=== PATIENT | male | born 1980 | race Caucasian/White ===

== ENCOUNTER 2019-03-26 06:15 | Inpatient (IN) | payer OTHER ==
--- NOTE | 2019-03-26 07:46 | PDOC ---
History of Present Illness - General Chief Complaint: Vomiting/Diarrhea Stated Complaint: GENERALIZED PAIN Time Seen by Provider: 03/26/19 07:46 History Source: Patient Exam Limitations: No Limitations - History of Present Illness Initial Comments: 03/26/19 07:59 38y previously healthy M presenting w 5d nausea/vomiting, loose stools (4x/day), chills, and 2d mild intermittent RLQ/LLQ, R low back pain radiating up, and dyuria. Drinks 1-2 alcoholic drinks/day. Denies recent illness, did not take any pain meds/antibiotics. Denies fever, cough, chest pain, SOB. Past History - Past Medical History Allergies/Adverse Reactions: Allergies Allergy/AdvReac Type Severity Reaction Status Date / Time No Known Allergies Allergy Verified 03/26/19 07:20 COPD: No GI Disorders: No Lung CA: No - Surgical History Cholecystectomy: No - Immunization History Immunization Up to Date: No - Psycho Social/Smoking Cessation Hx Smoking History: Unknown if ever smoked Have you smoked in the past 12 months: No Information on smoking cessation initiated: No Hx Alcohol Use: No Drug/Substance Use Hx: No Review of Systems - Review of Systems Constitutional: Yes: Chills. No: Fever HEENTM: No: Nose Pain, Throat Pain Respiratory: No: Cough, Shortness of Breath Cardiac (ROS): No: Chest Pain, Palpitations ABD/GI: Yes: Nausea. No: Abdominal Distended, Constipated, Diarrhea : Yes: Burning, Flank Pain Musculoskeletal: Yes: Back Pain. No: Joint Pain Integumentary: No: Bruising, Flushing Neurological: No: Headache, Seizure Psychiatric: No: Anxiety, Depression Endocrine: No: Intolerance to Cold, Intolerance to Heat Hematologic/Lymphatic: No: Anemia, Blood Clots *Physical Exam - Vital Signs Last Vital Signs Temp Pulse Resp BP Pulse Ox 98.1 F 102 H 18 116/77 95 03/26/19 07:21 03/26/19 07:21 03/26/19 07:21 03/26/19 07:21 03/26/19 07:21 - Physical Exam General Appearance: Yes: Nourished, Appropriately Dressed. No: Apparent Distress HEENT: positive: EOMI, GWEN, Normal Voice, Hearing Grossly Normal. negative: Scleral Icterus (R), Scleral Icterus (L) Respiratory/Chest: positive: Lungs Clear, Normal Breath Sounds. negative: Chest Tender, Respiratory Distress Cardiovascular: positive: Regular Rhythm, Regular Rate, S1, S2. negative: Edema, Murmur Gastrointestinal/Abdominal: positive: Normal Bowel Sounds, Tender (mild tender most RLQ, referred to LLQ), Flat, Soft, Guarding (RLQ). negative: Organomegaly, Hernia, Mass Musculoskeletal: negative: CVA Tenderness (R), CVA Tenderness (L) Integumentary: positive: Normal Color, Dry Neurologic: positive: molder labels II-XII NML intact, Fully Oriented, Alert, Normal Mood/Affect, Normal Response, Responsive. negative: Sensory Deficit, Confused, Disoriented ED Treatment Course - LABORATORY CBC & Chemistry Diagram: 03/26/19 08:00 03/26/19 08:00 Medical Decision Making - Medical Decision Making 03/26/19 07:58 CT A/P acute, ruptured appendicitis w multiple lower abdominal and pelvic collections suspicious for abscesses UA 2+ protein, WBC 24 w left shift, Na 131, lipase 862, LFTs wnl --- 38y previously healthy M presenting w 5d nausea/vomiting, loose stools,, chills, and 2d mild intermittent RLQ/LLQ and dyuria Has acute, ruptured appendicitis w multiple lower abdominal and pelvic collections suspicious for abscesses. Low concern for UTI (clean) vs kidney stone (no hematuria) Given tylenol, zofran, 1L NS, zosyn Consulted Dr Ramirez surgery - advised no need for emergent surgery, manage w antibiotics, talked to Dr Cuevas for pigtail catheter, will do interval appendectomy in a few weeks Consulted Dr Cuevas IR for above reason Admitted m/s Dr Rowell for appendicitis PCP Dr Vega Discharge - Discharge Information Problems reviewed: Yes Clinical Impression/Diagnosis: Acute appendicitis Qualifiers: Acute appendicitis type: with localized peritonitis Appendicitis gangrene presence: without gangrene Appendicitis perforation presence: with perforation Appendicitis abscess presence: with abscess Qualified Code(s): K35.33 - Acute appendicitis with perforation and localized peritonitis, with abscess Condition: Stable - Follow up/Referral Referrals: ON STAFF,NOT [Primary Care Provider] - - Patient Discharge Instructions - Post Discharge Activity
[2019-03-26] MEDS ORDERED: KETOROLAC TROMETHAMINE 30 MG/1 ML VIAL IVPUSH ONE (07:53)
[2019-03-26] MEDS ORDERED: ONDANSETRON 4 MG/2 ML VIAL IVPUSH ONE (07:54)
[2019-03-26] MEDS ORDERED: ACETAMINOPHEN 1000 MG/100 ML VIAL (NON FORMULARY) IVPB ONE (07:58)
[2019-03-26] MEDS ORDERED: SODIUM CHLORIDE 0.9% 500 ML INFUS.BAG IV ONE (07:58)
[2019-03-26] MEDS ORDERED: ACETAMINOPHEN INJECTION 100 ML IVPB ONE (08:10)
[2019-03-26] MEDS ORDERED: ONDANSETRON 4 MG/2 ML VIAL ONE (08:11)
--- NOTE | 2019-03-26 09:17 | PDOC ---
Attending Attestation - Resident Resident Name: Eligio Howell - ED Attending Attestation I have performed the following: I have examined & evaluated the patient, The case was reviewed & discussed with the resident, I agree w/resident's findings & plan - HPI HPI: 03/26/19 09:11 Healthy 38-year-old male with no significant past medical or surgical history, daily 2 beer per night drinker, active smoker, presents with 5 days of GI complaints of nausea/vomiting/diarrhea/abdominal pain. No recent travel or sick contacts or antibiotics or history of recurring GI infections, presents with nonbloody vomiting and diarrhea that predominantly resolved about 2 days ago after lasting for 3 days, presents now with a persistent generalized abdominal pain that began 3 days ago most severely, constant for 2 days with some relief last night, then recurrence this morning. No h/o gallstones or pancreatitis. - Physicial Exam PE: 03/26/19 09:17 Afebrile, seated comfortably in chair No jaundice or pallor Heart is regular, lungs are clear Abdomen is soft/nondistended. Diffuse tenderness with guarding greatest in the right lower quadrant, does have referred pain to the right lower quadrant, no CVA tenderness. - Medical Decision Making 03/26/19 09:18 Healthy 38-year-old male with 5 days of ongoing GI complaints of abdominal pain/nausea/vomiting/loose stool, afebrile here with normal vital signs but exam localizing to the lower abdomen, particularly right lower quadrant. Presentation could be consistent with appendicitis, colitis, diverticulitis. Less likely related though nephrolithiasis is on the differential. Labs, urinalysis CT of the abdomen and pelvis Symptom control Reassess 03/26/19 12:12 acute ruptured appendicitis with several fluid collections/abscesses abx, surgery consulted
[2019-03-26 09:49] LABS: BASO % 0.1 % (0-2.0); EOS % 0.3 % (0-4.5); HEMATOCRIT 41.3 % (35.4-49); LYMPH % 5.2 % (8-40); MCH 30.3 pg (25.7-33.7); MCHC 33.8 g/dl (32.0-35.9); MEAN CELL VOLUME 89.4 fl (80-96); MEAN PLT VOLUME 8.6 fl (7.5-11.1); MONO % 12.1 % (3.8-10.2); NEUT % 82.3 % (42.8-82.8); PLATELET COUNT 295 K/MM3 (134-434); RBC 4.62 M/mm3 (4.00-5.60); RDW 13.5 % (11.9-15.9); WHITE BLOOD COUNT 24.1 K/mm3 (4.0-10.0)
[2019-03-26 09:50] LABS: EPI CELLS 13.6 /HPF (0-5/HPF); HYALINE CASTS 41 /lpf (0-8); PH,URINE 6.5 (5.0-8.0); URINE APPEARANCE CLOUDY; URINE BACTERIA 0.8 /hpf (NEGATIVE); URINE BILIRUBIN NEGATIVE (NEGATIVE); URINE COLOR YELLOW; URINE GLUCOSE (UA) NEGATIVE (NEGATIVE); URINE KETONE NEGATIVE (NEGATIVE); URINE LEUK ESTERASE NEGATIVE (NEGATIVE); URINE NITRITE NEGATIVE (NEGATIVE); URINE PROTEIN 2+ (NEGATIVE); URINE RBC 1 /hpf (0-4); URINE UROBILINOGEN 0.2 mg/dL (0.2-1.0); URINE WBC 6 /hpf (0-5)
[2019-03-26 10:25] LABS: ALBUMIN 2.7 g/dl (3.4-5.0); BILIRUBIN,TOTAL 0.5 mg/dL (0.2-1); CALCIUM 8.8 mg/dL (8.5-10.1); CREATININE 0.9 mg/dL (0.55-1.3); POTASSIUM 4.6 mmol/L (3.5-5.1)
[2019-03-26 10:42] LABS: ANISOCYTOSIS 0; MACROCYTOSIS 0; PLATELET ESTIMATE NORMAL
[2019-03-26] MEDS ORDERED: PIPERACILLIN/TAZOB 4.5 GM 4.5 GM in DEXTROSE 5%-WATER 100 ML IVPB ONE (11:52)
[2019-03-26] MEDS ORDERED: PIPERACILLIN/TAZOB 4.5 GM 4.5 GM/100 ML BAG IVPB ONE (12:38)
[2019-03-26] MEDS: SODIUM CHLORIDE 1,000 ML IV SCH (13:08)
--- NOTE | 2019-03-26 13:09 | CONSULT ---
- Consultation REQUESTING PROVIDER: General Surgery - Jean-Paul Ramirez CONSULT REQUEST: We have been asked to surgically evaluate this patient for acute appendicitis HPI: Called to evaluate 38 yo male without any PMHx or PSHx who presents to [facility] ED for evaulation of his abd pain x 5 days. States he has a high threshold for pain which is why he didn't come for medical evaluation sooner. Abdominal pain associated with n/v(nbnb) and diarrhea (x 3 days). Pain started periumbilical and migrated to right lower quadrant. Pain most sever about 2 days ago. States the pain resolved on its own last night. However, reoccurred this morning prompting him to seek emergent evaluation. Pain now persistent. Diffuse lower abd pain (R>L). Subjective fever as he never took his temp. Never took any OTC to alleviate his "fever". While in the ED he had ABD/PELVIC CT w/ Contrast which identified acute ruptured appendicitis with multiple lower abdominal and pelvic abscesses. Admits to loss of appetite and chills. Denies CP , palpitations, SOB or SOTO. Denies melena or hematochezia. Denies dysuria, frequency, urgency, hesitancy, hematuria, flank pain or genital pain. PMHx: Denies. PSHx: Denies. Home Meds: Denies. Allergies: NKDA ROS: CONSTITUTIONAL: Absent: generalized weakness, malaise, weight change CARDIOVASCULAR: Absent: syncope, irregular heart rate, lightheadedness, peripheral edema RESPIRATORY: Absent: cough, wheezing, stridor, hemoptysis GASTROINTESTINAL:Absent: SEE HPI GENITOURINARY: Absent: SEE HPI MUSCULOSKELETAL: Absent: myalgia, arthralgia, joint swelling, back pain, neck pain SKIN: Absent: rash, itching, pallor HEMATOLOGIC/IMMUNOLOGIC: Absent: easy bleeding, easy bruising, lymphadenopathy NEUROLOGIC: Absent: headache, paresthesias, dizziness, unsteady gait, seizure, mental status changes PSYCHIATRIC: Absent: anxiety, depression, suicidal or homicidal ideation, hallucinations. PE: GENERAL: A&O, NAD HEAD: NC. AT. EYES: PERRL, sclera anicteric, conjunctiva clear. LUNGS: CTA bilat HEART: RRR ABD: diffuse lower abd ttp (R>L). + rebound tenderness. no rigidity. hypoactive bowel sounds. no organomegaly appreciated MUSCULOSKELETAL: No CVAT bilat UE: 2+ pulses, warm, well-perfused. No cyanosis. Cap refill <2 seconds. No peripheral edema. LE: 2+ pulses, warm, well-perfused. No calf tenderness. No peripheral edema. NEUROLOGICAL: Normal speech, gait not observed. PSYCH: Cooperative. Good eye contact. Appropriate mood and affect. SKIN: Warm, dry, normal turgor, no rashes or lesions noted Last Vital Signs Temp Pulse Resp BP Pulse Ox 98.1 F 102 H 18 116/77 95 03/26/19 07:21 03/26/19 07:21 03/26/19 07:21 03/26/19 07:21 03/26/19 07:21 CBC, BMP 03/26/19 08:00 03/26/19 08:00 Urine Test Results Urine Color Yellow 03/26/19 08:00 Urine Appearance Cloudy 03/26/19 08:00 Urine pH 6.5 (5.0-8.0) 03/26/19 08:00 Ur Specific [place] 1.030 (1.010-1.035) 03/26/19 08:00 Urine Protein 2+ (NEGATIVE) H 03/26/19 08:00 Urine Glucose (UA) Negative (NEGATIVE) 03/26/19 08:00 Urine Ketones Negative (NEGATIVE) 03/26/19 08:00 Urine Blood Negative (NEGATIVE) 03/26/19 08:00 Urine Nitrite Negative (NEGATIVE) 03/26/19 08:00 Urine Bilirubin Negative (NEGATIVE) 03/26/19 08:00 Ur Leukocyte Esterase Negative (NEGATIVE) 03/26/19 08:00 Hepatic Panel Total Bilirubin 0.5 mg/dL (0.2-1) 03/26/19 08:00 AST 27 U/L (15-37) 03/26/19 08:00 ALT 27 U/L (13-61) 03/26/19 08:00 Alkaline Phosphatase 74 U/L (45-117) 03/26/19 08:00 Albumin 2.7 g/dl (3.4-5.0) L 03/26/19 08:00 Problem List - Problems (1) Acute appendicitis with generalized peritonitis and abscess Assessment/Plan: 38 yo male with acute ruptured appendicitis as identified on CT scan (contrast study). Study reviewed with Dr. Thomson and Dr. Ramirez. - Spoke with IR and they are willing to place drain --> CT guided drain/ catheter (send fluid for C&S) - ID for termite exterminator helper antibiotic recommendation (PO vs. PICC) - Tylenol 650 mg PO Q6H PRN fever > 100.4F - OOB and ambulate - Trend WBC - Cont medical management - No surgical intervention at this time. Will need interval appendectomy as out- patient Above plan discussed with Dr. Ramirez and agrees. Code(s): K35.21 - ACUTE APPENDICITIS WITH GEN PERITONITIS, WITH ABSCESS Visit type - Case Type Case Type: ED Admission - Emergency Emergency Visit: Yes Care time: The patient presented to the Emergency Department on the above date and was hospitalized for further evaluation of their emergent condition. - New patient This patient is new to me today: Yes Date on this admission: 03/26/19
[2019-03-26] MEDS ORDERED: morphine CARPU-JECT 4 MG/1 ML DISP.SYRIN IVPUSH ONE ×2 (13:12→15:44)
[2019-03-26] MEDS ORDERED: morphine SULFATE 4 MG/ML VIAL ONE ×3 (13:23→21:25)
--- NOTE | 2019-03-26 14:15 | CON.ID ---
Consult Consult Specialty:: infectious diseases Referred by:: Reason for Consultation:: abd pain,appendicitis,appendicular abscess - History of Present Illness Chief Complaint: abd pain History of Present Illness: 38 M no significant PMHx who presents to [facility] ED for evaluation of lower abdominal pain. Patient first initially felt discomfort around his umbilicus around 2-3 weeks ago, especially when working out, pain slowly evolved and resulted in writhing RLQ and lower abdominal pain. Patient states he has a high threshold for pain which is why he didn't come for medical evaluation sooner. Endorses some loose stool, denies hematochezia/dark stool, endorses some chills, denies overt fevers, but has had repeated N/V and decreased appetite. Patient was emergently evaluated by surgery team for evaluation of a ruptured appendix on CT abd, in which surgery team decided non- surgical management and rather IR intervention patient was taken to ir and the abscess was drained currently patient feels much better with pus in the drain patient smokes everyday and also takes couple of drinks everyday - History Source History Provided By: Patient Limitations to Obtaining History: No Limitations - Alcohol/Substance Use Hx Alcohol Use: No - Smoking History Smoking history: Unknown if ever smoked Have you smoked in the past 12 months: No Home Medications - Allergies Allergies/Adverse Reactions: Allergies Allergy/AdvReac Type Severity Reaction Status Date / Time No Known Allergies Allergy Verified 03/26/19 07:20 - Home Medications Home Medications: Ambulatory Orders Lisdexamfetamine Dimesylate [Vyvanse] 50 mg PO DAILY 03/27/19 Review of Systems - Review of Systems Constitutional: reports: Other Eyes: reports: No Symptoms HENT: reports: No Symptoms Cardiovascular: reports: No Symptoms Respiratory: reports: No Symptoms Gastrointestinal: reports: Abdominal Pain, Other Genitourinary: reports: No Symptoms Musculoskeletal: reports: No Symptoms Integumentary: reports: No Symptoms Neurological: reports: No Symptoms Endocrine: reports: No Symptoms Hematology/Lymphatic: reports: No Symptoms Psychiatric: reports: No Symptoms Physical Exam Vital Signs: Vital Signs Temperature 98.1 F 03/26/19 07:21 Pulse Rate 102 H 03/26/19 07:21 Respiratory Rate 18 03/26/19 07:21 Blood Pressure 116/77 03/26/19 07:21 O2 Sat by Pulse Oximetry (%) 95 03/26/19 07:21 Constitutional: Yes: Well Nourished, Calm, Mild Distress Eyes: Yes: Conjunctiva Clear HENT: Yes: Atraumatic, Normocephalic Neck: Yes: Supple, Trachea Midline Cardiovascular: Yes: Regular Rate and Rhythm Respiratory: Yes: Regular, CTA Bilaterally Gastrointestinal: Yes: Soft, Hypoactive Bowel Sounds, Other (drain present) Musculoskeletal: Yes: WNL Extremities: Yes: WNL Neurological: Yes: Alert, Oriented Psychiatric: Yes: Alert, Oriented Labs: CBC, BMP 03/26/19 08:00 03/26/19 08:00 Imaging - Results Cat Scan: Report Reviewed, Image Reviewed Assessment/Plan 38 M no PMHx, w/ acute ruptured appendicitis with abscess abd pain appensdicitis abd abscess pain plan we will continue abx await for cx reports close watch rest as pert team
--- NOTE | 2019-03-26 16:16 | HP ---
38 M no significant PMHx or PSHx who presents to [facility] ED for evaluation of lower abdominal pain. Patient first initially felt discomfort around his umbilicus around 2-3 weeks ago, especially when working out, pain slowly evolved and resulted in writhing RLQ and lower abdominal pain. Patient states he has a high threshold for pain which is why he didn't come for medical evaluation sooner. Endorses some loose stool, denies hematochezia/dark stool, endorses some chills, denies overt fevers, but has had repeated N/V and decreased appetite. Patient was emergently evaluated by surgery team for evaluation of a ruptured appendix on CT abd, in which surgery team decided non- surgical management and rather IR intervention with a pigtail drain for multiple abscesses in his abdomen. Patient empirically started on Zosyn and IV hydration. PE GA mild distress, AAox3, speaking in full sentences HEENT NC/AT, EOMI, no oral thrush, neck supple, no JVD Chest CTAB, no crackles or wheezing CVS S1, S2+, RRR, no m/r/g Abd lower abdominal tenderness, pain at McBurney's point present, rebound tenderness present RLQ and LLQ, BS+ Ext No LE edema, no calf tenderness Vital Signs - 24 hr 03/26/19 03/26/19 03/26/19 07:21 12:30 15:02 Temperature 98.1 F 98.0 F Pulse Rate 102 H 83 Pulse Rate [ Left Upper Arm] Pulse Rate [ 78 Right] Respiratory 18 18 14 Rate Respiratory Rate [Left Upper Arm] Blood Pressure 116/77 115/72 Blood Pressure [Left Upper Arm ] Blood Pressure 126/74 [Right Arm] O2 Sat by Pulse 95 98 100 Oximetry (%) O2 Sat by Pulse Oximetry (%) [ Left Upper Arm] 03/26/19 03/26/19 15:18 15:27 Temperature Pulse Rate 82 Pulse Rate [ 81 Left Upper Arm] Pulse Rate [ Right] Respiratory 15 Rate Respiratory 14 Rate [Left Upper Arm] Blood Pressure 119/58 L Blood Pressure 119/58 L [Left Upper Arm ] Blood Pressure [Right Arm] O2 Sat by Pulse 100 Oximetry (%) O2 Sat by Pulse 100 Oximetry (%) [ Left Upper Arm] Laboratory Results - last 24 hr 03/26/19 03/26/19 03/26/19 08:00 08:00 08:00 WBC 24.1 H RBC 4.62 Hgb 14.0 Hct 41.3 MCV 89.4 MCH 30.3 MCHC 33.8 RDW 13.5 Plt Count 295 MPV 8.6 Absolute Neuts (auto) 19.8 H Neutrophils % 82.3 Neutrophils % (Manual) 57.4 Band Neutrophils % 14.8 Lymphocytes % 5.2 L Lymphocytes % (Manual) 3.0 L Monocytes % 12.1 H Monocytes % (Manual) 8 Eosinophils % 0.3 Eosinophils % (Manual) 0.0 Basophils % 0.1 Basophils % (Manual) 0.0 Myelocytes % (Man) 4 H Promyelocytes % (Man) 3 H Blast Cells % (Manual) 0 Nucleated RBC % 0 Metamyelocytes 1 Hypochromia 0 Platelet Estimate Normal Platelet Comment Present Polychromasia 0 Poikilocytosis 0 Anisocytosis 0 Microcytosis 0 Macrocytosis 0 Sodium 131 L Potassium 4.6 Chloride 93 L Carbon Dioxide 31 Anion Gap 7 L BUN 22.0 H Creatinine 0.9 Est GFR (CKD-EPI)AfAm 126.02 Est GFR (CKD-EPI)NonAf 108.73 Random Glucose 84 Calcium 8.8 Total Bilirubin 0.5 AST 27 ALT 27 Alkaline Phosphatase 74 Total Protein 7.0 Albumin 2.7 L Lipase 862 H Urine Color Yellow Urine Appearance Cloudy Urine pH 6.5 Ur Specific [place] 1.030 Urine Protein 2+ H Urine Glucose (UA) Negative Urine Ketones Negative Urine Blood Negative Urine Nitrite Negative Urine Bilirubin Negative Urine Urobilinogen 0.2 Ur Leukocyte Esterase Negative Urine WBC (Auto) 6 Urine RBC (Auto) 1 Urine Casts (Auto) 41 U Epithel Cells (Auto) 13.6 Urine Bacteria (Auto) 0.8 Current Medications Generic Name Dose Route Start Last Admin Trade Name Freq PRN Reason Stop Dose Admin Sodium Chloride 1,000 mls @ 100 mls/hr 03/26/19 13:00 03/26/19 13:08 Normal Saline - IV 100 mls/hr ASDIR KENNETH Administration Piperacillin Sod/Tazobactam 100 mls @ 200 mls/hr 03/26/19 18:00 Sod 4.5 gm/ Dextrose IVPB Q8H-IV KENNETH Protocol A/P: 38 M no PMHx, w/ acute ruptured appendicitis as identified on CT scan (contrast study) with multiple visible pelvic collections concerning for development of abscesses . Ruptured appendix complicated with abscess formation aggressive IVF, cont. Zosyn, serial abdominal exams, lactic acid/CPK levels, IR evaluation for drainage IV Morphine for pain control If diarrhea continues send for ova/parasites/C. diff/culture/WBCs (stool) Surgery consult: Dr Ramirez IR consult: Dr Regalado DVT ppx: Heparin SC FEN: IVF/daily lytes/NPO for now Med-surg Visit type - Emergency Visit Emergency Visit: Yes ED Registration Date: 03/26/19 Care time: The patient presented to the Emergency Department on the above date and was hospitalized for further evaluation of their emergent condition. - New Patient This patient is new to me today: Yes Date on this admission: 03/26/19 - Critical Care Critical Care patient: No
[2019-03-26] MEDS: PIPERACILLIN/TAZOB 4.5 GM 4.5 GM in DEXTROSE 5%-WATER 100 ML IVPB SCH (18:09)
[2019-03-26 20:58] LABS: INR 1.23 (0.83-1.09); PROTHROMBIN TIME (PATIENT) 14.6 SEC (9.7-13.0)
[2019-03-26] MEDS: morphine SULFATE 4 MG/ML VIAL IVPUSH PRN (21:29)
[2019-03-27] MEDS: PIPERACILLIN/TAZOB 4.5 GM 4.5 GM in DEXTROSE 5%-WATER 100 ML IVPB SCH ×3 (01:53→17:29)
[2019-03-27] MEDS: SODIUM CHLORIDE 1,000 ML IV SCH ×2 (03:30→14:39)
[2019-03-27] MEDS: morphine SULFATE 4 MG/ML VIAL IVPUSH PRN ×4 (03:30→21:49)
[2019-03-27] MEDS ORDERED: MORPHINE SULFATE 2 MG/ML VIAL IVPUSH ONE (04:49)
[2019-03-27] MEDS ORDERED: ACETAMINOPHEN 1000 MG/100 ML VIAL (NON FORMULARY) IVPB ONE (04:51)
[2019-03-27] MEDS ORDERED: DEXTROSE 5%-WATER 100 ML IVPB ONE ×2 (09:09→16:16)
[2019-03-27] MEDS ORDERED: PIPERACILLIN/TAZOBACTAM 4.5 GM VIAL IVPB ONE ×2 (09:09→16:16)
[2019-03-27] MEDS ORDERED: FLU VACCINE QUAD 60 MCG/0.5 ML (MDV 19-20) IM ONE (10:00)
--- NOTE | 2019-03-27 10:12 | PN ---
Progress Note (short form) - Note Progress Note: Surgery Patient being follow for perforated appendix now POD #1 IR drain placement seen and examined at bedside with no new complaints. Patient states the pain is much better. He is still NPO. He denies any CP, SOB, N/V, fever or chills. Vital Signs Temp 98.3 F 03/27/19 03:30 Pulse 110 H 03/27/19 03:30 Resp 18 03/27/19 03:30 BP 121/73 03/27/19 03:30 Pulse Ox 98 03/27/19 03:30 Intake & Output 03/26/19 03/26/19 03/27/19 11:59 23:59 11:59 Intake Total 450 300 Output Total 75 Balance 375 300 Weight 240 lb 231 lb 7 oz Intake: IV 400 200 Normal Saline - 1,000 ml 400 200 @ 100 mls/hr IV ASDIR KENNETH Rx#:[id number] IVPB 50 100 Oral 0 Output: Gastric Drainage 75 Other: Voiding Method Toilet Toilet Toilet Height 6 ft 1 in 6 ft 1 in Body Mass Index (BMI) 31.6 30.5 Weight Measurement Method Standing Scale Weight Measurement Method Est/Stated by Patient CBC, BMP 03/26/19 08:00 03/26/19 08:00 PE: A&Ox3, NAD Unlabored resp on RA ABD: obese and mild TTP throughout with focal TTP over LLQ, some guarding, no masses of lesions, Drain in place in LLQ and draining yellow/clear d/c. drain dressing clean and dry Problem List - Problems (1) Acute appendicitis Assessment/Plan: 38 yo male with acute ruptured appendicitis as identified on CT scan (contrast study). POD#1 IR drain placement doing well - ID for intermission coordinator antibiotic recommendation (PO vs. PICC) - Tylenol 650 mg PO Q6H PRN fever > 100.4F - OOB and ambulate - Trend WBC - Cont medical management - No surgical intervention at this time. Will need interval appendectomy as out- patient Above plan discussed with Dr. Ramirez and agrees. Code(s): K35.80 - UNSPECIFIED ACUTE APPENDICITIS Qualifiers: Acute appendicitis type: with localized peritonitis Appendicitis gangrene presence: without gangrene Appendicitis perforation presence: with perforation Appendicitis abscess presence: with abscess Qualified Code(s): K35.33 - Acute appendicitis with perforation and localized peritonitis, with abscess (2) Acute appendicitis with generalized peritonitis and abscess Code(s): K35.21 - ACUTE APPENDICITIS WITH GEN PERITONITIS, WITH ABSCESS
[2019-03-27 12:28] LABS: BASO % 0.3 % (0-2.0); EOS % 0.6 % (0-4.5); HEMATOCRIT 37.7 % (35.4-49); HEMOGLOBIN 12.6 GM/dL (11.7-16.9); LYMPH % 6.5 % (8-40); MCH 30.3 pg (25.7-33.7); MCHC 33.6 g/dl (32.0-35.9); MEAN CELL VOLUME 90.2 fl (80-96); MEAN PLT VOLUME 8.2 fl (7.5-11.1); MONO % 8.3 % (3.8-10.2); NEUT % 84.3 % (42.8-82.8); PLATELET COUNT 297 K/MM3 (134-434); RBC 4.18 M/mm3 (4.00-5.60); RDW 13.5 % (11.9-15.9); WHITE BLOOD COUNT 24.9 K/mm3 (4.0-10.0)
[2019-03-27 12:55] LABS: ALBUMIN 2.2 g/dl (3.4-5.0); BILIRUBIN,TOTAL 0.6 mg/dL (0.2-1); BLOOD UREA NITROGEN 17.8 mg/dL (7-18); CALCIUM 7.9 mg/dL (8.5-10.1); CREATININE 0.7 mg/dL (0.55-1.3); TOT PROT 5.8 g/dl (6.4-8.2)
[2019-03-27 13:22] LABS: ANISOCYTOSIS 1+; MACROCYTOSIS 0; PLATELET ESTIMATE NORMAL; TOXIC GRANULATION 2+
--- NOTE | 2019-03-27 15:06 | PN ---
Physical Exam: SUBJECTIVE: Patient seen and examined. denies abdominal pain. denies any nausea or vomiting. OBJECTIVE: Patient is a 38 year old male with no significant past medical history who presents to the Ed for abdominal pain around his umbilicus for apx 2-3 weeks. He was found to have an acute, ruptured appendicitis wth multiple lower abdominal and pelvic fluid collections suspicious for abscess. imaging: abd pelvis/ct 03/27/2019: findings consistent with acute ruptured appendicitis with multiple lower abdominal and pelvic fluid collections suspicious for abscesses. Period Temp Pulse Resp BP Sys/Thomas Pulse Ox Last 24 Hr 98 F-98.8 F 81-110 14-20 112-126/58-77 96-100 GENERAL: The patient is awake, alert, and fully oriented, in no acute distress. HEAD: Normal with no signs of trauma. EYES: PERRL, extraocular movements intact, sclera anicteric, conjunctiva clear. No ptosis. ENT: Ears normal, nares patent, oropharynx clear without exudates, moist mucous membranes. NECK: Trachea midline, full range of motion, supple. LUNGS: Breath sounds equal, clear to auscultation bilaterally, no wheezes, no crackles, no accessory muscle use. HEART: Regular rate and rhythm, S1, S2 without murmur, rub or gallop. ABDOMEN: right lower quad pain/tenderness, drain with minimal output. EXTREMITIES: 2+ pulses, warm, well-perfused, no edema. NEUROLOGICAL: Normal speech Laboratory Results - last 24 hr 03/26/19 03/26/19 03/26/19 13:45 20:10 20:20 WBC RBC Hgb Hct MCV MCH MCHC RDW Plt Count MPV Absolute Neuts (auto) Neutrophils % Neutrophils % (Manual) Band Neutrophils % Lymphocytes % Lymphocytes % (Manual) Monocytes % Monocytes % (Manual) Eosinophils % Eosinophils % (Manual) Basophils % Basophils % (Manual) Myelocytes % (Man) Promyelocytes % (Man) Blast Cells % (Manual) Nucleated RBC % Metamyelocytes Hypochromia Toxic Granulation Platelet Estimate Platelet Comment Polychromasia Poikilocytosis Anisocytosis Microcytosis Macrocytosis Spherocytes PT with INR 14.60 H INR 1.23 H Sodium Potassium Chloride Carbon Dioxide Anion Gap BUN Creatinine Est GFR (CKD-EPI)AfAm Est GFR (CKD-EPI)NonAf Random Glucose Lactic Acid 1.4 Calcium Total Bilirubin AST ALT Alkaline Phosphatase Total Protein Albumin Blood Type O POSITIVE Antibody Screen Negative 03/27/19 03/27/19 11:30 11:30 WBC 24.9 H RBC 4.18 Hgb 12.6 Hct 37.7 MCV 90.2 MCH 30.3 MCHC 33.6 RDW 13.5 Plt Count 297 MPV 8.2 Absolute Neuts (auto) 21.0 H Neutrophils % 84.3 H Neutrophils % (Manual) 70.7 D Band Neutrophils % 11.1 Lymphocytes % 6.5 L D Lymphocytes % (Manual) 2.0 L D Monocytes % 8.3 Monocytes % (Manual) 8 Eosinophils % 0.6 D Eosinophils % (Manual) 1.0 D Basophils % 0.3 Basophils % (Manual) 0.0 Myelocytes % (Man) 6 H D Promyelocytes % (Man) 0 D Blast Cells % (Manual) 0 Nucleated RBC % 2 H Metamyelocytes 1 Hypochromia 0 Toxic Granulation 2+ Platelet Estimate Normal Platelet Comment Present Polychromasia 1+ Poikilocytosis 1+ Anisocytosis 1+ Microcytosis 1+ Macrocytosis 0 Spherocytes 1+ PT with INR INR Sodium 136 Potassium 4.0 Chloride 104 Carbon Dioxide 24 Anion Gap 8 BUN 17.8 Creatinine 0.7 Est GFR (CKD-EPI)AfAm 139.73 Est GFR (CKD-EPI)NonAf 120.56 Random Glucose 79 Lactic Acid Calcium 7.9 L Total Bilirubin 0.6 AST 21 ALT 22 Alkaline Phosphatase 57 Total Protein 5.8 L Albumin 2.2 L Blood Type Antibody Screen Active Medications Generic Name Dose Route Start Last Admin Trade Name Freq PRN Reason Stop Dose Admin Acetaminophen 1,000 mg 03/27/19 14:55 Ofirmev Injection - IVPB 03/28/19 14:55 Q6H PRN PAIN LEVEL 4 - 6 Sodium Chloride 1,000 mls @ 100 mls/hr 03/26/19 13:00 03/27/19 14:39 Normal Saline - IV 100 mls/hr ASDIR KENNETH Administration Piperacillin Sod/Tazobactam 100 mls @ 200 mls/hr 03/26/19 18:00 03/27/19 09: 22 Sod 4.5 gm/ Dextrose IVPB 200 mls/hr Q8H-IV KENNETH Administration Protocol Morphine Sulfate 4 mg 03/27/19 07:00 03/27/19 08:20 Morphine Sulfate IVPUSH 4 mg Q4H PRN Administration PAIN LEVEL 7 - 10 ASSESSMENT/PLAN: Problem List - Problems (1) Acute appendicitis Assessment/Plan: acute ruptured appendicitis with multiple lower abdominal and pelvic fluid collections suspicious for abscesses. ID on board, patient currently on Zosyn. Length of antibiotic therapy to be determined by ID. Patient ambulatory, denies any other symptoms. some pain on drain site, but tolerable can have ice chips trend WBC, monitor vitals, labs Seen by surgery and no surgical intervention recommended at this time. May need interval appendectomy as an outpatient. Code(s): K35.80 - UNSPECIFIED ACUTE APPENDICITIS Qualifiers: Acute appendicitis type: with localized peritonitis Appendicitis gangrene presence: without gangrene Appendicitis perforation presence: with perforation Appendicitis abscess presence: with abscess Qualified Code(s): K35.33 - Acute appendicitis with perforation and localized peritonitis, with abscess (2) Acute appendicitis with generalized peritonitis and abscess Assessment/Plan: monitor drain output Code(s): K35.21 - ACUTE APPENDICITIS WITH GEN PERITONITIS, WITH ABSCESS (3) Prophylactic measure Assessment/Plan: fen ns at 100cc/hr npo, can have ice chips heparin bid monitor electrolytes incentive spriometer full code Code(s): Z29.9 - ENCOUNTER FOR PROPHYLACTIC MEASURES, UNSPECIFIED Visit type - Emergency Visit Emergency Visit: Yes ED Registration Date: 03/26/19 Care time: The patient presented to the Emergency Department on the above date and was hospitalized for further evaluation of their emergent condition. - New Patient This patient is new to me today: No - Critical Care Critical Care patient: No - Discharge Referral Referred to [facility] Med P.C.: No
--- NOTE | 2019-03-27 15:35 | EKG ---
Test Reason : Blood Pressure : / mmHG Vent. Rate : 107 BPM Atrial Rate : 107 BPM P-R Int : 130 ms QRS Dur : 086 ms QT Int : 314 ms P-R-T Axes : 025 020 006 degrees QTc Int : 419 ms SINUS TACHYCARDIA OTHERWISE NORMAL ECG NO PREVIOUS ECGS AVAILABLE Confirmed by SIMON UGARTE MD ([id number]) on 03/27/2019 3:35:22 PM Referred By: Confirmed By:SIMON UGARTE MD
[2019-03-27] MEDS: ACETAMINOPHEN 1000 MG/100 ML VIAL (NON FORMULARY) IVPB PRN (17:58)
[2019-03-28] MEDS ORDERED: DEXTROSE 5%-WATER 100 ML IVPB ONE ×3 (01:05→15:54)
[2019-03-28] MEDS ORDERED: PIPERACILLIN/TAZOBACTAM 4.5 GM VIAL IVPB ONE ×3 (01:05→15:54)
[2019-03-28] MEDS: SODIUM CHLORIDE 1,000 ML IV SCH ×2 (01:06→13:52)
[2019-03-28] MEDS: PIPERACILLIN/TAZOB 4.5 GM 4.5 GM in DEXTROSE 5%-WATER 100 ML IVPB SCH ×3 (01:07→17:02)
[2019-03-28] MEDS: morphine SULFATE 4 MG/ML VIAL IVPUSH PRN ×4 (01:29→21:02)
[2019-03-28] MEDS: ACETAMINOPHEN 1000 MG/100 ML VIAL (NON FORMULARY) IVPB PRN (02:59)
--- NOTE | 2019-03-28 10:16 | PN ---
Progress Note, Physician History of Present Illness: stable no issues pus still draining - Current Medication List Current Medications: Active Medications Acetaminophen (Ofirmev Injection -) 1,000 mg IVPB Q6H PRN PRN Reason: PAIN LEVEL 4 - 6 Stop: 03/28/19 14:55 Last Admin: 03/28/19 02:59 Dose: 1,000 mg Sodium Chloride (Normal Saline -) 1,000 mls @ 100 mls/hr IV ASDIR KENNETH Last Admin: 03/28/19 01:06 Dose: 100 mls/hr Piperacillin Sod/Tazobactam (Sod 4.5 gm/ Dextrose) 100 mls @ 200 mls/hr IVPB Q8H-IV KENNETH; Protocol Last Admin: 03/28/19 09:10 Dose: 200 mls/hr Morphine Sulfate (Morphine Sulfate) 4 mg IVPUSH Q4H PRN PRN Reason: PAIN LEVEL 7 - 10 Last Admin: 03/28/19 05:30 Dose: 4 mg - Objective Vital Signs: Vital Signs Temperature 98 F 03/28/19 09:46 Pulse Rate 105 H 03/28/19 09:46 Respiratory Rate 17 03/28/19 09:46 Blood Pressure 122/69 03/28/19 09:46 O2 Sat by Pulse Oximetry (%) 94 L 03/28/19 09:00 Constitutional: Yes: No Distress, Calm Cardiovascular: Yes: S1, S2 Respiratory: Yes: Regular, CTA Bilaterally Gastrointestinal: Yes: Normal Bowel Sounds, Soft, Other (drainage tube in place) Musculoskeletal: Yes: WNL Extremities: Yes: WNL Neurological: Yes: Alert, Oriented Psychiatric: Yes: Alert, Oriented Labs: CBC, BMP 03/27/19 11:30 03/27/19 11:30 INR, PTT INR 1.23 (0.83-1.09) H 03/26/19 20:10 Assessment/Plan 38 M no PMHx, w/ acute ruptured appendicitis with abscess abd pain appensdicitis abd abscess pain plan we will continue abx await for cx reports close watch rest as pert team
--- NOTE | 2019-03-28 11:09 | PN ---
Progress Note (short form) - Note Progress Note: Attending Surgeon HD#3-perforated appendicitis w/# intra abdominal collections No c/o; ID input appreciated VSS AF abdo-soft; non tender; drain in place w/purulent output; o/w negative WBC 24.9 Cultures noted IMP: perforated appendicitis w/# intra abdominal collections PLAN: Continue IVF/IVABS/trial of clear liquids/trend WBC/OOB Jean-Paul Ramirez MD FACS
[2019-03-28 13:13] LABS: BASO % 0.3 % (0-2.0); EOS % 0.4 % (0-4.5); HEMATOCRIT 36.3 % (35.4-49); HEMOGLOBIN 12.2 GM/dL (11.7-16.9); LYMPH % 4.2 % (8-40); MCH 30.3 pg (25.7-33.7); MCHC 33.6 g/dl (32.0-35.9); MEAN CELL VOLUME 90.4 fl (80-96); MEAN PLT VOLUME 8.1 fl (7.5-11.1); MONO % 6.8 % (3.8-10.2); NEUT % 88.3 % (42.8-82.8); PLATELET COUNT 336 K/MM3 (134-434); RBC 4.02 M/mm3 (4.00-5.60); RDW 13.8 % (11.9-15.9); WHITE BLOOD COUNT 24.3 K/mm3 (4.0-10.0)
[2019-03-28 13:30] LABS: ALBUMIN 2.3 g/dl (3.4-5.0); BILIRUBIN,TOTAL 0.7 mg/dL (0.2-1); CALCIUM 7.9 mg/dL (8.5-10.1); CREATININE 0.7 mg/dL (0.55-1.3); MAGNESIUM 1.9 mg/dL (1.8-2.4); POTASSIUM 3.8 mmol/L (3.5-5.1); TOT PROT 6.2 g/dl (6.4-8.2)
[2019-03-28 15:20] LABS: ANISOCYTOSIS 0; MACROCYTOSIS 0; PLATELET ESTIMATE NORMAL
--- NOTE | 2019-03-28 16:04 | PN ---
Physical Exam: SUBJECTIVE: Patient seen and examined. denies abdominal pain. denies any nausea or vomiting. OBJECTIVE: Patient is a 38 year old male with no significant past medical history who presents to the Ed for abdominal pain around his umbilicus for apx 2-3 weeks. He was found to have an acute, ruptured appendicitis with multiple lower abdominal and pelvic fluid collections suspicious for abscess. currently on zosyn per ID. imaging: abd pelvis/ct 03/27/2019: findings consistent with acute ruptured appendicitis with multiple lower abdominal and pelvic fluid collections suspicious for abscesses. Vital Signs Period Temp Pulse Resp BP Sys/Thomas Pulse Ox Last 24 Hr 97.6 F-98.6 F 98-108 17-22 114-143/55-75 94-99 GENERAL: The patient is awake, alert, and fully oriented, in no acute distress. HEAD: Normal with no signs of trauma. EYES: PERRL, extraocular movements intact, sclera anicteric, conjunctiva clear. No ptosis. ENT: Ears normal, nares patent, oropharynx clear without exudates, moist mucous membranes. NECK: Trachea midline, full range of motion, supple. LUNGS: Breath sounds equal, clear to auscultation bilaterally, no wheezes, no crackles, no accessory muscle use. HEART: Regular rate and rhythm, S1, S2 without murmur, rub or gallop. ABDOMEN: right lower quad pain/tenderness, drain with minimal output. EXTREMITIES: 2+ pulses, warm, well-perfused, no edema. NEUROLOGICAL: Normal speech Laboratory Results - last 24 hr 03/28/19 03/28/19 03/28/19 12:20 12:20 13:00 WBC 24.3 H RBC 4.02 Hgb 12.2 Hct 36.3 MCV 90.4 MCH 30.3 MCHC 33.6 RDW 13.8 Plt Count 336 MPV 8.1 Absolute Neuts (auto) 21.5 H Neutrophils % 88.3 H Neutrophils % (Manual) 86.1 H D Band Neutrophils % 0.0 Lymphocytes % 4.2 L D Lymphocytes % (Manual) 4.0 L D Monocytes % 6.8 Monocytes % (Manual) 5 Eosinophils % 0.4 Eosinophils % (Manual) 1.0 Basophils % 0.3 Basophils % (Manual) 1.0 D Myelocytes % (Man) 0 D Promyelocytes % (Man) 0 Blast Cells % (Manual) 0 Nucleated RBC % 0 Metamyelocytes 2 D Hypochromia 0 Platelet Estimate Normal Polychromasia 0 Poikilocytosis 0 Anisocytosis 0 Microcytosis 0 Macrocytosis 0 Sodium 136 Potassium 3.8 Chloride 102 Carbon Dioxide 24 Anion Gap 10 BUN 14.0 Creatinine 0.7 Est GFR (CKD-EPI)AfAm 139.73 Est GFR (CKD-EPI)NonAf 120.56 Random Glucose 93 Calcium 7.9 L Magnesium 1.9 Total Bilirubin 0.7 AST 21 ALT 21 Alkaline Phosphatase 55 Total Protein 6.2 L Albumin 2.3 L Stool Occult Blood Negative Active Medications Generic Name Dose Route Start Last Admin Trade Name Freq PRN Reason Stop Dose Admin Heparin Sodium (Porcine) 5,000 unit 03/28/19 22:00 Heparin - SQ BID KENNETH Sodium Chloride 1,000 mls @ 100 mls/hr 03/26/19 13:00 03/28/19 13:52 Normal Saline - IV 100 mls/hr ASDIR KENNETH Administration Piperacillin Sod/Tazobactam 100 mls @ 200 mls/hr 03/26/19 18:00 03/28/19 09: 10 Sod 4.5 gm/ Dextrose IVPB 200 mls/hr Q8H-IV KENNETH Administration Protocol Morphine Sulfate 4 mg 03/27/19 07:00 03/28/19 15:59 Morphine Sulfate IVPUSH 4 mg Q4H PRN Administration PAIN LEVEL 7 - 10 Non-Formulary Medication 50 mg 03/29/19 10:00 Lisdexamfetamine Dimesylate [Vyvanse] PO DAILY KENNETH ASSESSMENT/PLAN: Problem List - Problems (1) Acute appendicitis Assessment/Plan: acute ruptured appendicitis with multiple lower abdominal and pelvic fluid collections suspicious for abscesses. ID on board, patient currently on Zosyn. Length of antibiotic therapy to be determined by ID. Patient ambulatory, denies any other symptoms. some pain on drain site, but tolerable diet advanced to clears trend WBC, monitor vitals, labs Seen by surgery and no surgical intervention recommended at this time. May need interval appendectomy as an outpatient. Code(s): K35.80 - UNSPECIFIED ACUTE APPENDICITIS Qualifiers: Acute appendicitis type: with localized peritonitis Appendicitis gangrene presence: without gangrene Appendicitis perforation presence: with perforation Appendicitis abscess presence: with abscess Qualified Code(s): K35.33 - Acute appendicitis with perforation and localized peritonitis, with abscess (2) Acute appendicitis with generalized peritonitis and abscess Assessment/Plan: monitor drain output Problems reviewed: No Code(s): K35.21 - ACUTE APPENDICITIS WITH GEN PERITONITIS, WITH ABSCESS (3) Prophylactic measure Assessment/Plan: fen ns at 100cc/hr clears, advance as tolerated heparin bid monitor electrolytes incentive spriometer full code Code(s): Z29.9 - ENCOUNTER FOR PROPHYLACTIC MEASURES, UNSPECIFIED Visit type - Emergency Visit Emergency Visit: Yes ED Registration Date: 03/26/19 Care time: The patient presented to the Emergency Department on the above date and was hospitalized for further evaluation of their emergent condition. - New Patient This patient is new to me today: No - Critical Care Critical Care patient: No - Discharge Referral Referred to [facility] Med P.C.: No
[2019-03-28] MEDS: HEPARIN NA (PORCINE) 5,000 UNITS/ML 1ML VIAL SQ SCH (21:02)
[2019-03-28] MEDS: DOCUSATE SODIUM 100 MG CAPSULE (FP) PO SCH (21:02)
[2019-03-29] MEDS ORDERED: DEXTROSE 5%-WATER 100 ML IVPB ONE ×3 (01:15→17:17)
[2019-03-29] MEDS ORDERED: PIPERACILLIN/TAZOBACTAM 4.5 GM VIAL IVPB ONE ×3 (01:15→17:17)
[2019-03-29] MEDS: PIPERACILLIN/TAZOB 4.5 GM 4.5 GM in DEXTROSE 5%-WATER 100 ML IVPB SCH ×3 (01:35→17:26)
[2019-03-29] MEDS: morphine SULFATE 4 MG/ML VIAL IVPUSH PRN ×6 (01:45→23:00)
[2019-03-29] MEDS ORDERED: LISDEXAMFETAMINE DIMESYLATE 50 MG PO SCH (10:00)
[2019-03-29] MEDS: HEPARIN NA (PORCINE) 5,000 UNITS/ML 1ML VIAL SQ SCH ×2 (10:00→22:21)
[2019-03-29] MEDS: DOCUSATE SODIUM 100 MG CAPSULE (FP) PO SCH ×2 (10:00→22:21)
--- NOTE | 2019-03-29 11:37 | PN ---
Progress Note (short form) - Note Progress Note: Attending Surgeon No c/o; tolerating clear liquid diet. VSS AF abdo-soft and non tender; drain purulent Cultures noted WBC pending today Drain output minimal IMP: stable PLAN: Continue present tx.; advance diet; check WBC.; will need f/u CT scan this week. Jean-Paul Ramirez MD FACS
[2019-03-29 12:55] LABS: BASO % 0.3 % (0-2.0); EOS % 0.8 % (0-4.5); HEMATOCRIT 37.3 % (35.4-49); HEMOGLOBIN 12.5 GM/dL (11.7-16.9); LYMPH % 7.1 % (8-40); MCH 30.4 pg (25.7-33.7); MCHC 33.3 g/dl (32.0-35.9); MEAN CELL VOLUME 91.2 fl (80-96); MEAN PLT VOLUME 7.9 fl (7.5-11.1); MONO % 7.2 % (3.8-10.2); NEUT % 84.6 % (42.8-82.8); PLATELET COUNT 319 K/MM3 (134-434); RBC 4.09 M/mm3 (4.00-5.60); RDW 13.3 % (11.9-15.9); WHITE BLOOD COUNT 20.1 K/mm3 (4.0-10.0)
[2019-03-29 13:44] LABS: ALBUMIN 2.4 g/dl (3.4-5.0); BILIRUBIN,TOTAL 0.5 mg/dL (0.2-1); BLOOD UREA NITROGEN 6.2 mg/dL (7-18); CALCIUM 7.8 mg/dL (8.5-10.1); CREATININE 0.7 mg/dL (0.55-1.3); MAGNESIUM 1.7 mg/dL (1.8-2.4); POTASSIUM 3.9 mmol/L (3.5-5.1); TOT PROT 6.1 g/dl (6.4-8.2)
[2019-03-29] MEDS: SODIUM CHLORIDE 1,000 ML IV SCH (14:39)
[2019-03-29 14:55] LABS: ANISOCYTOSIS 0; MACROCYTOSIS 0; PLATELET ESTIMATE NORMAL
[2019-03-29] MEDS ORDERED: MAGNESIUM OXIDE 400 MG TABLET (FP) PO ONE (15:02)
--- NOTE | 2019-03-29 17:42 | PN ---
Physical Exam: SUBJECTIVE: Patient seen and examined at the bedside. in no acute distress. feels well and ambulating in room. OBJECTIVE: Patient is a 38 year old male with no significant past medical history who presents to the Ed for abdominal pain around his umbilicus for apx 2-3 weeks. He was found to have an acute, ruptured appendicitis with multiple lower abdominal and pelvic fluid collections suspicious for abscess. currently on zosyn per ID. TOBY drain to gravity with scant ant of purulent drainage. imaging: abd pelvis/ct 03/27/2019: findings consistent with acute ruptured appendicitis with multiple lower abdominal and pelvic fluid collections suspicious for abscesses. Vital Signs Period Temp Pulse Resp BP Sys/Thomas Pulse Ox Last 24 Hr 98.2 F-99.0 F 90-104 20-20 106-113/53-70 96-97 GENERAL: The patient is awake, alert, and fully oriented, in no acute distress. HEAD: Normal with no signs of trauma. EYES: PERRL, extraocular movements intact, sclera anicteric, conjunctiva clear. No ptosis. ENT: Ears normal, nares patent, oropharynx clear without exudates, moist mucous membranes. NECK: Trachea midline, full range of motion, supple. LUNGS: Breath sounds equal, clear to auscultation bilaterally, no wheezes, no crackles, no accessory muscle use. HEART: Regular rate and rhythm, S1, S2 without murmur, rub or gallop. ABDOMEN: right lower quad pain/tenderness, drain with minimal output. EXTREMITIES: 2+ pulses, warm, well-perfused, no edema. NEUROLOGICAL: Normal speech Laboratory Results - last 24 hr 03/29/19 03/29/19 12:15 12:15 WBC 20.1 H RBC 4.09 Hgb 12.5 Hct 37.3 MCV 91.2 MCH 30.4 MCHC 33.3 RDW 13.3 Plt Count 319 MPV 7.9 Absolute Neuts (auto) 17.0 H Neutrophils % 84.6 H Neutrophils % (Manual) 86.9 H Band Neutrophils % 0.0 Lymphocytes % 7.1 L D Lymphocytes % (Manual) 4.1 L Monocytes % 7.2 Monocytes % (Manual) 2 L Eosinophils % 0.8 D Eosinophils % (Manual) 0.0 D Basophils % 0.3 Basophils % (Manual) 1.0 Myelocytes % (Man) 0 Promyelocytes % (Man) 1 D Blast Cells % (Manual) 0 Nucleated RBC % 0 Metamyelocytes 1 D Hypochromia 0 Platelet Estimate Normal Polychromasia 1+ Poikilocytosis 0 Anisocytosis 0 Microcytosis 0 Macrocytosis 0 Sodium 134 L Potassium 3.9 Chloride 102 Carbon Dioxide 23 Anion Gap 9 BUN 6.2 L Creatinine 0.7 Est GFR (CKD-EPI)AfAm 139.73 Est GFR (CKD-EPI)NonAf 120.56 Random Glucose 89 Calcium 7.8 L Magnesium 1.7 L Total Bilirubin 0.5 AST 25 ALT 24 Alkaline Phosphatase 53 Total Protein 6.1 L Albumin 2.4 L Lipase 542 H Active Medications Generic Name Dose Route Start Last Admin Trade Name Freq PRN Reason Stop Dose Admin Docusate Sodium 100 mg 03/28/19 22:00 03/29/19 10:00 Colace - PO 100 mg BID KENNETH Administration Heparin Sodium (Porcine) 5,000 unit 03/28/19 22:00 03/29/19 10:00 Heparin - SQ 5,000 unit BID KENNETH Administration Sodium Chloride 1,000 mls @ 100 mls/hr 03/26/19 13:00 03/29/19 14:39 Normal Saline - IV 100 mls/hr ASDIR KENNETH Administration Piperacillin Sod/Tazobactam 100 mls @ 200 mls/hr 03/26/19 18:00 03/29/19 17: 26 Sod 4.5 gm/ Dextrose IVPB 200 mls/hr Q8H-IV KENNETH Administration Protocol Morphine Sulfate 4 mg 03/27/19 07:00 03/29/19 14:40 Morphine Sulfate IVPUSH 4 mg Q4H PRN Administration PAIN LEVEL 7 - 10 Non-Formulary Medication 50 mg 03/29/19 10:00 Lisdexamfetamine Dimesylate [Vyvanse] PO DAILY KENNETH ASSESSMENT/PLAN: Problem List - Problems (1) Acute appendicitis Assessment/Plan: acute ruptured appendicitis with multiple lower abdominal and pelvic fluid collections suspicious for abscesses. ID on board, patient currently on Zosyn. Length of antibiotic therapy to be determined by ID. Patient ambulatory, denies any other symptoms. some pain on drain site, but tolerable diet advanced to full liquid trend WBC, monitor vitals, labs Seen by surgery and no surgical intervention recommended at this time. May need interval appendectomy as an outpatient. Code(s): K35.80 - UNSPECIFIED ACUTE APPENDICITIS Qualifiers: Acute appendicitis type: with localized peritonitis Appendicitis gangrene presence: without gangrene Appendicitis perforation presence: with perforation Appendicitis abscess presence: with abscess Qualified Code(s): K35.33 - Acute appendicitis with perforation and localized peritonitis, with abscess (2) Acute appendicitis with generalized peritonitis and abscess Assessment/Plan: monitor drain output Code(s): K35.21 - ACUTE APPENDICITIS WITH GEN PERITONITIS, WITH ABSCESS (3) Prophylactic measure Assessment/Plan: fen clears, advance as tolerated heparin bid monitor electrolytes incentive spriometer full code Code(s): Z29.9 - ENCOUNTER FOR PROPHYLACTIC MEASURES, UNSPECIFIED Visit type - Emergency Visit Emergency Visit: Yes ED Registration Date: 03/26/19 Care time: The patient presented to the Emergency Department on the above date and was hospitalized for further evaluation of their emergent condition. - New Patient This patient is new to me today: No - Critical Care Critical Care patient: No - Discharge Referral Referred to [facility] Med P.C.: No
[2019-03-30] MEDS ORDERED: ZOLPIDEM TARTRATE 5 MG TABLET PO ONE (01:20)
[2019-03-30] MEDS ORDERED: DEXTROSE 5%-WATER 100 ML IVPB ONE ×3 (01:52→17:07)
[2019-03-30] MEDS ORDERED: PIPERACILLIN/TAZOBACTAM 4.5 GM VIAL IVPB ONE ×3 (01:52→17:06)
[2019-03-30] MEDS: PIPERACILLIN/TAZOB 4.5 GM 4.5 GM in DEXTROSE 5%-WATER 100 ML IVPB SCH ×3 (01:57→17:19)
[2019-03-30] MEDS: morphine SULFATE 4 MG/ML VIAL IVPUSH PRN ×2 (03:44→08:19)
[2019-03-30] MEDS: HEPARIN NA (PORCINE) 5,000 UNITS/ML 1ML VIAL SQ SCH ×2 (09:29→21:39)
[2019-03-30] MEDS: DOCUSATE SODIUM 100 MG CAPSULE (FP) PO SCH ×2 (09:30→21:38)
--- NOTE | 2019-03-30 13:26 | PN ---
Physical Exam: SUBJECTIVE: Patient seen and examined OBJECTIVE: Patient is a 38 year old male with no significant past medical history who presents to the Ed for abdominal pain around his umbilicus for apx 2-3 weeks. He was found to have an acute, ruptured appendicitis with multiple lower abdominal and pelvic fluid collections suspicious for abscess. Patient currently on Zosyn per ID. TOBY drain to gravity with scant ant of purulent drainage, but continues to have output. WBC improving and per surgery will need to be re-imaged prior to discharge. imaging: abd pelvis/ct 03/27/2019: findings consistent with acute ruptured appendicitis with multiple lower abdominal and pelvic fluid collections suspicious for abscesses. Vital Signs Period Temp Pulse Resp BP Sys/Thomas Pulse Ox Last 24 Hr 98 F-99.0 F 95-108 17-20 107-128/54-70 96-97 GENERAL: The patient is awake, alert, and fully oriented, in no acute distress. HEAD: Normal with no signs of trauma. EYES: PERRL, extraocular movements intact, sclera anicteric, conjunctiva clear. No ptosis. ENT: Ears normal, nares patent, oropharynx clear without exudates, moist mucous membranes. NECK: Trachea midline, full range of motion, supple. LUNGS: Breath sounds equal, clear to auscultation bilaterally, no wheezes, no crackles, no accessory muscle use. HEART: Regular rate and rhythm, S1, S2 without murmur, rub or gallop. ABDOMEN: right lower quad pain/tenderness, drain with minimal output. EXTREMITIES: 2+ pulses, warm, well-perfused, no edema. NEUROLOGICAL: Normal speech Laboratory Results - last 24 hr 03/29/19 03/29/19 12:15 12:15 Neutrophils % (Manual) 86.9 H Band Neutrophils % 0.0 Lymphocytes % (Manual) 4.1 L Monocytes % (Manual) 2 L Eosinophils % (Manual) 0.0 D Basophils % (Manual) 1.0 Myelocytes % (Man) 0 Promyelocytes % (Man) 1 D Blast Cells % (Manual) 0 Metamyelocytes 1 D Hypochromia 0 Platelet Estimate Normal Polychromasia 1+ Poikilocytosis 0 Anisocytosis 0 Microcytosis 0 Macrocytosis 0 Sodium 134 L Potassium 3.9 Chloride 102 Carbon Dioxide 23 Anion Gap 9 BUN 6.2 L Creatinine 0.7 Est GFR (CKD-EPI)AfAm 139.73 Est GFR (CKD-EPI)NonAf 120.56 Random Glucose 89 Calcium 7.8 L Magnesium 1.7 L Total Bilirubin 0.5 AST 25 ALT 24 Alkaline Phosphatase 53 Total Protein 6.1 L Albumin 2.4 L Lipase 542 H Active Medications Generic Name Dose Route Start Last Admin Trade Name Freq PRN Reason Stop Dose Admin Docusate Sodium 100 mg 03/28/19 22:00 03/30/19 09:30 Colace - PO 100 mg BID KENNETH Administration Heparin Sodium (Porcine) 5,000 unit 03/28/19 22:00 03/30/19 09:29 Heparin - SQ 5,000 unit BID KENNETH Administration Piperacillin Sod/Tazobactam 100 mls @ 200 mls/hr 03/26/19 18:00 03/30/19 09: 28 Sod 4.5 gm/ Dextrose IVPB 200 mls/hr Q8H-IV KENNETH Administration Protocol Non-Formulary Medication 50 mg 03/29/19 10:00 Lisdexamfetamine Dimesylate [Vyvanse] PO DAILY KENNETH Oxycodone HCl 5 mg 03/30/19 13:01 Roxicodone - PO Q6H PRN PAIN LEVEL 7 - 10 ASSESSMENT/PLAN: Problem List - Problems (1) Acute appendicitis Assessment/Plan: acute ruptured appendicitis with multiple lower abdominal and pelvic fluid collections suspicious for abscesses. ID on board, patient currently on Zosyn. Length of antibiotic therapy to be determined by ID. WBC trending down Patient ambulatory, denies any other symptoms. some pain on drain site, but tolerable diet advanced to full liquid Seen by surgery and no surgical intervention recommended at this time. May need interval appendectomy as an outpatient. Code(s): K35.80 - UNSPECIFIED ACUTE APPENDICITIS Qualifiers: Acute appendicitis type: with localized peritonitis Appendicitis gangrene presence: without gangrene Appendicitis perforation presence: with perforation Appendicitis abscess presence: with abscess Qualified Code(s): K35.33 - Acute appendicitis with perforation and localized peritonitis, with abscess (2) Acute appendicitis with generalized peritonitis and abscess Assessment/Plan: monitor drain output Code(s): K35.21 - ACUTE APPENDICITIS WITH GEN PERITONITIS, WITH ABSCESS (3) Prophylactic measure Assessment/Plan: fen full liquid heparin bid monitor electrolytes incentive spriometer full code Code(s): Z29.9 - ENCOUNTER FOR PROPHYLACTIC MEASURES, UNSPECIFIED Visit type - Emergency Visit Emergency Visit: Yes ED Registration Date: 03/26/19 Care time: The patient presented to the Emergency Department on the above date and was hospitalized for further evaluation of their emergent condition. - New Patient This patient is new to me today: No - Critical Care Critical Care patient: No - Discharge Referral Referred to [facility] Med P.C.: No
[2019-03-30] MEDS: oxyCODONE HCL 5 MG TABLET PO PRN ×2 (14:01→20:21)
[2019-03-30 14:29] LABS: BASO % 0.3 % (0-2.0); EOS % 0.5 % (0-4.5); HEMOGLOBIN 11.5 GM/dL (11.7-16.9); LYMPH % 7.8 % (8-40); MCH 30.4 pg (25.7-33.7); MCHC 33.7 g/dl (32.0-35.9); MEAN CELL VOLUME 90.3 fl (80-96); MEAN PLT VOLUME 7.7 fl (7.5-11.1); MONO % 7.9 % (3.8-10.2); NEUT % 83.5 % (42.8-82.8); PLATELET COUNT 333 K/MM3 (134-434); RBC 3.77 M/mm3 (4.00-5.60); RDW 13.1 % (11.9-15.9); WHITE BLOOD COUNT 14.3 K/mm3 (4.0-10.0)
[2019-03-30 14:48] LABS: ALBUMIN 1.9 g/dl (3.4-5.0); BILIRUBIN,TOTAL 0.4 mg/dL (0.2-1); BLOOD UREA NITROGEN 4.6 mg/dL (7-18); CALCIUM 7.9 mg/dL (8.5-10.1); CREATININE 0.6 mg/dL (0.55-1.3); MAGNESIUM 1.8 mg/dL (1.8-2.4); POTASSIUM 4.7 mmol/L (3.5-5.1); TOT PROT 5.4 g/dl (6.4-8.2)
[2019-03-30 16:12] LABS: PLATELET ESTIMATE ADEQUATE
--- NOTE | 2019-03-30 16:26 | PN ---
Progress Note (short form) - Note Progress Note: Attending Surgeon No c/o; tolerating diet VSS AF abdo-soft; non tender; purulent drainage persists frm the IRD WBC decreasing; cultures noted IMP: perforated appendicitis w/# intrabdominal abscesses PLAN: Continue present tx; repeat imaging this week. Jean-Paul Ramirez MD FACS
[2019-03-31] MEDS ORDERED: DEXTROSE 5%-WATER 100 ML IVPB ONE ×3 (00:42→16:37)
[2019-03-31] MEDS ORDERED: PIPERACILLIN/TAZOBACTAM 4.5 GM VIAL IVPB ONE ×3 (00:42→16:37)
[2019-03-31] MEDS: PIPERACILLIN/TAZOB 4.5 GM 4.5 GM in DEXTROSE 5%-WATER 100 ML IVPB SCH ×3 (01:06→17:31)
[2019-03-31] MEDS ORDERED: ZOLPIDEM TARTRATE 5 MG TABLET PO ONE (01:29)
[2019-03-31] MEDS: oxyCODONE HCL 5 MG TABLET PO PRN ×4 (02:47→22:24)
[2019-03-31 08:36] LABS: BASO % 0.3 % (0-2.0); EOS % 0.9 % (0-4.5); HEMATOCRIT 32.4 % (35.4-49); HEMOGLOBIN 10.9 GM/dL (11.7-16.9); LYMPH % 12.8 % (8-40); MCH 30.4 pg (25.7-33.7); MCHC 33.7 g/dl (32.0-35.9); MEAN CELL VOLUME 90.2 fl (80-96); MEAN PLT VOLUME 7.7 fl (7.5-11.1); MONO % 9.6 % (3.8-10.2); NEUT % 76.4 % (42.8-82.8); PLATELET COUNT 308 K/MM3 (134-434); RBC 3.59 M/mm3 (4.00-5.60); RDW 12.9 % (11.9-15.9)
--- NOTE | 2019-03-31 08:46 | PN ---
Progress Note (short form) - Note Progress Note: GENERAL SURGERY 38 yo male admitted with perforated appendicitis w/# intrabdominal abscesses. IR placed drain into largest collection. Patient is alert. Ambulating in room/floor unassisted. Feels much better compared to admit date. Leukocytosis is trending down. Pain managed well. Denies n/v/f/c, CP, palpitations, SOB or SOTO. AVSS. Afebrile. WBC TREND 03/27/19 03/28/19 03/29/19 03/30/19 03/31/19 11:30 12:20 12:15 13:45 07:55 WBC 24.9 H 24.3 H 20.1 H 14.3 13.0 DRAIN TREND 03/28/19 03/29/19 03/29/19 03/30/19 03/31/19 17:54 05:39 15:00 04:40 06:23 Drain 20 10 15 30 20 Gen: nad ABD: soft. mild rlq ttp. no rebound, guarding or rigidity. Drain as above. Problem List - Problems (1) Acute appendicitis with generalized peritonitis and abscess Assessment/Plan: ID to decide which ABX (usp PO vs. PICC) Will need interval appendectomy as out-patient Repeat CT scan tomorrow as comparative study Cont Medical management Above discussed with Dr. leavitt and agrees. Code(s): K35.21 - ACUTE APPENDICITIS WITH GEN PERITONITIS, WITH ABSCESS
[2019-03-31 09:08] LABS: ALBUMIN 1.8 g/dl (3.4-5.0); BILIRUBIN,TOTAL 0.3 mg/dL (0.2-1); BLOOD UREA NITROGEN 4.4 mg/dL (7-18); CALCIUM 7.8 mg/dL (8.5-10.1); CREATININE 0.7 mg/dL (0.55-1.3); MAGNESIUM 1.8 mg/dL (1.8-2.4); TOT PROT 5.2 g/dl (6.4-8.2)
[2019-03-31] MEDS: HEPARIN NA (PORCINE) 5,000 UNITS/ML 1ML VIAL SQ SCH ×2 (09:31→21:22)
[2019-03-31] MEDS: DOCUSATE SODIUM 100 MG CAPSULE (FP) PO SCH ×2 (09:31→21:22)
[2019-03-31 11:37] LABS: ANISOCYTOSIS 0; MACROCYTOSIS 0; PLATELET ESTIMATE NORMAL
--- NOTE | 2019-03-31 12:43 | PN ---
Physical Exam: SUBJECTIVE: Patient seen and examined at the bedside. denies pain or shortness of breath. OBJECTIVE: Patient is a 38 year old male with no significant past medical history who presents to the Ed for abdominal pain around his umbilicus for apx 2-3 weeks. He was found to have an acute, ruptured appendicitis with multiple lower abdominal and pelvic fluid collections suspicious for abscess. Patient currently on Zosyn per ID. TOBY drain to gravity with scant ant of purulent drainage, but continues to have output. imaging: abd pelvis/ct 03/27/2019: findings consistent with acute ruptured appendicitis with multiple lower abdominal and pelvic fluid collections suspicious for abscesses. Vital Signs Period Temp Pulse Resp BP Sys/Thomas Pulse Ox Last 24 Hr 98.6 F-100 F 90-104 18-18 117-127/53-74 96 GENERAL: The patient is awake, alert, and fully oriented, in no acute distress. HEAD: Normal with no signs of trauma. EYES: PERRL, extraocular movements intact, sclera anicteric, conjunctiva clear. No ptosis. ENT: Ears normal, nares patent, oropharynx clear without exudates, moist mucous membranes. NECK: Trachea midline, full range of motion, supple. LUNGS: Breath sounds equal, clear to auscultation bilaterally, no wheezes, no crackles, no accessory muscle use. HEART: Regular rate and rhythm, S1, S2 without murmur, rub or gallop. ABDOMEN: right lower quad pain/tenderness, drain with minimal output. EXTREMITIES: 2+ pulses, warm, well-perfused, no edema. NEUROLOGICAL: Normal speech, gait steady Laboratory Results - last 24 hr 03/30/19 03/30/19 03/31/19 13:45 13:45 07:55 WBC 14.3 H 13.0 H RBC 3.77 L 3.59 L Hgb 11.5 L 10.9 L Hct 34.0 L 32.4 L MCV 90.3 90.2 MCH 30.4 30.4 MCHC 33.7 33.7 RDW 13.1 12.9 Plt Count 333 308 MPV 7.7 7.7 Absolute Neuts (auto) 12.0 H 9.9 H Neutrophils % 83.5 H 76.4 Neutrophils % (Manual) 68.0 D 65.0 Band Neutrophils % 7.0 0.0 Lymphocytes % 7.8 L 12.8 D Lymphocytes % (Manual) 10.0 D 16.0 D Monocytes % 7.9 9.6 Monocytes % (Manual) 7 D 12 H Eosinophils % 0.5 0.9 Eosinophils % (Manual) 0.0 2.0 D Basophils % 0.3 0.3 Basophils % (Manual) 0.0 0.0 Myelocytes % (Man) 4 H D 3 H D Promyelocytes % (Man) 0 D Blast Cells % (Manual) 0 Nucleated RBC % 0 0 Metamyelocytes 2 D 0 D Hypochromia 0 Platelet Estimate Adequate Normal Polychromasia 0 Poikilocytosis 0 Anisocytosis 0 Microcytosis 0 Macrocytosis 0 Sodium 138 Potassium 4.7 Chloride 102 Carbon Dioxide 32 Anion Gap 4 L BUN 4.6 L Creatinine 0.6 Est GFR (CKD-EPI)AfAm 148.87 Est GFR (CKD-EPI)NonAf 128.44 Random Glucose 91 Calcium 7.9 L Magnesium 1.8 Total Bilirubin 0.4 AST 18 ALT 23 Alkaline Phosphatase 45 Total Protein 5.4 L Albumin 1.9 L 03/31/19 07:55 WBC RBC Hgb Hct MCV MCH MCHC RDW Plt Count MPV Absolute Neuts (auto) Neutrophils % Neutrophils % (Manual) Band Neutrophils % Lymphocytes % Lymphocytes % (Manual) Monocytes % Monocytes % (Manual) Eosinophils % Eosinophils % (Manual) Basophils % Basophils % (Manual) Myelocytes % (Man) Promyelocytes % (Man) Blast Cells % (Manual) Nucleated RBC % Metamyelocytes Hypochromia Platelet Estimate Polychromasia Poikilocytosis Anisocytosis Microcytosis Macrocytosis Sodium 137 Potassium 4.0 Chloride 102 Carbon Dioxide 30 Anion Gap 5 L BUN 4.4 L Creatinine 0.7 Est GFR (CKD-EPI)AfAm 139.73 Est GFR (CKD-EPI)NonAf 120.56 Random Glucose 87 Calcium 7.8 L Magnesium 1.8 Total Bilirubin 0.3 AST 27 ALT 28 Alkaline Phosphatase 41 L Total Protein 5.2 L Albumin 1.8 L Active Medications Generic Name Dose Route Start Last Admin Trade Name Freq PRN Reason Stop Dose Admin Docusate Sodium 100 mg 03/28/19 22:00 03/31/19 09:31 Colace - PO 100 mg BID KENNETH Administration Heparin Sodium (Porcine) 5,000 unit 03/28/19 22:00 03/31/19 09:31 Heparin - SQ 5,000 unit BID KENNETH Administration Piperacillin Sod/Tazobactam 100 mls @ 200 mls/hr 03/26/19 18:00 03/31/19 09: 30 Sod 4.5 gm/ Dextrose IVPB 200 mls/hr Q8H-IV KENNETH Administration Protocol Non-Formulary Medication 50 mg 03/29/19 10:00 Lisdexamfetamine Dimesylate [Vyvanse] PO DAILY KENNETH Oxycodone HCl 5 mg 03/30/19 13:01 03/31/19 08:39 Roxicodone - PO 5 mg Q6H PRN Administration PAIN LEVEL 7 - 10 ASSESSMENT/PLAN: Problem List - Problems (1) Acute appendicitis Assessment/Plan: acute ruptured appendicitis with multiple lower abdominal and pelvic fluid collections suspicious for abscesses. ID on board, patient currently on Zosyn. Length of antibiotic therapy to be determined by ID. WBC trending down to 13 Patient ambulatory, denies any other symptoms. some pain on drain site, but tolerable diet advanced to full liquid for a repeat ct scan tomorrow. per surgery, may need interval appendectomy as an outpatient. Code(s): K35.80 - UNSPECIFIED ACUTE APPENDICITIS Qualifiers: Acute appendicitis type: with localized peritonitis Appendicitis gangrene presence: without gangrene Appendicitis perforation presence: with perforation Appendicitis abscess presence: with abscess Qualified Code(s): K35.33 - Acute appendicitis with perforation and localized peritonitis, with abscess (2) Acute appendicitis with generalized peritonitis and abscess Assessment/Plan: monitor drain output Code(s): K35.21 - ACUTE APPENDICITIS WITH GEN PERITONITIS, WITH ABSCESS (3) Prophylactic measure Assessment/Plan: fen full liquid heparin bid monitor electrolytes incentive spriometer full code Code(s): Z29.9 - ENCOUNTER FOR PROPHYLACTIC MEASURES, UNSPECIFIED Visit type - Emergency Visit Emergency Visit: Yes ED Registration Date: 03/26/19 Care time: The patient presented to the Emergency Department on the above date and was hospitalized for further evaluation of their emergent condition. - New Patient This patient is new to me today: No - Critical Care Critical Care patient: No - Discharge Referral Referred to [facility] Med P.C.: No
--- NOTE | 2019-03-31 16:00 | PN ---
Progress Note, Physician - Current Medication List Current Medications: Active Medications Docusate Sodium (Colace -) 100 mg PO BID [facility] Last Admin: 03/31/19 09:31 Dose: 100 mg Heparin Sodium (Porcine) (Heparin -) 5,000 unit SQ BID [facility] Last Admin: 03/31/19 09:31 Dose: 5,000 unit Piperacillin Sod/Tazobactam (Sod 4.5 gm/ Dextrose) 100 mls @ 200 mls/hr IVPB Q8H-IV KENNETH; Protocol Last Admin: 03/31/19 09:30 Dose: 200 mls/hr Non-Formulary Medication (Lisdexamfetamine Dimesylate [Vyvanse]) 50 mg PO DAILY [facility] Oxycodone HCl (Roxicodone -) 5 mg PO Q6H PRN PRN Reason: PAIN LEVEL 7 - 10 Last Admin: 03/31/19 08:39 Dose: 5 mg Zolpidem Tartrate (Ambien -) 5 mg PO HS PRN PRN Reason: INSOMNIA - Objective Vital Signs: Vital Signs Temperature 98.5 F 03/31/19 13:46 Pulse Rate 102 H 03/31/19 13:46 Respiratory Rate 18 03/31/19 13:46 Blood Pressure 124/74 03/31/19 13:46 O2 Sat by Pulse Oximetry (%) 97 03/31/19 09:00 Labs: CBC, BMP 03/31/19 07:55 03/31/19 07:55 INR, PTT INR 1.23 (0.83-1.09) H 03/26/19 20:10
[2019-03-31] MEDS: ZOLPIDEM TARTRATE 5 MG TABLET PO PRN (22:24)
[2019-04-01] MEDS ORDERED: PIPERACILLIN/TAZOBACTAM 4.5 GM VIAL IVPB ONE ×2 (00:37→11:39)
[2019-04-01] MEDS ORDERED: DEXTROSE 5%-WATER 100 ML IVPB ONE ×2 (00:37→11:39)
[2019-04-01] MEDS: PIPERACILLIN/TAZOB 4.5 GM 4.5 GM in DEXTROSE 5%-WATER 100 ML IVPB SCH ×3 (01:29→20:22)
[2019-04-01] MEDS: oxyCODONE HCL 5 MG TABLET PO PRN ×3 (04:16→22:38)
[2019-04-01] MEDS ORDERED: oxyCODONE HCL 5 MG TABLET PO ONE (06:35)
[2019-04-01] MEDS ORDERED: SODIUM CHLORIDE 1,000 ML IV STA (07:59)
--- NOTE | 2019-04-01 08:05 | RAPID ---
Physical Examination Vital Signs: Vital Signs Temperature 98.9 F 03/31/19 20:33 Pulse Rate 105 H 03/31/19 20:33 Respiratory Rate 18 03/31/19 20:33 Blood Pressure 125/68 03/31/19 20:33 O2 Sat by Pulse Oximetry (%) 97 03/31/19 20:43 Labs: CBC, BMP 03/31/19 07:55 03/31/19 07:55 Rapid Response - Rapid Response Assessment: Rapid response called overhead. Rapid team to bed bedside. Vitals signs on arrival hr 174bpm BP 95/64 O2 sat 97 Patient was complaining of pleuritic type chest pain. Endorsed shortness of breath and cough. PE: General: lying in bed in mild acute distress. Diaphoretic. Cardiac: tachycardic, no murmurs Lungs: decreased breath sounds at the bases Neuro: moving all limbs spontaneously Repeat vitals: HR 154 BP 99/66 Outcome: Assessment: Supraventricular tachycardia. No history of cardiac conditions. Differential of: Volume depletion in the setting of sepsis vs PE in hypercoaguable state Ordered: EKG Troponin lactic acid Addition of chest CTA to rule out PE as patient having abd/pelvis CT today 1L NS bolus Recommendations/Interventions: Plan: EKG noting supraventcular tachycardia at rate 169, no noted ST segment changes. 1L NS bolus administered NC on patient at 2L Vagal maneuver attempted with no success. Monitor placed on patient. Transferred to telemetry. Primary notified and at the bedside.
--- NOTE | 2019-04-01 08:08 | PN ---
Physical Exam: SUBJECTIVE: Patient seen/examined. patient on 715b, rapid response called overhead this morning as patient was having elevated heart rate in the 170s, with a systolic in the 80s and became diaphoretic after using the bathroom and having a large bowel movement. patient awake and alert, and reported chest tightness that radiates to the right side of his back. He reports palpitations OBJECTIVE: rapid response called rapid response team at bedside on arrival, on arrival bp 99/64, afebrile, 02 sat 97 on 2 liters. heart rate 174/regular mana drain scant amt of sero sang drain stat ekg shows SVT 170shr carotid massage attempted by resident I called and spoke to cardiolotist, Dr. Holguin who met us at [address] bedside. --------- adenosine 6mg pushed on 4 west at 843 a.m. by receptionist telephone operator, rhythm remained SVT 163 on zoll monitor per advertising photographer give another dose of adenosine 12mg one time (given at 8:48am) , then start on stat dose of cardizem 30mg now and q 6 after adenosine 12mg pushed on 4 west at 848 a.m. by receptionist telephone operator, rhythm broke to ST 105s. echo now, repeat ekg now patient for CTA to rule out PE monitor on tele. mentation remained at baseline. bgm 94, utox pending --------- Patient is a 38 year old male with a significant past medical history of ADHD ( has been off his medications for weeks per patient) who presented to the ED for abdominal pain and found to have a ruptured appendix. Currently he is on Zosyn , and a repeat CT ordered for today. Hospitalization complicated when patient developed SVT, became diaphoretic and hypotensive. stat labs ordered and pending. patient transported to [facility]. Vital Signs Period Temp Pulse Resp BP Sys/Thomas Pulse Ox Last 24 Hr 98.5 F-99.6 F 102-110 18-18 123-125/65-74 97-97 GENERAL: The patient is awake, alert, in respiratory distress with accessory muscle use HEAD: Normal with no signs of trauma. EYES: PERRL, extraocular movements intact ENT: Ears normal, nares patent, oropharynx clear without exudates, moist mucous membranes. NECK: + jvd LUNGS: Breath sounds equal, clear to auscultation bilaterally, no wheezes HEART: SVT 170s on portable zoll monitor ABDOMEN: soft, non tender, non distended, right mnaa drain, scant amt of sero sang drainage EXTREMITIES: trace edema bilaterally NEUROLOGICAL: awake, alert, mentation at baseline Laboratory Results - last 24 hr 03/31/19 03/31/19 04/01/19 07:55 07:55 07:52 WBC 13.0 H RBC 3.59 L Hgb 10.9 L Hct 32.4 L MCV 90.2 MCH 30.4 MCHC 33.7 RDW 12.9 Plt Count 308 MPV 7.7 Absolute Neuts (auto) 9.9 H Neutrophils % 76.4 Neutrophils % (Manual) 65.0 Band Neutrophils % 0.0 Lymphocytes % 12.8 D Lymphocytes % (Manual) 16.0 D Monocytes % 9.6 Monocytes % (Manual) 12 H Eosinophils % 0.9 Eosinophils % (Manual) 2.0 D Basophils % 0.3 Basophils % (Manual) 0.0 Myelocytes % (Man) 3 H D Promyelocytes % (Man) 0 D Blast Cells % (Manual) 0 Nucleated RBC % 0 Metamyelocytes 0 D Hypochromia 0 Platelet Estimate Normal Polychromasia 0 Poikilocytosis 0 Anisocytosis 0 Microcytosis 0 Macrocytosis 0 Sodium 137 Potassium 4.0 Chloride 102 Carbon Dioxide 30 Anion Gap 5 L BUN 4.4 L Creatinine 0.7 Est GFR (CKD-EPI)AfAm 139.73 Est GFR (CKD-EPI)NonAf 120.56 POC Glucometer 90 Random Glucose 87 Calcium 7.8 L Magnesium 1.8 Total Bilirubin 0.3 AST 27 ALT 28 Alkaline Phosphatase 41 L Total Protein 5.2 L Albumin 1.8 L Active Medications Generic Name Dose Route Start Last Admin Trade Name Freq PRN Reason Stop Dose Admin Docusate Sodium 100 mg 03/28/19 22:00 03/31/19 21:22 Colace - PO 100 mg BID KENNETH Administration Heparin Sodium (Porcine) 5,000 unit 03/28/19 22:00 03/31/19 21:22 Heparin - SQ 5,000 unit BID KENNETH Administration Piperacillin Sod/Tazobactam 100 mls @ 200 mls/hr 03/26/19 18:00 04/01/19 01: 29 Sod 4.5 gm/ Dextrose IVPB 200 mls/hr Q8H-IV KENNETH Administration Protocol Sodium Chloride 1,000 mls @ 1,000 mls/hr 04/01/19 07:59 Normal Saline - IV 04/01/19 08:58 ASDIR STA Oxycodone HCl 5 mg 03/30/19 13:01 04/01/19 04:16 Roxicodone - PO 5 mg Q6H PRN Administration PAIN LEVEL 7 - 10 Zolpidem Tartrate 5 mg 03/31/19 22:00 03/31/19 22:24 Ambien - PO 5 mg HS PRN Administration INSOMNIA ASSESSMENT/PLAN: Problem List - Problems (1) SVT (supraventricular tachycardia) Assessment/Plan: SVT on ekg, and zoll, + JVD distention given 1 liter bolus adenosine 6mg push by analytical consultant, rhythm remained unchanged, then given adenosine 12mg under direction of cardiology at 8:48a.m., rhythm now ST 105. Monitor on tele, troponins pending, cpk pending will need CTA stat to rule out PE other labs pending (lactic,cbc,cmp,mag) daily ekgs cardiology following Code(s): I47.1 - SUPRAVENTRICULAR TACHYCARDIA (2) Chest pain Assessment/Plan: chest tightness this am. rule out ACS trops pending on school bus monitor ASA 81mg Code(s): R07.9 - CHEST PAIN, UNSPECIFIED (3) Acute appendicitis Assessment/Plan: acute ruptured appendicitis with multiple lower abdominal and pelvic fluid collections suspicious for abscesses. ID on board, patient currently on Zosyn. Length of antibiotic therapy to be determined by ID. WBC trending down to 13 on 03/31/2019, todays labs pending. for a repeat ct scan today to further evaluate per surgery, may need interval appendectomy as an outpatient. Code(s): K35.80 - UNSPECIFIED ACUTE APPENDICITIS Qualifiers: Acute appendicitis type: with localized peritonitis Appendicitis gangrene presence: without gangrene Appendicitis perforation presence: with perforation Appendicitis abscess presence: with abscess Qualified Code(s): K35.33 - Acute appendicitis with perforation and localized peritonitis, with abscess (4) Acute appendicitis with generalized peritonitis and abscess Assessment/Plan: monitor drain output Code(s): K35.21 - ACUTE APPENDICITIS WITH GEN PERITONITIS, WITH ABSCESS (5) Perforated appendicitis Code(s): K35.32 - ACUTE APPENDICITIS WITH PERF AND LOC PERITONITIS, W/O ABSCS (6) Prophylactic measure Assessment/Plan: fen full liquid heparin bid monitor electrolytes incentive spriometer full code Code(s): Z29.9 - ENCOUNTER FOR PROPHYLACTIC MEASURES, UNSPECIFIED Visit type - Emergency Visit Emergency Visit: Yes ED Registration Date: 03/26/19 Care time: The patient presented to the Emergency Department on the above date and was hospitalized for further evaluation of their emergent condition. - New Patient This patient is new to me today: No - Critical Care Critical Care patient: No - Discharge Referral Referred to [facility] Med P.C.: No
[2019-04-01] MEDS ORDERED: ADENOSINE 6 MG/2 ML VIAL IVPUSH ONE ×2 (08:31→09:06)
[2019-04-01] MEDS ORDERED: dilTIAZem HCL 30 MG TABLET PO ONE (09:00)
--- NOTE | 2019-04-01 09:41 | CON.CARD ---
Consult Consult Specialty:: cardiology Reason for Consultation:: palpitatiopns; SVT - History of Present Illness History of Present Illness: 38-year-old male with no significant past medical or surgical history, daily 2 beer per night drinker, active smoker, presents with 5 days of GI complaints of nausea/vomiting/diarrhea/abdominal pain. No recent travel or sick contacts or antibiotics or history of recurring GI infections, presents with nonbloody vomiting and diarrhea that predominantly resolved about 2 days ago after lasting for 3 days, presents now with a persistent generalized abdominal pain that began 3 days ago most severely, constant for 2 days with some relief last night, then recurrence this morning. No h/o gallstones or pancreatitis. APt was found to have a perforated appendix, which was operated on. This morning, he has been feeling chest discomfort and paolpitrations; he was found to be in SVT. No prior cardiac hx. Pt works out regulalry; no chest pain, dyspnea, or palptations. - History Source History Provided By: Patient, Medical Record Limitations to Obtaining History: No Limitations - Past Medical History Pulmonary: No: Asthma - Alcohol/Substance Use Hx Alcohol Use: Yes - Smoking History Smoking history: Current every day smoker Have you smoked in the past 12 months: Yes Aproximately how many cigarettes per day: 6 Home Medications - Allergies Allergies/Adverse Reactions: Allergies Allergy/AdvReac Type Severity Reaction Status Date / Time No Known Allergies Allergy Verified 03/26/19 07:20 - Home Medications Home Medications: Ambulatory Orders Lisdexamfetamine Dimesylate [Vyvanse] 50 mg PO DAILY 03/27/19 Family Medical History Family History: Denies Review of Systems - Review of Systems Constitutional: reports: No Symptoms Eyes: reports: No Symptoms HENT: reports: No Symptoms Neck: reports: No Symptoms Cardiovascular: reports: No Symptoms Respiratory: reports: No Symptoms Gastrointestinal: reports: No Symptoms Genitourinary: reports: No Symptoms Breasts: reports: No Symptoms Reported Musculoskeletal: reports: No Symptoms Integumentary: reports: No Symptoms Neurological: reports: No Symptoms Endocrine: reports: No Symptoms Hematology/Lymphatic: reports: No Symptoms Psychiatric: reports: No Symptoms - Risk Factors Known Risk Factors: Yes: Age, Gender, Smoking Vital Signs: Vital Signs Temperature 98.8 F 04/01/19 08:10 Pulse Rate 163 H 04/01/19 08:10 Respiratory Rate 04/01/19 08:10 Blood Pressure 99/66 04/01/19 08:10 O2 Sat by Pulse Oximetry (%) 97 04/01/19 07:50 Constitutional: Yes: Calm Eyes: Yes: WNL HENT: Yes: WNL Neck: Yes: WNL Respiratory: Yes: WNL Gastrointestinal: Yes: Other (dressing dry (s/p appendiceal surgery)) Renal/: Yes: WNL Cardiovascular: Yes: Tachycardia, Other Carotid Bruit: No PMI: Non-Displaced Heart Sounds: Yes: S1 (no discerible) Musculoskeletal: Yes: WNL Extremities: Yes: WNL Edema: No Peripheral Pulses WNL: Yes Integumentary: Yes: Other Neurological: Yes: WNL ...Motor Strength: WNL Psychiatric: Yes: WNL - Other Data Labs, Other Data: CBC, BMP 03/31/19 07:55 03/31/19 07:55 INR, PTT INR 1.23 (0.83-1.09) H 03/26/19 20:10 Abnormal Lab Results 04/01/19 04/01/19 04/01/19 10:00 12:08 17:30 WBC 14.1 H RBC 3.60 L Hgb 10.9 L Hct 32.5 L Absolute Neuts (auto) 11.0 H Monocytes % Basophils % (Manual) PT with INR 16.10 H INR 1.36 H Anion Gap BUN Calcium Magnesium AST Alkaline Phosphatase Total Protein Albumin Opiates Screen Positive A* 04/01/19 04/02/19 04/02/19 17:30 05:25 05:25 WBC RBC 3.48 L Hgb 10.9 L Hct 31.1 L Absolute Neuts (auto) Monocytes % 11.7 H Basophils % (Manual) 2.1 H D PT with INR INR Anion Gap 4 L 4 L BUN 6.0 L Calcium 7.9 L 7.8 L Magnesium 1.7 L AST 39 H Alkaline Phosphatase 43 L 40 L Total Protein 5.7 L 5.4 L Albumin 2.0 L 1.9 L Opiates Screen Imaging - Results Chest X-ray: Image Reviewed EKG: Image Reviewed (SVT) Problem List - Problems (1) SVT (supraventricular tachycardia) Assessment/Plan: Pt converted from SVT to NSR after 12 mg adenosine 12 mg IVP. Start diltiazem 30 mg PO now and q6h; if tolerated, will then change to long- acting CD once daily 120 mg. ECHO for LVEF, chamber sizes, valve status. Pain management. Code(s): I47.1 - SUPRAVENTRICULAR TACHYCARDIA (2) Perforated appendicitis Code(s): K35.32 - ACUTE APPENDICITIS WITH PERF AND LOC PERITONITIS, W/O ABSCS
[2019-04-01 09:55] LABS: BASO % 0.4 % (0-2.0); EOS % 0.3 % (0-4.5); HEMATOCRIT 34.2 % (35.4-49); HEMOGLOBIN 11.6 GM/dL (11.7-16.9); LYMPH % 8.8 % (8-40); MCH 30.3 pg (25.7-33.7); MCHC 33.9 g/dl (32.0-35.9); MEAN CELL VOLUME 89.4 fl (80-96); MONO % 9.2 % (3.8-10.2); NEUT % 81.3 % (42.8-82.8); PLATELET COUNT 361 K/MM3 (134-434); RBC 3.82 M/mm3 (4.00-5.60); WHITE BLOOD COUNT 17.1 K/mm3 (4.0-10.0)
[2019-04-01 10:36] LABS: ALK PHOS 44 U/L (45-117); ANION GAP 6 MMOL/L (8-16); BILIRUBIN,TOTAL 0.5 mg/dL (0.2-1); CHLORIDE 102 mmol/L (98-107); CO2 31 mmol/L (21-32); CREATININE 0.7 mg/dL (0.55-1.3); GLUCOSE,RANDOM 85 mg/dL (74-106); MAGNESIUM 1.8 mg/dL (1.8-2.4); POTASSIUM 4.9 mmol/L (3.5-5.1); SGOT/AST 28 U/L (15-37); SGPT/ALT 36 U/L (13-61); SODIUM 139 mmol/L (136-145); TOT PROT 5.6 g/dl (6.4-8.2)
--- NOTE | 2019-04-01 10:41 | EKG ---
Test Reason : Blood Pressure : / mmHG Vent. Rate : 167 BPM Atrial Rate : 170 BPM P-R Int : 000 ms QRS Dur : 092 ms QT Int : 264 ms P-R-T Axes : 000 018 006 degrees QTc Int : 440 ms SUPRAVENTRICULAR TACHYCARDIA WITH OCCASIONAL PREMATURE VENTRICULAR COMPLEXES OTHERWISE NORMAL ECG Confirmed by Dion Coreas MD ([id number]) on 04/01/2019 10:40:49 AM Referred By: Confirmed By:Dion Coreas MD
[2019-04-01] MEDS ORDERED: dilTIAZem HCL 125 MG/25 ML - 25 ML VIAL ONE (10:49)
[2019-04-01] MEDS ORDERED: dilTIAZem HCL 25 MG/5 ML - 5 ML VIAL IVPUSH ONE (10:54)
--- NOTE | 2019-04-01 10:54 | RAPID ---
Physical Examination Vital Signs: Vital Signs Temperature 98.8 F 04/01/19 08:10 Pulse Rate 163 H 04/01/19 08:10 Respiratory Rate 20 04/01/19 08:10 Blood Pressure 99/66 04/01/19 08:10 O2 Sat by Pulse Oximetry (%) 97 04/01/19 07:50 Labs: CBC, BMP 04/01/19 08:31 04/01/19 08:31 Rapid Response - Rapid Response Assessment: rapid response called overhead. ACCOUNTS RECEIVABLE REPRESENTATIVE responded immediately. Pt found to be in SVT on monitor, 116/68, 101, 98% no CP, tachypneic to 30s, diaphoretic +S1S2, tachycardic, no mrg breath sounds clear. decreased at bases. no wrr pending CT chest, abd, pelvis 1 L IVF bolus call made to Dr. Romano will give cardizem 5mg IVP rpt vitals: 103/69 105 92%
[2019-04-01] MEDS: DOCUSATE SODIUM 100 MG CAPSULE (FP) PO SCH ×2 (11:43→22:09)
[2019-04-01] MEDS: PANTOPRAZOLE 40 MG TABLET PO SCH (11:43)
--- NOTE | 2019-04-01 11:43 | HOSP ---
Subjective - Review of Symptoms Events since last encounter: rapid response called while patient was about to have a ct scan of abd pelvis as well as chest per verbal report from primary RN who accompanied patient, heart rate elevated in the 200s, patient became diophretic and hypotensive 100/60s waiting for CT scan, no contrast yet given MEDICAL BILL PROCESSOR at ct scan. vitals 100/60, heart rate 101, called made to dr sullivan who recommended push of 5mg cardizem. patient had CT scan and a NRB applied as patient began to have low oxygen sats between 90-90% on 4 liters IVF 1 liter bolus given ICU called by Dr. Nye during CT scan, accepted to ICU After CT scan results, called IR, surgery and ID patient taken to IR and 2 additional drains placed in IR repeat labs pending patient awake, alert and denies chest pain. Physical Examination Vital Signs: Vital Signs Temperature 98.8 F 04/01/19 08:10 Pulse Rate 163 H 04/01/19 08:10 Respiratory Rate 20 04/01/19 08:10 Blood Pressure 99/66 04/01/19 08:10 O2 Sat by Pulse Oximetry (%) 97 04/01/19 07:50 Labs: CBC, BMP 04/01/19 08:31 04/01/19 08:31
[2019-04-01] MEDS: ASPIRIN COATED 81 MG TABLET.EC PO SCH (11:44)
[2019-04-01] MEDS: dilTIAZem HCL 30 MG TABLET PO SCH ×2 (11:44→18:36)
[2019-04-01] MEDS: HEPARIN NA (PORCINE) 5,000 UNITS/ML 1ML VIAL SQ SCH ×3 (11:44→22:10)
--- NOTE | 2019-04-01 12:00 | ECHO ---
Version: 1 Name: ELIANA FORTE Exam: Adult Echocardiogram Study Date: 04/01/2019, 9:11 AM Age: 38 Years MMode/2D Measurements & Calculations IVSd: 1.18 cm LVIDs: 3.4 cm LVIDd: 4.8 cm LVPWd: 1.04 cm LAV (MOD-bp): 61.0 ml ACS: 2.21 cm Ao root diam: 3.6 cm LVOT diam: 2.50 cm LA dimension: 3.4 cm Doppler Measurements & Calculations MV E max rudy: 70.1 cm/sec Med E/e': 10.4 MV A max rudy: 66.6 cm/sec Med Peak E' Rudy: 6.7 cm/sec MV E/A: 1.05 Lat E/e': 9.7 Lat Peak E' Ruyd: 7.2 cm/sec Ao max P.5 mmHg RANDY(I,D): 4.2 cm Ao mean P.44 mmHg LV V1 mean: 56.8 cm/sec Ao V2 max: 105.9 cm/sec LV V1 mean P.60 mmHg TR max rudy: 228.0 cm/sec TR max P.8 mmHg Procedure A complete two-dimensional transthoracic echocardiogram was performed (2D, M-mode, Doppler and color flow Doppler). The subcostal views were difficult to obtain and are suboptimal in quality. The patient wa s in a tachycardic rhythm during the exam. Left Ventricle The left ventricular size, thickness and function are normal. Ejection Fraction = 65%. E/A reversal consistent with but not diagnostic of poor LV compliance. The left ventricular wall motion is normal . Right Ventricle The right ventricle is normal in size and function. Atria Normal left and right atrial size and function. Mitral Valve The mitral valve is normal in structure and function. There is trace mitral regurgitation. Tricuspid Valve The tricuspid valve is normal in structure and function. There is Trace to mild tricuspid regurgitat ion. Right ventricular systolic pressure is 25 mmhg. Assuming the RA pressure is 5 mmHg. Aortic Valve The aortic valve is normal in structure and function. Pulmonic Valve The pulmonic valve is normal in structure and function. Trace pulmonic valvular regurgitation. Great Vessels The aortic root is normal size. Pericardium/Pleura There is no pericardial effusion. There is no pleural effusion. Summary Statements The patient was in a tachycardic rhythm during the exam. The left ventricular size, thickness and function are normal Ejection Fraction = 65%. The right ventricle is normal in size and function. There is trace mitral regurgitation. There is Trace to mild tricuspid regurgitation. Right ventricular systolic pressure is 25 mmhg. Trace pulmonic valvular regurgitation. MD Dion Coreas 04/01/2019, 11:59 AM Ordering Physician: Lisandro Campuzano Referring Physician: LISANDRO MCGEE Performed By: Teresa Carroll
--- NOTE | 2019-04-01 12:49 | PN ---
Progress Note (short form) - Note Progress Note: Surgery Patient being follow for perforated appendix with IR drain placement seen and examined at bedside. Patient had 2 rapid responses this morning after becoming tachycardic, diaphoretic and complaining of chest pain. The patient was found to be in SVT, cardizem 5mg IVP was given and the patient responded right away. Cardiac enzymes were negative (echo pending) and chest CT was negative for PE, however abdomen CT revealed several persistent collections. The Patient states his abdominal pain continues to improve. He currently denies any CP, SOB, N/V, fever or chills. Vital Signs Temp 98.8 F 04/01/19 08:10 Pulse 163 H 04/01/19 08:10 Resp 20 04/01/19 08:10 BP 99/66 04/01/19 08:10 Pulse Ox 97 04/01/19 07:50 Intake & Output 03/31/19 04/01/19 04/01/19 23:59 11:59 23:59 Intake Total 1800 1000 Output Total 610 Balance 1190 1000 Intake: IVPB 200 Oral 1600 1000 Output: Drainage 10 Right Lower Abdomen 10 Urine 600 Void 600 Other: Voiding Method Toilet Urinal # Unmeasured Voids Void 1 Bowel Movement Yes # Bowel Movements 1 CBC, BMP 04/01/19 08:31 04/01/19 08:31 Troponin, BNP 04/01/19 08:31 Troponin I < 0.02 A&Ox3, NAD Unlabored resp on RA ABD: with no significant changes from previous Surgical team exam. obese and mild TTP throughout with focal TTP over LLQ, some guarding, no masses of lesions , Drain in place in LLQ and draining yellow/clear d/c. drain dressing clean and dry CT Abdomen & pelvis with contrast/ Chest CT No evidence of Pulmonary embolus Findings consistent with acute appendicitis with miltiple appendicolithis, with standing. multiple collections in the pelvis, s/p pigtail catheter insertion. Persistent larger collection in the mid pelvis anteriorly with air pockets. Problem List - Problems (1) Acute appendicitis Assessment/Plan: 38 yo male with acute ruptured appendicitis and persistent collections, with spike in WBC's and rapid response x2 this morning-cardiology following. - ID for recommendations appreciated given the most resent events. - Plan for RPT IR drainage today - OOB and ambulate - Trend WBC - Cont medical management - No surgical intervention at this time. Will need interval appendectomy as out- patient -surgery to folloow Above plan discussed with Dr. Ramirez and agrees. Code(s): K35.80 - UNSPECIFIED ACUTE APPENDICITIS Qualifiers: Acute appendicitis type: with localized peritonitis Appendicitis gangrene presence: without gangrene Appendicitis perforation presence: with perforation Appendicitis abscess presence: with abscess Qualified Code(s): K35.33 - Acute appendicitis with perforation and localized peritonitis, with abscess (2) Acute appendicitis with generalized peritonitis and abscess Code(s): K35.21 - ACUTE APPENDICITIS WITH GEN PERITONITIS, WITH ABSCESS
--- NOTE | 2019-04-01 13:22 | EKG ---
Test Reason : Blood Pressure : / mmHG Vent. Rate : 104 BPM Atrial Rate : 104 BPM P-R Int : 138 ms QRS Dur : 084 ms QT Int : 312 ms P-R-T Axes : 020 025 011 degrees QTc Int : 410 ms SINUS TACHYCARDIA OTHERWISE NORMAL ECG WHEN COMPARED WITH ECG OF 01-APR-2019 07:57, VENT. RATE HAS DECREASED BY 65 BPM Confirmed by MD Yanes Daniel ([id number]) on 04/01/2019 1:22:08 PM Referred By: CORTEZ Confirmed By:Cruzito Yanes MD
[2019-04-01 13:25] LABS: COCAINE, UR NEGATIVE ng/ml (CUTOFF=300); METHADONE, UR NEGATIVE ng/ml (CUTOFF=300); PHENCYCLIDINE,URINE NEGATIVE ng/ml (CUTOFF=25); URINE AMPHETAMINES NEGATIVE ng/ml (CUTOFF=500); URINE BARBITURATES NEGATIVE ng/ml (CUTOFF=200); URINE BENZODIAZEPINES NEGATIVE ng/ml (CUTOFF=200)
[2019-04-01 13:26] LABS: OPIATES, URI POSITIVE ng/ml (CUTOFF=300)
--- NOTE | 2019-04-01 13:44 | CONSULT ---
Consultation: REQUESTING PROVIDER: Dr. Nye CONSULT REQUEST: We have been asked to medically evaluate this patient for worsening sepsis. HISTORY OF PRESENT ILLNESS: Patient is a 63 y/o male with no past medical history who presented to the ED with abdominal pain. Patient was found to have an acute ruptured appendicitis with abscesses. IR placed a drain and patient has been treated with antibiotics. Today the patient woke up at 5 am and felt pain in his right side that moved to his back. At this time he also had a chest tightness. He was found to be in SVT and went back to NSR after adenosine and 1 L NS. A second rapid was called when patient was tachypnic to the 40's. Patient had a CT abdomen and Chest, negative for PE. Patient states he has less pain and does not feel as short of breath. Denies, fevers, chills, chest pain or pressure, nausea, vomiting, or diarrhea. REVIEW OF SYSTEMS: CONSTITUTIONAL: Absent: fever, chills, diaphoresis, generalized weakness, malaise, loss of appetite, weight change HEENT: Absent: rhinorrhea, nasal congestion, throat pain, throat swelling, difficulty swallowing, mouth swelling, ear pain, eye pain, visual changes CARDIOVASCULAR: Absent: chest pain, syncope, palpitations, irregular heart rate, lightheadedness , peripheral edema RESPIRATORY: Absent: cough, shortness of breath, dyspnea with exertion, orthopnea, wheezing, stridor, hemoptysis GASTROINTESTINAL: abdominal pain Absent: abdominal distension, nausea, vomiting, diarrhea, constipation, melena , hematochezia GENITOURINARY: Absent: dysuria, frequency, urgency, hesitancy, hematuria, flank pain, genital pain MUSCULOSKELETAL: Absent: myalgia, arthralgia, joint swelling, back pain, neck pain SKIN: Absent: rash, itching, pallor HEMATOLOGIC/IMMUNOLOGIC: Absent: easy bleeding, easy bruising, lymphadenopathy, frequent infections ENDOCRINE: Absent: unexplained weight gain, unexplained weight loss, heat intolerance, cold intolerance NEUROLOGIC: Absent: headache, focal weakness or paresthesias, dizziness, unsteady gait, seizure, mental status changes, bladder or bowel incontinence PSYCHIATRIC: Absent: anxiety, depression, suicidal or homicidal ideation, hallucinations. PHYSICAL EXAMINATION Vital Signs Temperature 98.2 F 04/01/19 08:35 Pulse Rate 94 H 04/01/19 13:42 Respiratory Rate 38 H 04/01/19 13:42 Blood Pressure 92/50 L 04/01/19 13:42 O2 Sat by Pulse Oximetry (%) 97 04/01/19 13:42 GENERAL: Awake, alert, and fully oriented, in no acute distress. HEAD: Normal with no signs of trauma. EYES: Pupils equal, round and reactive to light, LUNGS: Breath sounds equal, clear to auscultation bilaterally. No wheezes, and no crackles. No accessory muscle use. HEART: tachycardic and regular rhythm, normal S1 and S2 without murmur, rub or gallop. ABDOMEN: tenderness in RLQ, drian in place draining serosanguinous MUSCULOSKELETAL: Normal range of motion at all joints. LOWER EXTREMITIES: 2+ pulses, warm, well-perfused. No calf tenderness. No peripheral edema. SKIN: Warm, dry, normal turgor, no rashes or lesions noted. CBC, BMP 04/01/19 08:31 04/01/19 08:31 Active Medications Aspirin (Ecotrin -) 81 mg PO DAILY [facility] Last Admin: 04/01/19 11:44 Dose: 81 mg Diltiazem HCl (Cardizem -) 30 mg PO Q6HPO [facility] Last Admin: 04/01/19 11:44 Dose: 30 mg Docusate Sodium (Colace -) 100 mg PO BID [facility] Last Admin: 04/01/19 11:43 Dose: 100 mg Heparin Sodium (Porcine) (Heparin -) 5,000 unit SQ TID [facility] Piperacillin Sod/Tazobactam (Sod 4.5 gm/ Dextrose) 100 mls @ 200 mls/hr IVPB Q8H-IV [facility]; Protocol Last Admin: 04/01/19 11:44 Dose: 200 mls/hr Oxycodone HCl (Roxicodone -) 5 mg PO Q6H PRN PRN Reason: PAIN LEVEL 7 - 10 Last Admin: 04/01/19 04:16 Dose: 5 mg Pantoprazole Sodium (Protonix -) 40 mg PO DAILY [facility] Last Admin: 04/01/19 11:43 Dose: 40 mg Zolpidem Tartrate (Ambien -) 5 mg PO HS PRN PRN Reason: INSOMNIA Last Admin: 03/31/19 22:24 Dose: 5 mg ASSESSMENT/PLAN: Patient is a 63 y/o male with no past medical history who is admitted for sepsis 2/2 to acute ruptured appendicitis. #Neuro - A&O x3 #Cardiovascular - tachycardic likely 2/2 to sepsis - continue fluids, monitor closely for signs of hypotension - 1 episode of SVT, received adenosine 6 and adenosine 12 - diltiazem prn and diltiazem 30 q6h po - followed by Dr. Romano #Pulmonary - maintain saturation > 90, continue nasal cannula as needed - Chest CT: no signs of PE, moderate to large right pleural effusion and left small pleural effusion with consolidation and air - consolidation of middle lobe suggestive of PNA #GI - appendicitis with appendicolithis, significant stranding in the right lower quadrant and multiple collection/ abscesses, small collection in the right flank, thickening of small bowel loops - s/p insertion of a pigtail catheter - conservative management with IR and drainage of abscesses, continue antibiotics - followed by Dr. Ramirez, oxy 5 prn for pain #Nephro - stable, continue to monitor creatinine while on nephrotoxic agents - continue adequate fluid resuscitation #ID - followed by Dr. Ellis - continue Zosyn @ 4.75 q8h - monitor closely for signs of septic shock - abscess cx: multiorganisms growing, f/u new abscess cx's - blood cxs pending FEN - full liquid diet - DVT ppx - heparin TID Dispo: We will continue to follow the patient. Thank you for this consultative opportunity. Visit type - Emergency Visit Emergency Visit: Yes ED Registration Date: 03/26/19 Care time: The patient presented to the Emergency Department on the above date and was hospitalized for further evaluation of their emergent condition. - New Patient This patient is new to me today: Yes Date on this admission: 04/02/19 - Critical Care Critical Care patient: Yes Total Critical Care Time (in minutes): 40 Critical Care Statement: The care of this patient involved high complexity decision making to prevent further life threatening deterioration of the patient 's condition and/or to evaluate & treat vital organ system(s) failure or risk of failure. ATTENDING PHYSICIAN STATEMENT I saw and evaluated the patient. I reviewed the resident's note and discussed the case with the resident. I agree with the resident's findings and plan as documented. SUBJECTIVE: OBJECTIVE: ASSESSMENT AND PLAN:
--- NOTE | 2019-04-01 13:45 | PN ---
Progress Note, Physician - Current Medication List Current Medications: Active Medications Aspirin (Ecotrin -) 81 mg PO DAILY [facility] Last Admin: 04/01/19 11:44 Dose: 81 mg Chlorhexidine Gluconate (Hibiclens For Decolonization -) 1 applic TP HS [facility] Diltiazem HCl (Cardizem -) 30 mg PO Q6HPO [facility] Last Admin: 04/01/19 11:44 Dose: 30 mg Docusate Sodium (Colace -) 100 mg PO BID [facility] Last Admin: 04/01/19 11:43 Dose: 100 mg Heparin Sodium (Porcine) (Heparin -) 5,000 unit SQ TID [facility] Piperacillin Sod/Tazobactam (Sod 4.5 gm/ Dextrose) 100 mls @ 200 mls/hr IVPB Q8H-IV [facility]; Protocol Last Admin: 04/01/19 11:44 Dose: 200 mls/hr Mupirocin (Bactroban Ointment (For Decolonization) -) 1 applic NS BID [facility] Stop: 04/06/19 21:59 Oxycodone HCl (Roxicodone -) 5 mg PO Q6H PRN PRN Reason: PAIN LEVEL 7 - 10 Last Admin: 04/01/19 04:16 Dose: 5 mg Pantoprazole Sodium (Protonix -) 40 mg PO DAILY [facility] Last Admin: 04/01/19 11:43 Dose: 40 mg Zolpidem Tartrate (Ambien -) 5 mg PO HS PRN PRN Reason: INSOMNIA Last Admin: 03/31/19 22:24 Dose: 5 mg - Objective Vital Signs: Vital Signs Temperature 98.2 F 04/01/19 08:35 Pulse Rate 94 H 04/01/19 13:42 Respiratory Rate 38 H 04/01/19 13:42 Blood Pressure 92/50 L 04/01/19 13:42 O2 Sat by Pulse Oximetry (%) 97 04/01/19 13:42 Labs: CBC, BMP 04/01/19 08:31 04/01/19 08:31 INR, PTT INR 1.23 (0.83-1.09) H 03/26/19 20:10
[2019-04-01 14:05] LABS: INR 1.36 (0.83-1.09); PROTHROMBIN TIME (PATIENT) 16.1 SEC (9.7-13.0)
[2019-04-01 14:08] LABS: ACTIVATED PTT 29.7 SECONDS (25.2-36.5)
[2019-04-01] MEDS: SODIUM CHLORIDE 1,000 ML IV SCH (15:45)
[2019-04-01 18:03] LABS: BASO % 0.6 % (0-2.0); EOS % 0.8 % (0-4.5); HEMATOCRIT 32.5 % (35.4-49); HEMOGLOBIN 10.9 GM/dL (11.7-16.9); MCH 30.2 pg (25.7-33.7); MCHC 33.5 g/dl (32.0-35.9); MEAN CELL VOLUME 90.1 fl (80-96); MEAN PLT VOLUME 7.8 fl (7.5-11.1); MONO % 9.5 % (3.8-10.2); NEUT % 78.1 % (42.8-82.8); PLATELET COUNT 344 K/MM3 (134-434); RDW 12.7 % (11.9-15.9); WHITE BLOOD COUNT 14.1 K/mm3 (4.0-10.0)
[2019-04-01 18:31] LABS: BILIRUBIN,TOTAL 0.5 mg/dL (0.2-1); BLOOD UREA NITROGEN 7.3 mg/dL (7-18); CALCIUM 7.9 mg/dL (8.5-10.1); CREATININE 0.6 mg/dL (0.55-1.3); MAGNESIUM 1.8 mg/dL (1.8-2.4); POTASSIUM 4.6 mmol/L (3.5-5.1); TOT PROT 5.7 g/dl (6.4-8.2)
[2019-04-01] MEDS ORDERED: CHLORHEXIDINE GLUCONATE 4% CLEANSER FOR DECOLONIZATION TP SCH (22:00)
[2019-04-02] MEDS ORDERED: DEXTROSE 5%-WATER 100 ML IVPB ONE ×3 (00:09→17:12)
[2019-04-02] MEDS ORDERED: PIPERACILLIN/TAZOBACTAM 4.5 GM VIAL IVPB ONE ×3 (00:09→17:12)
[2019-04-02] MEDS: SODIUM CHLORIDE 1,000 ML IV SCH ×3 (00:17→22:18)
[2019-04-02] MEDS: dilTIAZem HCL 30 MG TABLET PO SCH ×3 (00:17→10:59)
[2019-04-02] MEDS ORDERED: ACETAMINOPHEN 1000 MG/100 ML VIAL (NON FORMULARY) IVPB PRN (00:29)
[2019-04-02] MEDS: ZOLPIDEM TARTRATE 5 MG TABLET PO PRN ×2 (00:50→22:18)
[2019-04-02] MEDS: PIPERACILLIN/TAZOB 4.5 GM 4.5 GM in DEXTROSE 5%-WATER 100 ML IVPB SCH ×3 (01:43→17:21)
[2019-04-02] MEDS: MUPIROCIN 2% TOPICAL OINTMENT FOR DECOLONIZATION NS SCH ×2 (03:52→09:14)
[2019-04-02] MEDS: HEPARIN NA (PORCINE) 5,000 UNITS/ML 1ML VIAL SQ SCH ×3 (05:34→22:18)
[2019-04-02] MEDS: oxyCODONE HCL 5 MG TABLET PO PRN ×3 (05:35→22:17)
[2019-04-02 06:24] LABS: BASO % 0.8 % (0-2.0); HEMATOCRIT 31.1 % (35.4-49); HEMOGLOBIN 10.9 GM/dL (11.7-16.9); LYMPH % 15.8 % (8-40); MCH 31.3 pg (25.7-33.7); MCHC 34.9 g/dl (32.0-35.9); MEAN CELL VOLUME 89.5 fl (80-96); MEAN PLT VOLUME 7.8 fl (7.5-11.1); MONO % 11.7 % (3.8-10.2); NEUT % 69.7 % (42.8-82.8); PLATELET COUNT 339 K/MM3 (134-434); RBC 3.48 M/mm3 (4.00-5.60); RDW 12.8 % (11.9-15.9); WHITE BLOOD COUNT 9.4 K/mm3 (4.0-10.0)
[2019-04-02 06:48] LABS: ALBUMIN 1.9 g/dl (3.4-5.0); BILIRUBIN,TOTAL 0.6 mg/dL (0.2-1); CALCIUM 7.8 mg/dL (8.5-10.1); CREATININE 0.7 mg/dL (0.55-1.3); MAGNESIUM 1.7 mg/dL (1.8-2.4); PHOSPHOROUS 3.4 mg/dL (2.5-4.9); POTASSIUM 4.5 mmol/L (3.5-5.1); TOT PROT 5.4 g/dl (6.4-8.2)
[2019-04-02] MEDS ORDERED: MAGNESIUM OXIDE 400 MG TABLET (FP) PO ONE (07:13)
[2019-04-02] MEDS ORDERED: MAGNESIUM SULF 50% (8.12 MEQ/2 ML-1 GM VIAL) IVPB ONE (07:30)
--- NOTE | 2019-04-02 08:50 | PN ---
Progress Note (short form) - Note Progress Note: SURGERY 38yo M h/o perforated appendicitis with abscess formation, s/p IR drain x 3. Pt seen and examined in ICU. Pt was transferred there after having rapid response and episode of SVT. Pt currently states his abd pain has improved. Denies fever, chills, n/v, diarrhea, constipation. Pt WBC trending down Vital Signs Temp 99 F 04/02/19 06:00 Pulse 82 04/02/19 08:00 Resp 20 04/02/19 08:00 BP 113/73 04/02/19 08:00 Pulse Ox 95 04/02/19 00:00 Intake & Output 04/01/19 04/01/19 04/02/19 11:59 23:59 11:59 Intake Total 1000 2410 1060 Output Total 1200 920 Balance 1000 1210 140 Intake: IV 1510 720 Normal Saline - 1,000 ml 500 700 @ 100 mls/hr IV ASDIR KENNETH Rx#:[id number] Normal Saline - 1,000 ml 1000 @ 1000 mls/hr IV ASDIR STA Rx#:[id number] Saline Lock 2 10 s/l 20 IVPB 200 100 Oral 1000 700 240 Output: Drainage 180 70 Left Lower Abdomen 60 35 Right Lower Abdomen 10 Right Upper Abdomen 120 25 Urine 1020 850 Void 1020 850 Other: Voiding Method Urinal Urinal Urinal # Unmeasured Voids Void 1 Bowel Movement No No Body Mass Index (BMI) 30.4 CBC, BMP 04/02/19 05:25 04/02/19 05:25 PE: Gen: A&O x3 Resp: breathing comfortably Abd: soft, nontender, nondistended. Drains in place with serosanguinous drainage. Ext: no edema Problem List - Problems (1) Acute appendicitis with generalized peritonitis and abscess Assessment/Plan: Plan -monitor drain output -IV abx as per medicine/ID -no need for surgical intervention at this time will need interval outpatient appendectomy -will follow Code(s): K35.21 - ACUTE APPENDICITIS WITH GEN PERITONITIS, WITH ABSCESS Qualifiers: Appendicitis perforation presence: with perforation
[2019-04-02] MEDS: DOCUSATE SODIUM 100 MG CAPSULE (FP) PO SCH ×2 (09:13→22:18)
[2019-04-02] MEDS: ASPIRIN COATED 81 MG TABLET.EC PO SCH (09:14)
[2019-04-02] MEDS: PANTOPRAZOLE 40 MG TABLET PO SCH (09:14)
--- NOTE | 2019-04-02 09:44 | PN ---
Physical Exam: SUBJECTIVE: Patient seen and examined at the bedside. mentation at baseline. poc again discussed with him, results of all tests discussed with him. He denies any pain or discomfort. OBJECTIVE: Patient is a 38 year old male with a significant past medical history of ADHD ( has been off his medications for weeks per patient) who presented to the ED on for abdominal pain and found to have a ruptured appendix with abscess formation (drain placed on admission). He has been medically managed since admission on IV Zosyn. Hospitalization complicated on 04/01/2019 when patient developed SVT, became diaphoretic, c/o of chest pain, difficulty breathing and became hypotensive when on . He was transferred to [address] [place] [address] for cardiac monitoring. EKG/zoll monitor showed SVT. Adenosine 6mg given with no effect, followed by adenosine 12mg which broke the SVT rhythm to ST in 100s, he was then started on PO cardizem 30mg q6 per cardiology. Patient was again a rapid response on same day when he was down at CT scan for abd and cta when heart rate went into the 200s. He was given cardizem 5 iv push with improvement of heart rate. Patient was then sent to the ICU for closer monitoring. Abd/pelvic CT scan/Chest CTA 04/01/2019 showed no evidence of PE, but multiple abscess again seen. Two new drains were placed: an 8fr hepatic drain and 10fr peritoneal drain. hepatic collection with turbid fluid and peritoneal collection with purulent drainage. Patient has original drain on right abdomen placed on 03/26/2019. A right moderate pleural effusion also seen. Imaging: Echo 03/31/2019: ef 65%, trace mr, trace tricuspid regurg, trace pulm heaven regurg. Chest CTA 03/31/2019: negative for PE, right moderate pleural effusion and small left pleural effusion with consolidation/air suspicious for pneumonia Abd/pelvis CT 03/31/2019: findings show acute appendicitis with multiple appendicoliths, significant stranding in the right lower quad. and multiple collections/abscesses in the pelvis. s/p insertion of a pigtail catheter in the collection in the right that has not improved sig. in size. persistent small collection in the right flank, paracolic gutter along inferior margin of the right liver w/o gross interval change. persistent large collection in the mid pelvis. thickening of small bowel loops in the lower abdomen. 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 on 2 liters of nasal cannula, breathing is easy and unlabored. HEAD: Normal with no signs of trauma. EYES: PERRL, extraocular movements intact ENT: Ears normal, nares patent, oropharynx clear without exudates, moist mucous membranes. NECK: supple LUNGS: bilateral upper lobes clear, right base diminished. 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 EXTREMITIES: trace edema bilaterally NEUROLOGICAL: awake, alert, mentation at baseline Laboratory Results - last 24 hr 04/01/19 04/01/19 04/01/19 00:30 08:31 08:31 WBC 17.1 H RBC 3.82 L Hgb 11.6 L Hct 34.2 L MCV 89.4 MCH 30.3 MCHC 33.9 RDW 13.0 Plt Count 361 MPV 8.0 Absolute Neuts (auto) 13.9 H Neutrophils % 81.3 Lymphocytes % 8.8 D Monocytes % 9.2 Eosinophils % 0.3 Basophils % 0.4 Nucleated RBC % 0 PT with INR INR PTT (Actin FS) Sodium 139 Potassium 4.9 Chloride 102 Carbon Dioxide 31 Anion Gap 6 L BUN 6.0 L Creatinine 0.7 Est GFR (CKD-EPI)AfAm 139.73 Est GFR (CKD-EPI)NonAf 120.56 Random Glucose 85 Lactic Acid Calcium 8.0 L Phosphorus Magnesium 1.8 Iron TIBC Iron Saturation Unsaturated IBC Ferritin Total Bilirubin 0.5 AST 28 ALT 36 Alkaline Phosphatase 44 L Creatine Kinase Troponin I < 0.02 < 0.02 Total Protein 5.6 L Albumin 2.0 L Opiates Screen Methadone Screen Barbiturate Screen Phencyclidine Screen Ur Amphetamines Screen MDMA (Ecstasy) Screen Benzodiazepines Screen Cocaine Screen U Marijuana (THC) Screen 04/01/19 04/01/19 04/01/19 08:31 08:31 10:00 WBC RBC Hgb Hct MCV MCH MCHC RDW Plt Count MPV Absolute Neuts (auto) Neutrophils % Lymphocytes % Monocytes % Eosinophils % Basophils % Nucleated RBC % PT with INR INR PTT (Actin FS) Sodium Potassium Chloride Carbon Dioxide Anion Gap BUN Creatinine Est GFR (CKD-EPI)AfAm Est GFR (CKD-EPI)NonAf Random Glucose Lactic Acid 1.1 Calcium Phosphorus Magnesium Iron 20 L TIBC 168 L Iron Saturation 11 L Unsaturated IBC 148 L Ferritin 521.9 H Total Bilirubin AST ALT Alkaline Phosphatase Creatine Kinase 34 Troponin I Total Protein Albumin Opiates Screen Positive A* Methadone Screen Negative Barbiturate Screen Negative Phencyclidine Screen Negative Ur Amphetamines Screen Negative MDMA (Ecstasy) Screen Negative Benzodiazepines Screen Negative Cocaine Screen Negative U Marijuana (THC) Screen Negative 04/01/19 04/01/19 04/01/19 12:08 17:30 17:30 WBC 14.1 H RBC 3.60 L Hgb 10.9 L Hct 32.5 L MCV 90.1 MCH 30.2 MCHC 33.5 RDW 12.7 Plt Count 344 MPV 7.8 Absolute Neuts (auto) 11.0 H Neutrophils % 78.1 Lymphocytes % 11.0 D Monocytes % 9.5 Eosinophils % 0.8 D Basophils % 0.6 Nucleated RBC % 0 PT with INR 16.10 H INR 1.36 H PTT (Actin FS) 29.7 Sodium 137 Potassium 4.6 Chloride 103 Carbon Dioxide 31 Anion Gap 4 L BUN 7.3 Creatinine 0.6 Est GFR (CKD-EPI)AfAm 148.87 Est GFR (CKD-EPI)NonAf 128.44 Random Glucose 80 Lactic Acid Calcium 7.9 L Phosphorus Magnesium 1.8 Iron TIBC Iron Saturation Unsaturated IBC Ferritin Total Bilirubin 0.5 AST 29 ALT 38 Alkaline Phosphatase 43 L Creatine Kinase Troponin I Total Protein 5.7 L Albumin 2.0 L Opiates Screen Methadone Screen Barbiturate Screen Phencyclidine Screen Ur Amphetamines Screen MDMA (Ecstasy) Screen Benzodiazepines Screen Cocaine Screen U Marijuana (THC) Screen 04/01/19 04/02/19 04/02/19 17:30 05:25 05:25 WBC 9.4 RBC 3.48 L Hgb 10.9 L Hct 31.1 L MCV 89.5 MCH 31.3 MCHC 34.9 RDW 12.8 Plt Count 339 MPV 7.8 Absolute Neuts (auto) 6.6 Neutrophils % 69.7 Lymphocytes % 15.8 D Monocytes % 11.7 H Eosinophils % 2.0 D Basophils % 0.8 Nucleated RBC % 0 PT with INR INR PTT (Actin FS) Sodium 136 Potassium 4.5 Chloride 102 Carbon Dioxide 29 Anion Gap 4 L BUN 6.0 L Creatinine 0.7 Est GFR (CKD-EPI)AfAm 139.73 Est GFR (CKD-EPI)NonAf 120.56 Random Glucose 86 Lactic Acid Calcium 7.8 L Phosphorus 3.4 Magnesium 1.7 L Iron TIBC Iron Saturation Unsaturated IBC Ferritin Total Bilirubin 0.6 AST 39 H ALT 46 Alkaline Phosphatase 40 L Creatine Kinase Troponin I < 0.02 Total Protein 5.4 L Albumin 1.9 L Opiates Screen Methadone Screen Barbiturate Screen Phencyclidine Screen Ur Amphetamines Screen MDMA (Ecstasy) Screen Benzodiazepines Screen Cocaine Screen U Marijuana (THC) Screen Active Medications Generic Name Dose Route Start Last Admin Trade Name Freq PRN Reason Stop Dose Admin Aspirin 81 mg 04/01/19 10:30 04/02/19 09:14 Ecotrin - PO 81 mg DAILY [facility] Administration Chlorhexidine Gluconate 1 applic 04/01/19 22:00 04/02/19 03:52 Hibiclens For Decolonization - TP 1 applic HS [facility] Administration Diltiazem HCl 30 mg 04/01/19 12:00 04/02/19 05:34 Cardizem - PO 30 mg Q6HPO [facility] Administration Docusate Sodium 100 mg 03/28/19 22:00 04/02/19 09:13 Colace - PO 100 mg BID [facility] Administration Heparin Sodium (Porcine) 5,000 unit 04/01/19 14:00 04/02/19 05:34 Heparin - SQ 5,000 unit TID [facility] Administration Piperacillin Sod/Tazobactam 100 mls @ 200 mls/hr 03/26/19 18:00 04/02/19 09: 13 Sod 4.5 gm/ Dextrose IVPB 200 mls/hr Q8H-IV [facility] Administration Protocol Sodium Chloride 1,000 mls @ 100 mls/hr 04/01/19 15:00 04/02/19 00:17 Normal Saline - IV 100 mls/hr ASDIR [facility] Administration Mupirocin 1 applic 04/01/19 22:00 04/02/19 09:14 Bactroban Ointment (For Decolonization) - NS 04/06/19 21:59 1 applic BID [facility] Administration Oxycodone HCl 5 mg 03/30/19 13:01 04/02/19 05:35 Roxicodone - PO 5 mg Q6H PRN Administration PAIN LEVEL 7 - 10 Pantoprazole Sodium 40 mg 04/01/19 10:00 04/02/19 09:14 Protonix - PO 40 mg DAILY [facility] Administration Zolpidem Tartrate 5 mg 03/31/19 22:00 04/02/19 00:50 Ambien - PO 5 mg HS PRN Administration INSOMNIA ASSESSMENT/PLAN: Problem List - Problems (1) Severe sepsis Assessment/Plan: severe sepsis in the setting of ruptured appendix with abscess collection. on Zosyn 4.5mg per ID Two new drains were placed: an 8fr hepatic drain and 10fr peritoneal drain. monitor output WBC trended down, no fevers.blood cultures repeated and pending. Code(s): A41.9 - SEPSIS, UNSPECIFIED ORGANISM; R65.20 - SEVERE SEPSIS WITHOUT SEPTIC SHOCK (2) SVT (supraventricular tachycardia) Assessment/Plan: episodes of SVT on 04/01/2019, remains in NSR with PVCS. On Cardizem 30mg q6. On NS cardiology following troponins negative echo as noted above Code(s): I47.1 - SUPRAVENTRICULAR TACHYCARDIA (3) Chest pain Assessment/Plan: resolved Code(s): R07.9 - CHEST PAIN, UNSPECIFIED (4) Acute appendicitis Assessment/Plan: acute ruptured appendicitis with multiple lower abdominal and pelvic fluid collections suspicious for abscesses. two additional drains placed, hepatic and one on larger mid pelvic fluid collection. Code(s): K35.80 - UNSPECIFIED ACUTE APPENDICITIS Qualifiers: Acute appendicitis type: with localized peritonitis Appendicitis gangrene presence: without gangrene Appendicitis perforation presence: with perforation Appendicitis abscess presence: with abscess Qualified Code(s): K35.33 - Acute appendicitis with perforation and localized peritonitis, with abscess (5) Acute appendicitis with generalized peritonitis and abscess Assessment/Plan: monitor drain output Code(s): K35.21 - ACUTE APPENDICITIS WITH GEN PERITONITIS, WITH ABSCESS Qualifiers: Appendicitis perforation presence: with perforation (6) Perforated appendicitis Code(s): K35.32 - ACUTE APPENDICITIS WITH PERF AND LOC PERITONITIS, W/O ABSCS (7) Prophylactic measure Assessment/Plan: fen full liquid heparin tid monitor electrolytes incentive spriometer full code Code(s): Z29.9 - ENCOUNTER FOR PROPHYLACTIC MEASURES, UNSPECIFIED Visit type - Emergency Visit Emergency Visit: Yes ED Registration Date: 03/26/19 Care time: The patient presented to the Emergency Department on the above date and was hospitalized for further evaluation of their emergent condition. - New Patient This patient is new to me today: No - Critical Care Critical Care patient: Yes Total Critical Care Time (in minutes): 45 Critical Care Statement: The care of this patient involved high complexity decision making to prevent further life threatening deterioration of the patient 's condition and/or to evaluate & treat vital organ system(s) failure or risk of failure.
[2019-04-02] MEDS ORDERED: NAPH,MB-DB/K PH,MBDB POWDER PACKET PO SCH (10:00)
[2019-04-02 10:01] LABS: ANISOCYTOSIS 0; MACROCYTOSIS 0; PLATELET ESTIMATE NORMAL
--- NOTE | 2019-04-02 11:48 | PN ---
Progress Note, Physician Chief Complaint: Pt A&Ox3l; no chest pain or palpitations; no dizziness or dyspnea. History of Present Illness: 38-year-old white man with PMHx ADHD (last took medication more than a week ago) , daily 2-3 beer per night drinker, active smoker, presents with 5 days of GI complaints of nausea/vomiting/diarrhea/abdominal pain. No recent travel or sick contacts or antibiotics or history of recurring GI infections, presents with nonbloody vomiting and diarrhea that predominantly resolved about 2 days ago after lasting for 3 days, presents now with a persistent generalized abdominal pain that began 3 days ago most severely, constant for 2 days with some relief last night, then recurrence this morning. No h/o gallstones or pancreatitis. APt was found to have a perforated appendix and abscesses, which were operated on. This morning, he has been feeling chest discomfort and paolpitrations; he was found to be in SVT. No prior cardiac hx. Pt works out regulalry; no chest pain, dyspnea, or palptations. - Current Medication List Current Medications: Active Medications Aspirin (Ecotrin -) 81 mg PO DAILY [facility] Last Admin: 04/02/19 09:14 Dose: 81 mg Chlorhexidine Gluconate (Hibiclens For Decolonization -) 1 applic TP HS [facility] Last Admin: 04/02/19 03:52 Dose: 1 applic Diltiazem HCl (Cardizem Cd -) 120 mg PO DAILY [facility] Docusate Sodium (Colace -) 100 mg PO BID [facility] Last Admin: 04/02/19 09:13 Dose: 100 mg Heparin Sodium (Porcine) (Heparin -) 5,000 unit SQ TID [facility] Last Admin: 04/02/19 05:34 Dose: 5,000 unit Piperacillin Sod/Tazobactam (Sod 4.5 gm/ Dextrose) 100 mls @ 200 mls/hr IVPB Q8H-IV [facility]; Protocol Last Admin: 04/02/19 09:13 Dose: 200 mls/hr Sodium Chloride (Normal Saline -) 1,000 mls @ 100 mls/hr IV ASDIR [facility] Last Admin: 04/02/19 00:17 Dose: 100 mls/hr Mupirocin (Bactroban Ointment (For Decolonization) -) 1 applic NS BID [facility] Stop: 02/17/20 21:59 Last Admin: 04/02/19 09:14 Dose: 1 applic Oxycodone HCl (Roxicodone -) 5 mg PO Q6H PRN PRN Reason: PAIN LEVEL 7 - 10 Last Admin: 04/02/19 05:35 Dose: 5 mg Pantoprazole Sodium (Protonix -) 40 mg PO DAILY [facility] Last Admin: 04/02/19 09:14 Dose: 40 mg Zolpidem Tartrate (Ambien -) 5 mg PO HS PRN PRN Reason: INSOMNIA Last Admin: 04/02/19 00:50 Dose: 5 mg - Objective Vital Signs: Vital Signs Temperature 99 F 04/02/19 06:00 Pulse Rate 82 04/02/19 08:00 Respiratory Rate 20 04/02/19 08:00 Blood Pressure 113/73 04/02/19 08:00 O2 Sat by Pulse Oximetry (%) 95 04/02/19 00:00 Constitutional: Yes: Well Nourished, No Distress Eyes: Yes: WNL HENT: Yes: WNL Neck: Yes: WNL Cardiovascular: Yes: Regular Rate and Rhythm Respiratory: Yes: WNL Gastrointestinal: Yes: Soft, Other (dressing dry and intact; drain) Genitourinary: Yes: WNL Breast(s): Yes: WNL Musculoskeletal: Yes: WNL Extremities: Yes: WNL Edema: No Peripheral Pulses WNL: Yes Integumentary: Yes: WNL Wound/Incision: Yes: Dressing Dry and Intact, Draining Neurological: Yes: WNL ...Motor Strength: WNL Psychiatric: Yes: WNL Labs: CBC, BMP 04/02/19 05:25 04/02/19 05:25 INR, PTT INR 1.36 (0.83-1.09) H 04/01/19 12:08 Current Medications Aspirin (Ecotrin -) 81 mg PO DAILY [facility] Last Admin: 04/02/19 09:14 Dose: 81 mg Chlorhexidine Gluconate (Hibiclens For Decolonization -) 1 applic TP HS [facility] Last Admin: 04/02/19 03:52 Dose: 1 applic Diltiazem HCl (Cardizem Cd -) 120 mg PO DAILY [facility] Docusate Sodium (Colace -) 100 mg PO BID [facility] Last Admin: 04/02/19 09:13 Dose: 100 mg Heparin Sodium (Porcine) (Heparin -) 5,000 unit SQ TID [facility] Last Admin: 04/02/19 05:34 Dose: 5,000 unit Piperacillin Sod/Tazobactam (Sod 4.5 gm/ Dextrose) 100 mls @ 200 mls/hr IVPB Q8H-IV [facility]; Protocol Last Admin: 04/02/19 09:13 Dose: 200 mls/hr Sodium Chloride (Normal Saline -) 1,000 mls @ 100 mls/hr IV ASDIR [facility] Last Admin: 04/02/19 00:17 Dose: 100 mls/hr Mupirocin (Bactroban Ointment (For Decolonization) -) 1 applic NS BID [facility] Stop: 04/06/19 21:59 Last Admin: 04/02/19 09:14 Dose: 1 applic Oxycodone HCl (Roxicodone -) 5 mg PO Q6H PRN PRN Reason: PAIN LEVEL 7 - 10 Last Admin: 04/02/19 05:35 Dose: 5 mg Pantoprazole Sodium (Protonix -) 40 mg PO DAILY [facility] Last Admin: 04/02/19 09:14 Dose: 40 mg Zolpidem Tartrate (Ambien -) 5 mg PO HS PRN PRN Reason: INSOMNIA Last Admin: 04/02/19 00:50 Dose: 5 mg Abnormal Lab Results 04/01/19 04/01/19 04/01/19 10:00 12:08 17:30 WBC 14.1 H RBC 3.60 L Hgb 10.9 L Hct 32.5 L Absolute Neuts (auto) 11.0 H Monocytes % Basophils % (Manual) PT with INR 16.10 H INR 1.36 H Anion Gap BUN Calcium Magnesium AST Alkaline Phosphatase Total Protein Albumin Opiates Screen Positive A* 04/01/19 04/02/19 04/02/19 17:30 05:25 05:25 WBC RBC 3.48 L Hgb 10.9 L Hct 31.1 L Absolute Neuts (auto) Monocytes % 11.7 H Basophils % (Manual) 2.1 H D PT with INR INR Anion Gap 4 L 4 L BUN 6.0 L Calcium 7.9 L 7.8 L Magnesium 1.7 L AST 39 H Alkaline Phosphatase 43 L 40 L Total Protein 5.7 L 5.4 L Albumin 2.0 L 1.9 L Opiates Screen - ....Imaging Chest X-ray: Image Reviewed Cat Scan: Image Reviewed Problem List - Problems (1) SVT (supraventricular tachycardia) Assessment/Plan: Pt converted from SVT to NSR after 12 mg adenosine 12 mg IVP. TNI < 0.02 x 2. ECHO: normal LVEF; normal chamber sizes. Started diltiazem 30 mg q6h; will change to diltiazem CD 120 mg qd. Pain management. Plan for outpatient f/u with cardiology.Will consider long-term loop recorder. Code(s): I47.1 - SUPRAVENTRICULAR TACHYCARDIA (2) Perforated appendicitis Assessment/Plan: s/p surgery. F/u with surgeon. Wound care. Pain management. Code(s): K35.32 - ACUTE APPENDICITIS WITH PERF AND LOC PERITONITIS, W/O ABSCS Assessment/Plan CCU time spent: 35 minutes.
--- NOTE | 2019-04-02 12:06 | PN ---
Teaching Attending Note Name of Resident: Jeff Johnson ATTENDING PHYSICIAN STATEMENT I saw and evaluated the patient. I reviewed the resident's note and discussed the case with the resident. I agree with the resident's findings and plan as documented. SUBJECTIVE: Patient seen and examined in the ICU. Feels better today. Pain 10. No SVT. No CP or SOB. Intake & Output 03/30/19 03/31/19 04/01/19 04/02/19 23:59 23:59 23:59 23:59 Intake Total 810 2300 3410 1060 Output Total 30 630 1200 920 Balance 780 1670 2210 140 Last Vital Signs Temp Pulse Resp BP Pulse Ox 97.2 F L 82 18 106/64 95 04/02/19 10:00 04/02/19 12:00 04/02/19 12:00 04/02/19 12:00 04/02/19 09:00 Active Medications Aspirin (Ecotrin -) 81 mg PO DAILY [facility] Last Admin: 04/02/19 09:14 Dose: 81 mg Chlorhexidine Gluconate (Hibiclens For Decolonization -) 1 applic TP HS [facility] Last Admin: 04/02/19 03:52 Dose: 1 applic Diltiazem HCl (Cardizem Cd -) 120 mg PO DAILY [facility] Docusate Sodium (Colace -) 100 mg PO BID [facility] Last Admin: 04/02/19 09:13 Dose: 100 mg Heparin Sodium (Porcine) (Heparin -) 5,000 unit SQ TID [facility] Last Admin: 04/02/19 05:34 Dose: 5,000 unit Piperacillin Sod/Tazobactam (Sod 4.5 gm/ Dextrose) 100 mls @ 200 mls/hr IVPB Q8H-IV [facility]; Protocol Last Admin: 04/02/19 09:13 Dose: 200 mls/hr Sodium Chloride (Normal Saline -) 1,000 mls @ 100 mls/hr IV ASDIR [facility] Last Admin: 04/02/19 00:17 Dose: 100 mls/hr Mupirocin (Bactroban Ointment (For Decolonization) -) 1 applic NS BID [facility] Stop: 04/06/19 21:59 Last Admin: 04/02/19 09:14 Dose: 1 applic Oxycodone HCl (Roxicodone -) 5 mg PO Q6H PRN PRN Reason: PAIN LEVEL 7 - 10 Last Admin: 04/02/19 05:35 Dose: 5 mg Pantoprazole Sodium (Protonix -) 40 mg PO DAILY [facility] Last Admin: 04/02/19 09:14 Dose: 40 mg Zolpidem Tartrate (Ambien -) 5 mg PO HS PRN PRN Reason: INSOMNIA Last Admin: 04/02/19 00:50 Dose: 5 mg GENERAL: Awake, alert, and fully oriented, in no acute distress. HEAD: Normal with no signs of trauma. EYES: Pupils equal, round and reactive to light, LUNGS: Breath sounds equal, clear to auscultation bilaterally. No wheezes, and no crackles. No accessory muscle use. HEART: tachycardic and regular rhythm, normal S1 and S2 without murmur, rub or gallop. ABDOMEN: tenderness in RLQ, drian in place draining serosanguinous MUSCULOSKELETAL: Normal range of motion at all joints. LOWER EXTREMITIES: 2+ pulses, warm, well-perfused. No calf tenderness. No peripheral edema. SKIN: Warm, dry, normal turgor, no rashes or lesions noted. Laboratory Results - last 24 hr 03/28/19 04/01/19 04/01/19 13:00 00:30 10:00 WBC RBC Hgb Hct MCV MCH MCHC RDW Plt Count MPV Absolute Neuts (auto) Neutrophils % Neutrophils % (Manual) Band Neutrophils % Lymphocytes % Lymphocytes % (Manual) Monocytes % Monocytes % (Manual) Eosinophils % Eosinophils % (Manual) Basophils % Basophils % (Manual) Myelocytes % (Man) Promyelocytes % (Man) Blast Cells % (Manual) Nucleated RBC % Metamyelocytes Hypochromia Platelet Estimate Polychromasia Poikilocytosis Anisocytosis Microcytosis Macrocytosis PT with INR INR PTT (Actin FS) Sodium Potassium Chloride Carbon Dioxide Anion Gap BUN Creatinine Est GFR (CKD-EPI)AfAm Est GFR (CKD-EPI)NonAf Random Glucose Calcium Phosphorus Magnesium Total Bilirubin AST ALT Alkaline Phosphatase Troponin I < 0.02 Total Protein Albumin Stool O & P [place] Negative Opiates Screen Positive A* Methadone Screen Negative Barbiturate Screen Negative Phencyclidine Screen Negative Ur Amphetamines Screen Negative MDMA (Ecstasy) Screen Negative Benzodiazepines Screen Negative Cocaine Screen Negative U Marijuana (THC) Screen Negative O & P Permanent Slide 04/01/19 04/01/1904/01/20 12:08 17:30 17:30 WBC 14.1 H RBC 3.60 L Hgb 10.9 L Hct 32.5 L MCV 90.1 MCH 30.2 MCHC 33.5 RDW 12.7 Plt Count 344 MPV 7.8 Absolute Neuts (auto) 11.0 H Neutrophils % 78.1 Neutrophils % (Manual) Band Neutrophils % Lymphocytes % 11.0 D Lymphocytes % (Manual) Monocytes % 9.5 Monocytes % (Manual) Eosinophils % 0.8 D Eosinophils % (Manual) Basophils % 0.6 Basophils % (Manual) Myelocytes % (Man) Promyelocytes % (Man) Blast Cells % (Manual) Nucleated RBC % 0 Metamyelocytes Hypochromia Platelet Estimate Polychromasia Poikilocytosis Anisocytosis Microcytosis Macrocytosis PT with INR 16.10 H INR 1.36 H PTT (Actin FS) 29.7 Sodium 137 Potassium 4.6 Chloride 103 Carbon Dioxide 31 Anion Gap 4 L BUN 7.3 Creatinine 0.6 Est GFR (CKD-EPI)AfAm 148.87 Est GFR (CKD-EPI)NonAf 128.44 Random Glucose 80 Calcium 7.9 L Phosphorus Magnesium 1.8 Total Bilirubin 0.5 AST 29 ALT 38 Alkaline Phosphatase 43 L Troponin I Total Protein 5.7 L Albumin 2.0 L Stool O & P [place] Opiates Screen Methadone Screen Barbiturate Screen Phencyclidine Screen Ur Amphetamines Screen MDMA (Ecstasy) Screen Benzodiazepines Screen Cocaine Screen U Marijuana (THC) Screen O & P Permanent Slide 04/01/19 04/02/19 04/02/19 17:30 05:25 05:25 WBC 9.4 RBC 3.48 L Hgb 10.9 L Hct 31.1 L MCV 89.5 MCH 31.3 MCHC 34.9 RDW 12.8 Plt Count 339 MPV 7.8 Absolute Neuts (auto) 6.6 Neutrophils % 69.7 Neutrophils % (Manual) 65.6 Band Neutrophils % 0.0 Lymphocytes % 15.8 D Lymphocytes % (Manual) 19.8 D Monocytes % 11.7 H Monocytes % (Manual) 6 Eosinophils % 2.0 D Eosinophils % (Manual) 4.2 D Basophils % 0.8 Basophils % (Manual) 2.1 H D Myelocytes % (Man) 2 D Promyelocytes % (Man) 0 Blast Cells % (Manual) 0 Nucleated RBC % 0 Metamyelocytes 0 Hypochromia 0 Platelet Estimate Normal Polychromasia 0 Poikilocytosis 0 Anisocytosis 0 Microcytosis 0 Macrocytosis 0 PT with INR INR PTT (Actin FS) Sodium 136 Potassium 4.5 Chloride 102 Carbon Dioxide 29 Anion Gap 4 L BUN 6.0 L Creatinine 0.7 Est GFR (CKD-EPI)AfAm 139.73 Est GFR (CKD-EPI)NonAf 120.56 Random Glucose 86 Calcium 7.8 L Phosphorus 3.4 Magnesium 1.7 L Total Bilirubin 0.6 AST 39 H ALT 46 Alkaline Phosphatase 40 L Troponin I < 0.02 Total Protein 5.4 L Albumin 1.9 L Stool O & P [place] Opiates Screen Methadone Screen Barbiturate Screen Phencyclidine Screen Ur Amphetamines Screen MDMA (Ecstasy) Screen Benzodiazepines Screen Cocaine Screen U Marijuana (THC) Screen O & P Permanent Slide ASSESSMENT/PLAN: SVT: resolved Sepsis due to acute ruptured appendicitis. ABX per ID O2 as needed VTE prophylaxis IVF Monitor drain output Cardiac Telemetry monitoring Dr Rebolledo
--- NOTE | 2019-04-02 13:41 | EKG ---
Test Reason : Blood Pressure : / mmHG Vent. Rate : 085 BPM Atrial Rate : 085 BPM P-R Int : 158 ms QRS Dur : 090 ms QT Int : 358 ms P-R-T Axes : 026 029 016 degrees QTc Int : 426 ms NORMAL SINUS RHYTHM NORMAL ECG WHEN COMPARED WITH ECG OF 01-APR-2019 09:18, NO SIGNIFICANT CHANGE WAS FOUND Confirmed by SEEMA MAR MD ([id number]) on 04/02/2019 1:41:07 PM Referred By: CAILIN ROMERO Confirmed By:SEEMA MAR MD
--- NOTE | 2019-04-02 13:44 | PN ---
Progress Note, Physician History of Present Illness: stable now draind liver abscess and appendicular abscess no complaints - Current Medication List Current Medications: Active Medications Aspirin (Ecotrin -) 81 mg PO DAILY [facility] Last Admin: 04/02/19 09:14 Dose: 81 mg Chlorhexidine Gluconate (Hibiclens For Decolonization -) 1 applic TP HS [facility] Last Admin: 04/02/19 03:52 Dose: 1 applic Diltiazem HCl (Cardizem Cd -) 120 mg PO DAILY [facility] Last Admin: 04/02/19 12:09 Dose: 120 mg Docusate Sodium (Colace -) 100 mg PO BID [facility] Last Admin: 04/02/19 09:13 Dose: 100 mg Heparin Sodium (Porcine) (Heparin -) 5,000 unit SQ TID [facility] Last Admin: 04/02/19 13:08 Dose: 5,000 unit Piperacillin Sod/Tazobactam (Sod 4.5 gm/ Dextrose) 100 mls @ 200 mls/hr IVPB Q8H-IV [facility]; Protocol Last Admin: 04/02/19 09:13 Dose: 200 mls/hr Sodium Chloride (Normal Saline -) 1,000 mls @ 100 mls/hr IV ASDIR [facility] Last Admin: 04/02/19 00:17 Dose: 100 mls/hr Mupirocin (Bactroban Ointment (For Decolonization) -) 1 applic NS BID [facility] Stop: 04/06/19 21:59 Last Admin: 04/02/19 09:14 Dose: 1 applic Oxycodone HCl (Roxicodone -) 5 mg PO Q6H PRN PRN Reason: PAIN LEVEL 7 - 10 Last Admin: 04/02/19 05:35 Dose: 5 mg Pantoprazole Sodium (Protonix -) 40 mg PO DAILY [facility] Last Admin: 04/02/19 09:14 Dose: 40 mg Zolpidem Tartrate (Ambien -) 5 mg PO HS PRN PRN Reason: INSOMNIA Last Admin: 04/02/19 00:50 Dose: 5 mg - Objective Vital Signs: Vital Signs Temperature 98.3 F 04/02/19 13:25 Pulse Rate 84 04/02/19 13:25 Respiratory Rate 18 04/02/19 13:25 Blood Pressure 111/69 04/02/19 13:25 O2 Sat by Pulse Oximetry (%) 95 04/02/19 09:00 Constitutional: Yes: No Distress, Calm Cardiovascular: Yes: S1, S2 Respiratory: Yes: Regular, CTA Bilaterally Gastrointestinal: Yes: Soft, Hypoactive Bowel Sounds, Other (drains in place) Musculoskeletal: Yes: WNL Extremities: Yes: WNL Wound/Incision: Yes: Dressing Dry and Intact Neurological: Yes: Alert, Oriented Psychiatric: Yes: Alert, Oriented Labs: CBC, BMP 04/02/19 05:25 04/02/19 05:25 INR, PTT INR 1.36 (0.83-1.09) H 04/01/19 12:08 Assessment/Plan 38 M no PMHx, w/ acute ruptured appendicitis with abscess abd pain appensdicitis abd abscess pain leukocytosis - Problems (1) SVT (supraventricular tachycardia) Code(s): I47.1 - SUPRAVENTRICULAR TACHYCARDIA (2) Perforated appendicitis Code(s): K35.32 - ACUTE APPENDICITIS WITH PERF AND LOC PERITONITIS, W/O ABSCS liver abscess plan continue current mgmt abx await for identification of the organism rest as per the team
--- NOTE | 2019-04-02 15:16 | PN ---
Physical Exam: SUBJECTIVE: Patient seen and examined O/N: had SVT, now sp adenosine 6mg, then 12mg States that abd pain has improved. Denies chest pain, palpitations, SOB. Able to tolerate FLD. OBJECTIVE: Vital Signs Period Temp Pulse Resp BP Sys/Thomas Pulse Ox Last 24 Hr 97.2 F-99.9 F 80-98 18-31 100-115/58-73 95-98 GENERAL: The patient is awake, alert, and fully oriented, in no acute distress. HEAD: NC/AT EYES: sclera anicteric, conjunctiva clear. No ptosis. ENT: Ears normal, nares patent, oropharynx clear without exudates, moist mucous membranes. NECK: Trachea midline, full range of motion, supple. LUNGS: Breath sounds equal, clear to auscultation bilaterally, no wheezes, no crackles, no accessory muscle use. Breathing comfortably on RA HEART: Regular rate and rhythm, S1, S2 without murmur, rub or gallop. ABDOMEN: Soft, nontender, nondistended, normoactive bowel sounds, no guarding, no rebound. RLQ drain w/ pale white-yellow drainage. LLQ drains x2, w/ SS drainage EXTREMITIES: 2+ pulses, warm, well-perfused, no edema. NEUROLOGICAL: Normal speech, gait not observed. PSYCH: Normal mood, normal affect. SKIN: Warm, dry, normal turgor, no rashes or lesions noted Laboratory Results - last 24 hr 03/28/19 04/01/19 04/01/19 13:00 00:30 17:30 WBC 14.1 H RBC 3.60 L Hgb 10.9 L Hct 32.5 L MCV 90.1 MCH 30.2 MCHC 33.5 RDW 12.7 Plt Count 344 MPV 7.8 Absolute Neuts (auto) 11.0 H Neutrophils % 78.1 Neutrophils % (Manual) Band Neutrophils % Lymphocytes % 11.0 D Lymphocytes % (Manual) Monocytes % 9.5 Monocytes % (Manual) Eosinophils % 0.8 D Eosinophils % (Manual) Basophils % 0.6 Basophils % (Manual) Myelocytes % (Man) Promyelocytes % (Man) Blast Cells % (Manual) Nucleated RBC % 0 Metamyelocytes Hypochromia Platelet Estimate Polychromasia Poikilocytosis Anisocytosis Microcytosis Macrocytosis Sodium Potassium Chloride Carbon Dioxide Anion Gap BUN Creatinine Est GFR (CKD-EPI)AfAm Est GFR (CKD-EPI)NonAf Random Glucose Calcium Phosphorus Magnesium Total Bilirubin AST ALT Alkaline Phosphatase Troponin I < 0.02 Total Protein Albumin Stool O & P Wet Mount Negative O & P Permanent Slide 04/01/19 04/01/19 04/02/19 17:30 17:30 05:25 WBC 9.4 RBC 3.48 L Hgb 10.9 L Hct 31.1 L MCV 89.5 MCH 31.3 MCHC 34.9 RDW 12.8 Plt Count 339 MPV 7.8 Absolute Neuts (auto) 6.6 Neutrophils % 69.7 Neutrophils % (Manual) 65.6 Band Neutrophils % 0.0 Lymphocytes % 15.8 D Lymphocytes % (Manual) 19.8 D Monocytes % 11.7 H Monocytes % (Manual) 6 Eosinophils % 2.0 D Eosinophils % (Manual) 4.2 D Basophils % 0.8 Basophils % (Manual) 2.1 H D Myelocytes % (Man) 2 D Promyelocytes % (Man) 0 Blast Cells % (Manual) 0 Nucleated RBC % 0 Metamyelocytes 0 Hypochromia 0 Platelet Estimate Normal Polychromasia 0 Poikilocytosis 0 Anisocytosis 0 Microcytosis 0 Macrocytosis 0 Sodium 137 Potassium 4.6 Chloride 103 Carbon Dioxide 31 Anion Gap 4 L BUN 7.3 Creatinine 0.6 Est GFR (CKD-EPI)AfAm 148.87 Est GFR (CKD-EPI)NonAf 128.44 Random Glucose 80 Calcium 7.9 L Phosphorus Magnesium 1.8 Total Bilirubin 0.5 AST 29 ALT 38 Alkaline Phosphatase 43 L Troponin I < 0.02 Total Protein 5.7 L Albumin 2.0 L Stool O & P Wet Mount O & P Permanent Slide 04/02/19 05:25 WBC RBC Hgb Hct MCV MCH MCHC RDW Plt Count MPV Absolute Neuts (auto) Neutrophils % Neutrophils % (Manual) Band Neutrophils % Lymphocytes % Lymphocytes % (Manual) Monocytes % Monocytes % (Manual) Eosinophils % Eosinophils % (Manual) Basophils % Basophils % (Manual) Myelocytes % (Man) Promyelocytes % (Man) Blast Cells % (Manual) Nucleated RBC % Metamyelocytes Hypochromia Platelet Estimate Polychromasia Poikilocytosis Anisocytosis Microcytosis Macrocytosis Sodium 136 Potassium 4.5 Chloride 102 Carbon Dioxide 29 Anion Gap 4 L BUN 6.0 L Creatinine 0.7 Est GFR (CKD-EPI)AfAm 139.73 Est GFR (CKD-EPI)NonAf 120.56 Random Glucose 86 Calcium 7.8 L Phosphorus 3.4 Magnesium 1.7 L Total Bilirubin 0.6 AST 39 H ALT 46 Alkaline Phosphatase 40 L Troponin I Total Protein 5.4 L Albumin 1.9 L Stool O & P Wet [place] O & P Permanent Slide Active Medications Generic Name Dose Route Start Last Admin Trade Name Freq PRN Reason Stop Dose Admin Aspirin 81 mg 04/01/19 10:30 04/02/19 09:14 Ecotrin - PO 81 mg DAILY [facility] Administration Chlorhexidine Gluconate 1 applic 04/01/19 22:00 04/02/19 03:52 Hibiclens For Decolonization - TP 1 applic HS [facility] Administration Diltiazem HCl 120 mg 04/02/19 11:45 04/02/19 12:09 Cardizem Cd - PO 120 mg DAILY [facility] Administration Docusate Sodium 100 mg 03/28/19 22:00 04/02/19 09:13 Colace - PO 100 mg BID [facility] Administration Heparin Sodium (Porcine) 5,000 unit 04/01/19 14:00 04/02/19 13:08 Heparin - SQ 5,000 unit TID [facility] Administration Piperacillin Sod/Tazobactam 100 mls @ 200 mls/hr 03/26/19 18:00 04/02/19 09: 13 Sod 4.5 gm/ Dextrose IVPB 200 mls/hr Q8H-IV [facility] Administration Protocol Sodium Chloride 1,000 mls @ 100 mls/hr 04/01/19 15:00 04/02/19 00:17 Normal Saline - IV 100 mls/hr ASDIR [facility] Administration Mupirocin 1 applic 04/01/19 22:00 04/02/19 09:14 Bactroban Ointment (For Decolonization) - NS 04/06/19 21:59 1 applic BID [facility] Administration Oxycodone HCl 5 mg 03/30/19 13:01 04/02/19 05:35 Roxicodone - PO 5 mg Q6H PRN Administration PAIN LEVEL 7 - 10 Pantoprazole Sodium 40 mg 04/01/19 10:00 04/02/19 09:14 Protonix - PO 40 mg DAILY [facility] Administration Zolpidem Tartrate 5 mg 03/31/19 22:00 04/02/19 00:50 Ambien - PO 5 mg HS PRN Administration INSOMNIA ASSESSMENT/PLAN: 38M 63 y/o male with no past medical history who is admitted for sepsis 2/2 to acute ruptured appendicitis. Now s/p IR drains(01/24/20 [id number], 01/30/20 [id number]) Neuro - no active issues Cardiovascular # tachycardia, SVT --likely 2/2 to sepsis ---improving > Echo(04/01/19): LVEF 65%, RVSP 25mmHg - sp adenosine 6mg, then 12mg - continue fluids, monitor closely for signs of hypotension - followed by Dr. Romano --dilitiazem CD 120mg --maybe outpt loop-recorder #Pulmonary - maintain saturation > 90, continue nasal cannula as needed - Chest CTA: no signs of PE, moderate to large right pleural effusion and left small pleural effusion with consolidation and air - consolidation of middle lobe suggestive of PNA #GI - appendicitis with appendicolithis, significant stranding in the right lower quadrant and multiple collection/ abscesses, small collection in the right flank , thickening of small bowel loops - s/p insertion of a pigtail catheter - conservative management with IR and drainage of abscesses, continue antibiotics - followed by Dr. Ramirez, oxy 5 prn for pain #Nephro - stable, continue to monitor creatinine while on nephrotoxic agents - continue adequate fluid resuscitation #ID - followed by Dr. Ellis - continue Zosyn @ 4.75 q8h - monitor closely for signs of septic shock - abscess cx: multiorganisms growing, f/u new abscess cx's - blood cxs pending FEN - NS@100 - full liquid diet DVT ppx - heparin TID DISPO - downgrade from ICU to Tele Visit type - Emergency Visit Emergency Visit: No - New Patient This patient is new to me today: Yes Date on this admission: 04/02/19 - Critical Care Critical Care patient: Yes Total Critical Care Time (in minutes): 35 Critical Care Statement: The care of this patient involved high complexity decision making to prevent further life threatening deterioration of the patient 's condition and/or to evaluate & treat vital organ system(s) failure or risk of failure. ATTENDING PHYSICIAN STATEMENT I saw and evaluated the patient. I reviewed the resident's note and discussed the case with the resident. I agree with the resident's findings and plan as documented. SUBJECTIVE: OBJECTIVE: ASSESSMENT AND PLAN:
[2019-04-03] MEDS ORDERED: DEXTROSE 5%-WATER 100 ML IVPB ONE ×3 (00:51→18:57)
[2019-04-03] MEDS ORDERED: PIPERACILLIN/TAZOBACTAM 4.5 GM VIAL IVPB ONE ×3 (00:51→18:57)
[2019-04-03] MEDS: PIPERACILLIN/TAZOB 4.5 GM 4.5 GM in DEXTROSE 5%-WATER 100 ML IVPB SCH ×3 (01:16→19:00)
[2019-04-03] MEDS ORDERED: MORPHINE SULFATE 2 MG/ML VIAL IVPUSH ONE (02:07)
[2019-04-03] MEDS: oxyCODONE HCL 5 MG TABLET PO PRN ×3 (06:15→22:47)
[2019-04-03] MEDS: HEPARIN NA (PORCINE) 5,000 UNITS/ML 1ML VIAL SQ SCH ×3 (06:16→22:47)
[2019-04-03 07:35] LABS: BASO % 0.8 % (0-2.0); EOS % 1.6 % (0-4.5); HEMATOCRIT 32.3 % (35.4-49); HEMOGLOBIN 11.2 GM/dL (11.7-16.9); LYMPH % 14.7 % (8-40); MCH 31.1 pg (25.7-33.7); MCHC 34.8 g/dl (32.0-35.9); MEAN CELL VOLUME 89.5 fl (80-96); MONO % 10.9 % (3.8-10.2); PLATELET COUNT 369 K/MM3 (134-434); RBC 3.61 M/mm3 (4.00-5.60); RDW 12.6 % (11.9-15.9)
[2019-04-03 08:09] LABS: BILIRUBIN,TOTAL 0.4 mg/dL (0.2-1); BLOOD UREA NITROGEN 5.5 mg/dL (7-18); CALCIUM 7.9 mg/dL (8.5-10.1); CREATININE 0.7 mg/dL (0.55-1.3); POTASSIUM 4.5 mmol/L (3.5-5.1); TOT PROT 5.8 g/dl (6.4-8.2)
--- NOTE | 2019-04-03 08:26 | PN ---
Progress Note (short form) - Note Progress Note: GENERAL SURGERY 38 yo male admitted with acute perforated appy, multiple inta-abd collections. Now s/p multiple IR drain placements. Per notes, patient had an episode of SVT ( symptomatic, CP, palpitations, SOB). Was administered 12mg Adenosine IVP x1. Converted to NSR. Cardiology reviewed and started patient on Diltiazem CD 120 mg qd. Currently, patient supine in bed. Feeling better. No more episodes of SVT. C/o mild pain at drain insertion sites. He cont to get oob and ambulate unassisted. Voiding spontaneously. Remains afebrile. Last Vital Signs Temp Pulse Resp BP Pulse Ox 99.3 F 90 20 117/70 95 04/03/19 05:43 04/03/19 05:43 04/03/19 05:43 04/03/19 05:43 04/02/19 09:00 CBC, BMP 04/03/19 06:45 04/03/19 06:45 IR DRAIN OUTPUT 24Hrs 04/02/19 04/02/19 04/02/19 05:49 15:00 23:00 LLQ Drain 35 10 5 RLQ Drain 10 5 5 RUQ Drain 25 5 5 PE Gen: A&O x3 Resp: non-labored respirations on room air Abd: soft, nontender, nondistended. Drains in place with serosanguinous drainage. Ext: NT. lower compartments soft. No edema/swelling Problem List - Problems (1) Acute appendicitis with generalized peritonitis and abscess Assessment/Plan: 38 yo male with acute perforated appy and multiple abd abscesses. S/p IR drain placement x3. Doing well. Recovering. Non-toxic appearing. ID following --> recommendations for out-pt antibiotics (PO vs. PICC?) Monitor/record drain output Q shift No need for surgical intervention at this time will need interval outpatient appendectomy Cont medical management Cardio following Code(s): K35.21 - ACUTE APPENDICITIS WITH GEN PERITONITIS, WITH ABSCESS Qualifiers: Appendicitis perforation presence: with perforation
[2019-04-03] MEDS: PANTOPRAZOLE 40 MG TABLET PO SCH (10:56)
[2019-04-03] MEDS: DOCUSATE SODIUM 100 MG CAPSULE (FP) PO SCH ×2 (10:56→22:47)
[2019-04-03] MEDS: ASPIRIN COATED 81 MG TABLET.EC PO SCH (10:56)
--- NOTE | 2019-04-03 11:15 | PN ---
Progress Note, Physician History of Present Illness: 38-year-old male with no significant past medical or surgical history, daily 2 beer per night drinker, active smoker, presents with 5 days of GI complaints of nausea/vomiting/diarrhea/abdominal pain. No recent travel or sick contacts or antibiotics or history of recurring GI infections, presents with nonbloody vomiting and diarrhea that predominantly resolved about 2 days ago after lasting for 3 days, presents now with a persistent generalized abdominal pain that began 3 days ago most severely, constant for 2 days with some relief last night, then recurrence this morning. No h/o gallstones or pancreatitis. APt was found to have a perforated appendix, which was operated on. This morning, he has been feeling chest discomfort and paolpitrations; he was found to be in SVT. No prior cardiac hx. Pt works out regulalry; no chest pain, dyspnea, or palptations. - Current Medication List Current Medications: Active Medications Aspirin (Ecotrin -) 81 mg PO DAILY [facility] Last Admin: 04/03/19 10:56 Dose: 81 mg Diltiazem HCl (Cardizem Cd -) 120 mg PO DAILY [facility] Last Admin: 04/03/19 10:56 Dose: 120 mg Docusate Sodium (Colace -) 100 mg PO BID [facility] Last Admin: 04/03/19 10:56 Dose: 100 mg Heparin Sodium (Porcine) (Heparin -) 5,000 unit SQ TID [facility] Last Admin: 04/03/19 06:16 Dose: 5,000 unit Sodium Chloride (Normal Saline -) 1,000 mls @ 100 mls/hr IV ASDIR [facility] Last Admin: 04/02/19 22:18 Dose: 100 mls/hr Piperacillin Sod/Tazobactam (Sod 4.5 gm/ Dextrose) 100 mls @ 200 mls/hr IVPB Q8H-IV [facility]; Protocol Last Admin: 04/03/19 10:57 Dose: 200 mls/hr Oxycodone HCl (Roxicodone -) 5 mg PO Q6H PRN PRN Reason: PAIN LEVEL 7 - 10 Last Admin: 04/03/19 06:15 Dose: 5 mg Pantoprazole Sodium (Protonix -) 40 mg PO DAILY [facility] Last Admin: 04/03/19 10:56 Dose: 40 mg Zolpidem Tartrate (Ambien -) 5 mg PO HS PRN PRN Reason: INSOMNIA Last Admin: 04/02/19 22:18 Dose: 5 mg - Objective Vital Signs: Vital Signs Temperature 99.3 F 04/03/19 05:43 Pulse Rate 90 04/03/19 05:43 Respiratory Rate 04/03/19 05:43 Blood Pressure 117/70 04/03/19 05:43 O2 Sat by Pulse Oximetry (%) 95 04/02/19 09:00 Eyes: Yes: WNL, Conjunctiva Clear, EOM Intact HENT: Yes: WNL, Atraumatic, Normocephalic Neck: Yes: WNL, Supple, Trachea Midline Cardiovascular: Yes: WNL, Regular Rate and Rhythm, S1, S2 Respiratory: Yes: WNL, Regular, CTA Bilaterally Gastrointestinal: Yes: WNL, Normal Bowel Sounds Genitourinary: Yes: WNL Musculoskeletal: Yes: WNL Extremities: Yes: WNL Edema: No Integumentary: Yes: WNL Neurological: Yes: WNL, Alert, Oriented ...Motor Strength: WNL Psychiatric: Yes: WNL Labs: CBC, BMP 04/03/19 06:45 04/03/19 06:45 INR, PTT INR 1.36 (0.83-1.09) H 04/01/19 12:08 Assessment/Plan - Problems (1) SVT (supraventricular tachycardia) Assessment/Plan: Pt converted from SVT to NSR after 12 mg adenosine 12 mg IVP. TNI < 0.02 x 2. ECHO: normal LVEF; normal chamber sizes. Cont diltiazem CD 120 mg qd. Pain management. Plan for outpatient f/u with EP.Will consider long-term loop recorder/ SVT ablation. Code(s): I47.1 - SUPRAVENTRICULAR TACHYCARDIA (2) Perforated appendicitis Assessment/Plan: s/p surgery. F/u with surgeon. Wound care. Pain management. Code(s): K35.32 - ACUTE APPENDICITIS WITH PERF AND LOC PERITONITIS, W/O ABSCS
--- NOTE | 2019-04-03 13:22 | PN ---
Progress Note, Physician History of Present Illness: Seen and examined at bedside. Feels ok today. Applying for short term disability. Afebrile. No events on telemetry. Denies nausea vomiting fever chills chest pain or SOB. Mild abdominal pain. Tolerating full liquid diet for the past few days now. no leukocytosis today. - Current Medication List Current Medications: Active Medications Aspirin (Ecotrin -) 81 mg PO DAILY [facility] Last Admin: 04/03/19 10:56 Dose: 81 mg Diltiazem HCl (Cardizem Cd -) 120 mg PO DAILY [facility] Last Admin: 04/03/19 10:56 Dose: 120 mg Docusate Sodium (Colace -) 100 mg PO BID [facility] Last Admin: 04/03/19 10:56 Dose: 100 mg Heparin Sodium (Porcine) (Heparin -) 5,000 unit SQ TID [facility] Last Admin: 04/03/19 06:16 Dose: 5,000 unit Sodium Chloride (Normal Saline -) 1,000 mls @ 100 mls/hr IV ASDIR [facility] Last Admin: 04/02/19 22:18 Dose: 100 mls/hr Piperacillin Sod/Tazobactam (Sod 4.5 gm/ Dextrose) 100 mls @ 200 mls/hr IVPB Q8H-IV [facility]; Protocol Last Admin: 04/03/19 10:57 Dose: 200 mls/hr Oxycodone HCl (Roxicodone -) 5 mg PO Q6H PRN PRN Reason: PAIN LEVEL 7 - 10 Last Admin: 04/03/19 06:15 Dose: 5 mg Pantoprazole Sodium (Protonix -) 40 mg PO DAILY [facility] Last Admin: 04/03/19 10:56 Dose: 40 mg Zolpidem Tartrate (Ambien -) 5 mg PO HS PRN PRN Reason: INSOMNIA Last Admin: 04/02/19 22:18 Dose: 5 mg - Objective Vital Signs: Vital Signs Temperature 99.3 F 04/03/19 05:43 Pulse Rate 90 04/03/19 05:43 Respiratory Rate 20 04/03/19 05:43 Blood Pressure 117/70 04/03/19 05:43 O2 Sat by Pulse Oximetry (%) 95 04/02/19 09:00 Constitutional: Yes: No Distress, Calm Eyes: Yes: EOM Intact HENT: Yes: Atraumatic Neck: Yes: Supple Cardiovascular: Yes: Regular Rate and Rhythm, S1, S2 Respiratory: Yes: Regular, CTA Bilaterally Gastrointestinal: Yes: Soft, Tenderness (mild to moderate diffuse tenderness), Other ([address] with purulent fluid draining.) Extremities: Yes: WNL Edema: No Psychiatric: Yes: Alert, Oriented Labs: CBC, BMP 04/03/19 06:45 04/03/19 06:45 INR, PTT INR 1.36 (0.83-1.09) H 04/01/19 12:08 Impression/Plan Impression/Plan: 38M with no past medical history who is admitted for sepsis 03/22 to acute ruptured appendicitis.s/p IR drainage of abscesses with 3 drains at this time. Problem List: Severe sepsis secondary to Acute perforated appendicitis SVT Plan: Continue Abx per ID-on Zosyn f/u cultures from abscess drainage from 04/01/2019. so far lactose fermenting GNB continue telemetry monitoring-sinus rhythm at this time. no events on tele over last 24 hours Advance to regular diet as he has been tolerating FLD since 03/29/2019 Discussed with surgery PA-Patient may need repeat CT prior to discharge. 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 - New Patient This patient is new to me today: Yes Date on this admission: 04/03/19 - Critical Care Critical Care patient: No
--- NOTE | 2019-04-03 14:36 | PN ---
Progress Note, Physician History of Present Illness: stable no new issues draining - Current Medication List Current Medications: Active Medications Aspirin (Ecotrin -) 81 mg PO DAILY [facility] Last Admin: 04/03/19 10:56 Dose: 81 mg Diltiazem HCl (Cardizem Cd -) 120 mg PO DAILY [facility] Last Admin: 04/03/19 10:56 Dose: 120 mg Docusate Sodium (Colace -) 100 mg PO BID [facility] Last Admin: 04/03/19 10:56 Dose: 100 mg Heparin Sodium (Porcine) (Heparin -) 5,000 unit SQ TID [facility] Last Admin: 04/03/19 14:34 Dose: 5,000 unit Sodium Chloride (Normal Saline -) 1,000 mls @ 100 mls/hr IV ASDIR [facility] Last Admin: 04/02/19 22:18 Dose: 100 mls/hr Piperacillin Sod/Tazobactam (Sod 4.5 gm/ Dextrose) 100 mls @ 200 mls/hr IVPB Q8H-IV [facility]; Protocol Last Admin: 04/03/19 10:57 Dose: 200 mls/hr Oxycodone HCl (Roxicodone -) 5 mg PO Q6H PRN PRN Reason: PAIN LEVEL 7 - 10 Last Admin: 04/03/19 06:15 Dose: 5 mg Pantoprazole Sodium (Protonix -) 40 mg PO DAILY [facility] Last Admin: 04/03/19 10:56 Dose: 40 mg Zolpidem Tartrate (Ambien -) 5 mg PO HS PRN PRN Reason: INSOMNIA Last Admin: 04/02/19 22:18 Dose: 5 mg - Objective Vital Signs: Vital Signs Temperature 99.3 F 04/03/19 05:43 Pulse Rate 90 04/03/19 05:43 Respiratory Rate 20 04/03/19 05:43 Blood Pressure 117/70 04/03/19 05:43 O2 Sat by Pulse Oximetry (%) 95 04/02/19 09:00 Constitutional: Yes: No Distress, Calm Cardiovascular: Yes: S1, S2 Respiratory: Yes: Regular, CTA Bilaterally Gastrointestinal: Yes: Normal Bowel Sounds, Other Musculoskeletal: Yes: WNL Extremities: Yes: WNL Wound/Incision: Yes: Other Neurological: Yes: Alert, Oriented Psychiatric: Yes: Alert, Oriented Labs: CBC, BMP 04/03/19 06:45 04/03/19 06:45 INR, PTT INR 1.36 (0.83-1.09) H 04/01/19 12:08 Assessment/Plan 38 M no PMHx, w/ acute ruptured appendicitis with abscess abd pain appensdicitis abd abscess pain leukocytosis - Problems (1) SVT (supraventricular tachycardia) Code(s): I47.1 - SUPRAVENTRICULAR TACHYCARDIA (2) Perforated appendicitis Code(s): K35.32 - ACUTE APPENDICITIS WITH PERF AND LOC PERITONITIS, W/O ABSCS liver abscess plan continue current mgmt abx await for identification of the organism rest as per the team
[2019-04-03] MEDS: SODIUM CHLORIDE 1,000 ML IV SCH (22:47)
[2019-04-03] MEDS: ZOLPIDEM TARTRATE 5 MG TABLET PO PRN (22:47)
[2019-04-04] MEDS ORDERED: PIPERACILLIN/TAZOBACTAM 4.5 GM VIAL IVPB ONE ×3 (01:27→16:55)
[2019-04-04] MEDS ORDERED: DEXTROSE 5%-WATER 100 ML IVPB ONE ×3 (01:27→16:56)
[2019-04-04] MEDS: PIPERACILLIN/TAZOB 4.5 GM 4.5 GM in DEXTROSE 5%-WATER 100 ML IVPB SCH ×3 (02:29→17:23)
[2019-04-04] MEDS: oxyCODONE HCL 5 MG TABLET PO PRN ×2 (06:23→18:36)
[2019-04-04] MEDS: HEPARIN NA (PORCINE) 5,000 UNITS/ML 1ML VIAL SQ SCH ×3 (06:23→22:18)
[2019-04-04 07:06] LABS: BASO % 0.9 % (0-2.0); EOS % 1.4 % (0-4.5); HEMATOCRIT 30.5 % (35.4-49); HEMOGLOBIN 10.5 GM/dL (11.7-16.9); LYMPH % 15.6 % (8-40); MCH 30.9 pg (25.7-33.7); MCHC 34.5 g/dl (32.0-35.9); MEAN CELL VOLUME 89.5 fl (80-96); MEAN PLT VOLUME 8.2 fl (7.5-11.1); MONO % 11.3 % (3.8-10.2); NEUT % 70.8 % (42.8-82.8); PLATELET COUNT 367 K/MM3 (134-434); RBC 3.41 M/mm3 (4.00-5.60); RDW 12.6 % (11.9-15.9); WHITE BLOOD COUNT 9.1 K/mm3 (4.0-10.0)
[2019-04-04 07:44] LABS: ALBUMIN 2.1 g/dl (3.4-5.0); BILIRUBIN,TOTAL 0.6 mg/dL (0.2-1); BLOOD UREA NITROGEN 8.5 mg/dL (7-18); CALCIUM 8.2 mg/dL (8.5-10.1); CREATININE 0.7 mg/dL (0.55-1.3); MAGNESIUM 1.9 mg/dL (1.8-2.4); POTASSIUM 4.4 mmol/L (3.5-5.1); TOT PROT 5.9 g/dl (6.4-8.2)
[2019-04-04] MEDS: PANTOPRAZOLE 40 MG TABLET PO SCH (10:15)
[2019-04-04] MEDS: DOCUSATE SODIUM 100 MG CAPSULE (FP) PO SCH ×2 (10:15→22:18)
[2019-04-04] MEDS: ASPIRIN COATED 81 MG TABLET.EC PO SCH (10:15)
--- NOTE | 2019-04-04 11:06 | PN ---
Progress Note (short form) - Note Progress Note: Attending Surgeon No c/o; tolerating diet and drains VSS AF abdo-benign Drains w/ decreasing serpurulent drainage WBC nl IMP: improving PLAN: Continue as per ID; continue drains; will need f/u imaging. Jean-Paul Ramirez MD FACS
--- NOTE | 2019-04-04 12:08 | PN ---
Progress Note (short form) - Note Progress Note: Coverage for Dr. Juwan Sanchez Chief Complaint: Events noted, notes reviewed, denies any palpitations, dyspnea or chest discomfort, no abdominal discomfort noted- tolerating PO intake History of Present Illness: Seen and examined on telemetry. Events noted, notes reviewed, denies any palpitations, dyspnea or chest discomfort, no abdominal discomfort noted- tolerating PO intake Medications: Current Medications Aspirin (Ecotrin -) 81 mg PO DAILY [facility] Last Admin: 04/04/19 10:15 Dose: 81 mg Diltiazem HCl (Cardizem Cd -) 120 mg PO DAILY [facility] Last Admin: 04/04/19 10:15 Dose: 120 mg Docusate Sodium (Colace -) 100 mg PO BID [facility] Last Admin: 04/04/19 10:15 Dose: 100 mg Heparin Sodium (Porcine) (Heparin -) 5,000 unit SQ TID [facility] Last Admin: 04/04/19 06:23 Dose: 5,000 unit Sodium Chloride (Normal Saline -) 1,000 mls @ 100 mls/hr IV ASDIR [facility] Last Admin: 04/03/19 22:47 Dose: Not Given Piperacillin Sod/Tazobactam (Sod 4.5 gm/ Dextrose) 100 mls @ 200 mls/hr IVPB Q8H-IV [facility]; Protocol Last Admin: 04/04/19 10:16 Dose: 200 mls/hr Oxycodone HCl (Roxicodone -) 5 mg PO Q6H PRN PRN Reason: PAIN LEVEL 7 - 10 Last Admin: 04/04/19 06:23 Dose: 5 mg Pantoprazole Sodium (Protonix -) 40 mg PO DAILY [facility] Last Admin: 04/04/19 10:15 Dose: 40 mg Zolpidem Tartrate (Ambien -) 5 mg PO HS PRN PRN Reason: INSOMNIA Last Admin: 04/03/19 22:47 Dose: 5 mg Review of Systems - Review of Systems Constitutional: denies: Chills, Fever Cardiovascular: As noted above Respiratory: denies: Cough or Sputum Production Gastrointestinal: denies: Nausea, Vomiting, Diarrhea, Constipation or Abdominal Pain Neurological: denies: Headaches Vital Signs: Last Vital Signs Temp Pulse Resp BP Pulse Ox 98.8 F 97 H 18 119/56 L 94 L 04/04/19 10:00 04/04/19 10:00 04/04/19 10:00 04/04/19 10:00 04/04/19 09:00 Intake & Output 04/01/19 04/02/19 04/03/19 04/04/19 23:59 23:59 23:59 23:59 Intake Total 3410 2520 2700 1500 Output Total 1200 2105 1040 525 Balance 2210 415 1660 975 Neck: Supple Negative JVD No Bruit Respiratory: Clear to A&P bilaterally Cardiovascular: S1 S2 Regular Rate and Rhythm Gastrointestinal: Soft Benign Normal Bowel Sounds Ext: Negative Edema Labs: CBC, BMP 04/04/19 06:15 04/04/19 06:15 Assessment/Plan ASSESSMENT: 1. 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 Post appendectomy for acute perforated appendicitis with abscess formation PLAN: 1. Recommend B-Blockers as an alternative to Cardizem CD for management of of the above noted PSVT (preferable AV quan blocking agent) 2. Continue ASA for now 3. Continue antibiotics as per the primary team 4. Eventual outpatient evaluation by EP service for possible RFA as opposed to continuation of medical therapy life long, pending complete recovery from the above noted pathology Celina Capellan M.D.
--- NOTE | 2019-04-04 12:23 | PN ---
Progress Note, Physician History of Present Illness: Pt is alert, afebrile. Without new complaints. - Current Medication List Current Medications: Active Medications Aspirin (Ecotrin -) 81 mg PO DAILY [facility] Last Admin: 04/04/19 10:15 Dose: 81 mg Diltiazem HCl (Cardizem Cd -) 120 mg PO DAILY [facility] Last Admin: 04/04/19 10:15 Dose: 120 mg Docusate Sodium (Colace -) 100 mg PO BID [facility] Last Admin: 04/04/19 10:15 Dose: 100 mg Heparin Sodium (Porcine) (Heparin -) 5,000 unit SQ TID [facility] Last Admin: 04/04/19 06:23 Dose: 5,000 unit Sodium Chloride (Normal Saline -) 1,000 mls @ 100 mls/hr IV ASDIR [facility] Last Admin: 04/03/19 22:47 Dose: Not Given Piperacillin Sod/Tazobactam (Sod 4.5 gm/ Dextrose) 100 mls @ 200 mls/hr IVPB Q8H-IV [facility]; Protocol Last Admin: 04/04/19 10:16 Dose: 200 mls/hr Oxycodone HCl (Roxicodone -) 5 mg PO Q6H PRN PRN Reason: PAIN LEVEL 7 - 10 Last Admin: 04/04/19 06:23 Dose: 5 mg Pantoprazole Sodium (Protonix -) 40 mg PO DAILY [facility] Last Admin: 04/04/19 10:15 Dose: 40 mg Zolpidem Tartrate (Ambien -) 5 mg PO HS PRN PRN Reason: INSOMNIA Last Admin: 04/03/19 22:47 Dose: 5 mg - Objective Vital Signs: Vital Signs Temperature 98.8 F 04/04/19 10:00 Pulse Rate 97 H 04/04/19 10:00 Respiratory Rate 18 04/04/19 10:00 Blood Pressure 119/56 L 04/04/19 10:00 O2 Sat by Pulse Oximetry (%) 94 L 04/04/19 09:00 Constitutional: Yes: No Distress, Calm Cardiovascular: Yes: Regular Rate and Rhythm Gastrointestinal: Yes: Normal Bowel Sounds, Soft, Other (drains in place, minimal output) Genitourinary: Yes: WNL Integumentary: Yes: WNL Neurological: Yes: Alert, Oriented Labs: CBC, BMP 04/04/19 06:15 04/04/19 06:15 INR, PTT INR 1.36 (0.83-1.09) H 04/01/19 12:08 Microbiology 04/01/19 13:25 Abscess Gram Stain - Final 04/01/19 13:25 Abscess Body Fluid Culture - Final NO GROWTH OF AEROBIC ORGANISMS AFTER 48 HOURS INCUBATION 04/01/19 13:25 Abscess Anaerobic Culture - Final NO ANAEROBES WERE ISOLATED 04/01/19 13:25 Abscess Gram Stain - Final 04/01/19 13:25 Abscess Body Fluid Culture - Preliminary Escherichia Coli Pending Organism 04/01/19 13:25 Abscess Anaerobic Culture - Final NO ANAEROBES WERE ISOLATED 04/01/19 12:15 Blood - Peripheral Venous Blood Culture - Preliminary NO GROWTH OBTAINED AFTER 48 HOURS, INCUBATION TO CONTINUE FOR 3 DAYS. 04/01/19 12:08 Blood - Peripheral Venous Blood Culture - Preliminary NO GROWTH OBTAINED AFTER 48 HOURS, INCUBATION TO CONTINUE FOR 3 DAYS. 03/28/19 13:00 Stool Salmonella/Shigella Culture - Final NO GROWTH OF SALMONELLA OR SHIGELLA SPECIES OBTAINED 03/28/19 13:00 Stool Campylobacter Culture - Final NO GROWTH OF CAMPYLOBACTER SPECIES OBTAINED 03/28/19 13:00 Stool Yersinia Culture - Final NO GROWTH OF YERSINIA SPECIES OBTAINED 03/28/19 13:00 Stool Vibrio Culture - Final NO GROWTH OF VIBRIO SPECIES OBTAINED 03/28/19 13:00 Stool Escherichia coli 0157 Culture - Final NO GROWTH OF E COLI 0157 OBTAINED 03/26/19 15:44 Abscess Gram Stain - Final 03/26/19 15:44 Abscess Body Fluid Culture - Final Non Lactose Fermenting Gnb Non Lactose Fermenting Gnb#2 Lactose Fermenting Neg Bacilli Group D Strep Or Entero Coccus 03/26/19 15:44 Abscess Anaerobic Culture - Final NO ANAEROBES WERE ISOLATED 03/28/19 13:00 Stool Gram Stain - Final 03/28/19 13:00 Stool Clostridioides difficile Antigen - Final 03/28/19 13:00 Stool Clostridioides difficile Toxin Assay - Final 03/26/19 08:00 Urine - Urine Clean Catch Urine Culture - Final NO GROWTH OBTAINED Problem List - Problems (1) Acute appendicitis with generalized peritonitis and abscess Code(s): K35.21 - ACUTE APPENDICITIS WITH GEN PERITONITIS, WITH ABSCESS Qualifiers: Appendicitis perforation presence: with perforation (2) Perforated appendicitis Code(s): K35.32 - ACUTE APPENDICITIS WITH PERF AND LOC PERITONITIS, W/O ABSCS Assessment/Plan 38 M no PMHx, w/ acute ruptured appendicitis with abscess perforated appendicitis/abscesses -- wbc trended down, afebrile -- mild abd pain intermittently, controlled -- final abscess cultures pending, so far E. coli isolated -- continue Zon
[2019-04-04] MEDS: SODIUM CHLORIDE 1,000 ML IV SCH (13:40)
--- NOTE | 2019-04-04 18:49 | PN ---
Progress Note, Physician History of Present Illness: Seen and examined at bedside. Feels very good today. thinks he is "turning the corner today" Afebrile. Walked today and was a bit tired after but is improving. Had solid BM. Denies nausea vomiting fever chills chest pain or SOB. Mild abdominal pain. Tolerating regular diet. no leukocytosis today. - Current Medication List Current Medications: Active Medications Aspirin (Ecotrin -) 81 mg PO DAILY [facility] Last Admin: 04/04/19 10:15 Dose: 81 mg Diltiazem HCl (Cardizem Cd -) 120 mg PO DAILY [facility] Last Admin: 04/04/19 10:15 Dose: 120 mg Docusate Sodium (Colace -) 100 mg PO BID [facility] Last Admin: 04/04/19 10:15 Dose: 100 mg Heparin Sodium (Porcine) (Heparin -) 5,000 unit SQ TID [facility] Last Admin: 04/04/19 13:40 Dose: 5,000 unit Piperacillin Sod/Tazobactam (Sod 4.5 gm/ Dextrose) 100 mls @ 200 mls/hr IVPB Q8H-IV [facility]; Protocol Last Admin: 04/04/19 17:23 Dose: 200 mls/hr Oxycodone HCl (Roxicodone -) 5 mg PO Q6H PRN PRN Reason: PAIN LEVEL 7 - 10 Last Admin: 04/04/19 18:36 Dose: 5 mg Pantoprazole Sodium (Protonix -) 40 mg PO DAILY [facility] Last Admin: 04/04/19 10:15 Dose: 40 mg Zolpidem Tartrate (Ambien -) 5 mg PO HS PRN PRN Reason: INSOMNIA Last Admin: 04/03/19 22:47 Dose: 5 mg - Objective Vital Signs: Vital Signs Temperature 98.2 F 04/04/19 17:00 Pulse Rate 96 H 04/04/19 17:00 Respiratory Rate 20 04/04/19 17:00 Blood Pressure 133/74 04/04/19 17:00 O2 Sat by Pulse Oximetry (%) 94 L 04/04/19 09:00 Constitutional: Yes: No Distress, Calm Eyes: Yes: EOM Intact HENT: Yes: Atraumatic Neck: Yes: Supple Cardiovascular: Yes: Regular Rate and Rhythm, S1, S2 Respiratory: Yes: Regular, CTA Bilaterally Gastrointestinal: Yes: Soft, Tenderness (mild to moderate diffuse tenderness), Other ([address] with purulent fluid draining but less so than yesterday.) Extremities: Yes: WNL Edema: No Psychiatric: Yes: Alert, Oriented Labs: CBC, BMP 04/04/19 06:15 04/04/19 06:15 INR, PTT INR 1.36 (0.83-1.09) H 04/01/19 12:08 Impression/Plan Impression/Plan: 38M with no past medical history who is admitted for sepsis 03/22 to acute ruptured appendicitis.s/p IR drainage of abscesses with 3 drains at this time. Problem List: Severe sepsis secondary to Acute perforated appendicitis SVT Plan: Continue Abx per ID-on Zosyn f/u cultures from abscess drainage from 04/01/2019. Balderas sensitive E. Coli continue telemetry monitoring-sinus rhythm at this time. no events on tele over last 24 hours Advance to regular diet as he has been tolerating FLD since 03/29/2019 Patient may need repeat CT prior to discharge. 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 - New Patient This patient is new to me today: No - Critical Care Critical Care patient: No
[2019-04-04] MEDS: ZOLPIDEM TARTRATE 5 MG TABLET PO PRN (22:18)
[2019-04-05] MEDS ORDERED: DEXTROSE 5%-WATER 100 ML IVPB ONE ×2 (02:54→09:23)
[2019-04-05] MEDS ORDERED: PIPERACILLIN/TAZOBACTAM 4.5 GM VIAL IVPB ONE ×2 (02:54→09:23)
[2019-04-05] MEDS: PIPERACILLIN/TAZOB 4.5 GM 4.5 GM in DEXTROSE 5%-WATER 100 ML IVPB SCH ×2 (02:57→09:35)
[2019-04-05] MEDS: HEPARIN NA (PORCINE) 5,000 UNITS/ML 1ML VIAL SQ SCH ×3 (06:19→21:36)
[2019-04-05 07:22] LABS: BASO % 1.3 % (0-2.0); EOS % 1.5 % (0-4.5); HEMATOCRIT 30.3 % (35.4-49); HEMOGLOBIN 10.6 GM/dL (11.7-16.9); LYMPH % 15.3 % (8-40); MCHC 35.1 g/dl (32.0-35.9); MEAN CELL VOLUME 88.4 fl (80-96); MEAN PLT VOLUME 8.4 fl (7.5-11.1); MONO % 9.8 % (3.8-10.2); NEUT % 72.1 % (42.8-82.8); PLATELET COUNT 374 K/MM3 (134-434); RBC 3.43 M/mm3 (4.00-5.60); RDW 12.7 % (11.9-15.9)
[2019-04-05 07:50] LABS: ALBUMIN 2.1 g/dl (3.4-5.0); BILIRUBIN,TOTAL 0.3 mg/dL (0.2-1); BLOOD UREA NITROGEN 12.3 mg/dL (7-18); CALCIUM 8.5 mg/dL (8.5-10.1); CREATININE 0.6 mg/dL (0.55-1.3); MAGNESIUM 1.6 mg/dL (1.8-2.4); POTASSIUM 4.3 mmol/L (3.5-5.1); TOT PROT 6.2 g/dl (6.4-8.2)
--- NOTE | 2019-04-05 08:20 | PN ---
Progress Note (short form) - Note Progress Note: Coverage for Dr. Juwan Sanchez Chief Complaint: Events noted, notes reviewed, denies any palpitations, dyspnea or chest discomfort, no abdominal discomfort noted- tolerating PO intake, no recurrent arrhythmia noted History of Present Illness: Seen and examined on telemetry. Events noted, notes reviewed, denies any palpitations, dyspnea or chest discomfort, no abdominal discomfort noted- tolerating PO intake, no recurrent arrhythmia noted Medications: Current Medications Aspirin (Ecotrin -) 81 mg PO DAILY [facility] Last Admin: 04/04/19 10:15 Dose: 81 mg Diltiazem HCl (Cardizem Cd -) 120 mg PO DAILY [facility] Last Admin: 04/04/19 10:15 Dose: 120 mg Docusate Sodium (Colace -) 100 mg PO BID [facility] Last Admin: 04/04/19 22:18 Dose: 100 mg Heparin Sodium (Porcine) (Heparin -) 5,000 unit SQ TID [facility] Last Admin: 04/05/19 06:19 Dose: 5,000 unit Piperacillin Sod/Tazobactam (Sod 4.5 gm/ Dextrose) 100 mls @ 200 mls/hr IVPB Q8H-IV [facility]; Protocol Last Admin: 04/05/19 02:57 Dose: 200 mls/hr Oxycodone HCl (Roxicodone -) 5 mg PO Q6H PRN PRN Reason: PAIN LEVEL 7 - 10 Last Admin: 04/04/19 18:36 Dose: 5 mg Pantoprazole Sodium (Protonix -) 40 mg PO DAILY [facility] Last Admin: 04/04/19 10:15 Dose: 40 mg Zolpidem Tartrate (Ambien -) 5 mg PO HS PRN PRN Reason: INSOMNIA Last Admin: 04/04/19 22:18 Dose: 5 mg Review of Systems - Review of Systems Constitutional: denies: Chills, Fever Cardiovascular: As noted above Respiratory: denies: Cough or Sputum Production Gastrointestinal: denies: Nausea, Vomiting, Diarrhea, Constipation or Abdominal Pain Neurological: denies: Headaches Vital Signs: Last Vital Signs Temp Pulse Resp BP Pulse Ox 99.8 F H 91 H 20 127/72 95 04/05/19 08:47 04/05/19 08:47 04/05/19 08:47 04/05/19 08:47 04/05/19 08:45 Intake & Output 04/02/19 04/03/19 04/04/19 04/05/19 23:59 23:59 23:59 23:59 Intake Total 2520 2700 4840 100 Output Total 2105 1040 3158 320 Balance 415 1660 1682 -220 Neck: Supple Negative JVD No Bruit Respiratory: Clear to A&P bilaterally Cardiovascular: S1 S2 Regular Rate and Rhythm Gastrointestinal: Soft Benign Normal Bowel Sounds Ext: Negative Edema Labs: CBC, BMP 04/05/19 06:28 04/05/19 06:28 Hepatic Panel Total Bilirubin 0.3 mg/dL (0.2-1) 04/05/19 06:28 AST 66 U/L (15-37) H 04/05/19 06:28 ALT 74 U/L (13-61) H 04/05/19 06:28 Alkaline Phosphatase 48 U/L (45-117) 04/05/19 06:28 Albumin 2.1 g/dl (3.4-5.0) L 04/05/19 06:28 INR, PTT INR 1.36 (0.83-1.09) H 04/01/19 12:08 Assessment/Plan ASSESSMENT: 1. 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 Post appendectomy for acute perforated appendicitis with abscess formation 3. Anemia PLAN: 1. As outlined in yesterday's not recommend B-Blockers as an alternative to Cardizem CD for management of of the above noted PSVT (preferable AV quan blocking agent) 2. Continue ASA for now 3. Continue antibiotics as per the primary team 4. Eventual outpatient evaluation by EP service for possible RFA as opposed to continuation of medical therapy life long, pending complete recovery from the above noted pathology 5. May transfer to floor care Celina Capellan M.D.
[2019-04-05] MEDS: ASPIRIN COATED 81 MG TABLET.EC PO SCH (09:35)
[2019-04-05] MEDS: PANTOPRAZOLE 40 MG TABLET PO SCH (09:35)
[2019-04-05] MEDS: DOCUSATE SODIUM 100 MG CAPSULE (FP) PO SCH ×2 (09:35→21:48)
--- NOTE | 2019-04-05 12:22 | PN ---
Progress Note, Physician History of Present Illness: Pt is alert, stating he feels well. Remains afebrile. Denies current abd pain and is tolerating diet. - Current Medication List Current Medications: Active Medications Aspirin (Ecotrin -) 81 mg PO DAILY [facility] Last Admin: 04/05/19 09:35 Dose: 81 mg Docusate Sodium (Colace -) 100 mg PO BID [facility] Last Admin: 04/05/19 09:35 Dose: 100 mg Heparin Sodium (Porcine) (Heparin -) 5,000 unit SQ TID [facility] Last Admin: 04/05/19 06:19 Dose: 5,000 unit Ampicillin Sodium/Sulbactam (Sodium 3 gm/ Sodium Chloride) 100 mls @ 200 mls/ hr IVPB Q6H-IV [facility] Metoprolol Succinate (Toprol Xl -) 50 mg PO DAILY [facility] Last Admin: 04/05/19 10:02 Dose: Not Given Oxycodone HCl (Roxicodone -) 5 mg PO Q6H PRN PRN Reason: PAIN LEVEL 7 - 10 Last Admin: 04/04/19 18:36 Dose: 5 mg Pantoprazole Sodium (Protonix -) 40 mg PO DAILY [facility] Last Admin: 04/05/19 09:35 Dose: 40 mg Zolpidem Tartrate (Ambien -) 5 mg PO HS PRN PRN Reason: INSOMNIA Last Admin: 04/04/19 22:18 Dose: 5 mg - Objective Vital Signs: Vital Signs Temperature 99.8 F H 04/05/19 08:47 Pulse Rate 91 H 04/05/19 08:47 Respiratory Rate 20 04/05/19 08:47 Blood Pressure 127/72 04/05/19 08:47 O2 Sat by Pulse Oximetry (%) 95 04/05/19 08:45 Constitutional: Yes: No Distress, Calm Cardiovascular: Yes: Regular Rate and Rhythm Respiratory: Yes: CTA Bilaterally Gastrointestinal: Yes: Normal Bowel Sounds, Soft Genitourinary: Yes: WNL Extremities: Yes: WNL Edema: No Peripheral Pulses WNL: Yes Integumentary: Yes: WNL Wound/Incision: Yes: Other (drains in place, dressing dry) Neurological: Yes: Alert Labs: CBC, BMP 04/05/19 06:28 04/05/19 06:28 INR, PTT INR 1.36 (0.83-1.09) H 04/01/19 12:08 Microbiology 04/01/19 13:25 Abscess Gram Stain - Final 04/01/19 13:25 Abscess Body Fluid Culture - Preliminary Escherichia Coli Alpha Hemolytic Streptococcus 04/01/19 13:25 Abscess Anaerobic Culture - Final NO ANAEROBES WERE ISOLATED 04/01/19 12:15 Blood - Peripheral Venous Blood Culture - Preliminary NO GROWTH OBTAINED AFTER 72 HOURS, INCUBATION TO CONTINUE FOR 2 DAYS. 04/01/19 12:08 Blood - Peripheral Venous Blood Culture - Preliminary NO GROWTH OBTAINED AFTER 72 HOURS, INCUBATION TO CONTINUE FOR 2 DAYS. 04/01/19 13:25 Abscess Gram Stain - Final 04/01/19 13:25 Abscess Body Fluid Culture - Final NO GROWTH OF AEROBIC ORGANISMS AFTER 48 HOURS INCUBATION 04/01/19 13:25 Abscess Anaerobic Culture - Final NO ANAEROBES WERE ISOLATED 03/28/19 13:00 Stool Salmonella/Shigella Culture - Final NO GROWTH OF SALMONELLA OR SHIGELLA SPECIES OBTAINED 03/28/19 13:00 Stool Campylobacter Culture - Final NO GROWTH OF CAMPYLOBACTER SPECIES OBTAINED 03/28/19 13:00 Stool Yersinia Culture - Final NO GROWTH OF YERSINIA SPECIES OBTAINED 03/28/19 13:00 Stool Vibrio Culture - Final NO GROWTH OF VIBRIO SPECIES OBTAINED 03/28/19 13:00 Stool Escherichia coli 0157 Culture - Final NO GROWTH OF E COLI 0157 OBTAINED 03/26/19 15:44 Abscess Gram Stain - Final 03/26/19 15:44 Abscess Body Fluid Culture - Final Non Lactose Fermenting Gnb Non Lactose Fermenting Gnb#2 Lactose Fermenting Neg Bacilli Group D Strep Or Entero Coccus 03/26/19 15:44 Abscess Anaerobic Culture - Final NO ANAEROBES WERE ISOLATED 03/28/19 13:00 Stool Gram Stain - Final 03/28/19 13:00 Stool Clostridioides difficile Antigen - Final 03/28/19 13:00 Stool Clostridioides difficile Toxin Assay - Final 03/26/19 08:00 Urine - Urine Clean Catch Urine Culture - Final NO GROWTH OBTAINED Problem List - Problems (1) Acute appendicitis with generalized peritonitis and abscess Code(s): K35.21 - ACUTE APPENDICITIS WITH GEN PERITONITIS, WITH ABSCESS Qualifiers: Appendicitis perforation presence: with perforation (2) Perforated appendicitis Code(s): K35.32 - ACUTE APPENDICITIS WITH PERF AND LOC PERITONITIS, W/O ABSCS Assessment/Plan 38 M no PMHx, w/ acute ruptured appendicitis with abscess perforated appendicitis/abscesses s/p drainage -- abscess cultures noted, will switch to Unasyn -- wbc trended down, afebrile -- abd pain resolved continue monitor
[2019-04-05] MEDS: AMPICILLIN NA/SULBACTAM NA 3 GM in SODIUM CHLORIDE 100 ML IVPB SCH ×2 (15:19→21:36)
[2019-04-05] MEDS ORDERED: MAGNESIUM OXIDE 400 MG TABLET (FP) PO ONE (16:39)
--- NOTE | 2019-04-05 16:52 | PN ---
Progress Note, Physician History of Present Illness: Seen and examined at bedside. Feels great. I saw the patient walking around multiple times throughout the day. Remains Afebrile. Tmax 99.8. Had 2 solid BMs. Denies nausea vomiting fever chills chest pain or SOB. No abdominal pain. Tolerating regular diet. no leukocytosis today. Cultures growing Pansensitive E. Coli and alpha hemolytic strep. Switched from Zosyn to Unasyn by ID. TOBY outut between 8-30ml between the 3 different drains. - Current Medication List Current Medications: Active Medications Aspirin (Ecotrin -) 81 mg PO DAILY [facility] Last Admin: 04/05/19 09:35 Dose: 81 mg Docusate Sodium (Colace -) 100 mg PO BID [facility] Last Admin: 04/05/19 09:35 Dose: 100 mg Heparin Sodium (Porcine) (Heparin -) 5,000 unit SQ TID [facility] Last Admin: 04/05/19 15:18 Dose: 5,000 unit Ampicillin Sodium/Sulbactam (Sodium 3 gm/ Sodium Chloride) 100 mls @ 200 mls/ hr IVPB Q6H-IV [facility] Last Admin: 04/05/19 15:19 Dose: 200 mls/hr Magnesium Oxide (Mag-Ox -) 800 mg PO ONCE ONE Stop: 04/05/19 16:40 Metoprolol Succinate (Toprol Xl -) 50 mg PO DAILY [facility] Last Admin: 04/05/19 10:02 Dose: Not Given Oxycodone HCl (Roxicodone -) 5 mg PO Q6H PRN PRN Reason: PAIN LEVEL 7 - 10 Last Admin: 04/04/19 18:36 Dose: 5 mg Pantoprazole Sodium (Protonix -) 40 mg PO DAILY [facility] Last Admin: 04/05/19 09:35 Dose: 40 mg Zolpidem Tartrate (Ambien -) 5 mg PO HS PRN PRN Reason: INSOMNIA Last Admin: 04/04/19 22:18 Dose: 5 mg - Objective Vital Signs: Vital Signs Temperature 99.2 F 04/05/19 14:00 Pulse Rate 95 H 04/05/19 14:00 Respiratory Rate 04/05/19 08:47 Blood Pressure 125/74 04/05/19 14:00 O2 Sat by Pulse Oximetry (%) 95 04/05/19 08:45 Constitutional: Yes: No Distress, Calm Eyes: Yes: EOM Intact HENT: Yes: Atraumatic Neck: Yes: Supple Cardiovascular: Yes: Regular Rate and Rhythm, S1, S2 Respiratory: Yes: Regular, CTA Bilaterally Gastrointestinal: Yes: Soft, No:Tenderness Other ([address] with purulent fluid draining but less so than yesterday.) Extremities: Yes: WNL Edema: No Psychiatric: Yes: Alert, Oriented Labs: CBC, BMP 04/05/19 06:28 04/05/19 06:28 INR, PTT INR 1.36 (0.83-1.09) H 04/01/19 12:08 Impression/Plan Impression/Plan: 38M with no past medical history who is admitted for sepsis 03/22 to acute ruptured appendicitis.s/p IR drainage of abscesses with 3 drains at this time. Problem List: Severe sepsis secondary to Acute perforated appendicitis SVT Plan: Continue Abx per ID-on Zosyn f/u cultures from abscess drainage from 04/01/2019-Balderas sensitive E. Coli and alphahemolytic strep continue telemetry monitoring-sinus rhythm at this time. no events on tele over last 24 hours Continue regular diet Patient may need repeat CT prior to discharge. Will likely need PICC line for retirement ABx outpatient cardiology follow up for EP study and loop recorder Cardizem stopped and started on Toprol XL by cardiology. DVT PPx ambulate as tolerated pain control-using less oxycodone. now only 2 times per day. discontinue telemetry transfer to med/surg Visit type - Emergency Visit Emergency Visit: Yes ED Registration Date: 03/26/19 Care time: The patient presented to the Emergency Department on the above date and was hospitalized for further evaluation of their emergent condition. - New Patient This patient is new to me today: No - Critical Care Critical Care patient: No
[2019-04-05] MEDS: ZOLPIDEM TARTRATE 5 MG TABLET PO PRN (21:48)
[2019-04-05] MEDS: oxyCODONE HCL 5 MG TABLET PO PRN (21:55)
[2019-04-05] MEDS ORDERED: PT OWN MED DRAWER 7, Y5N ONE (23:51)
[2019-04-06] MEDS: AMPICILLIN NA/SULBACTAM NA 3 GM in SODIUM CHLORIDE 100 ML IVPB SCH ×2 (03:50→09:54)
[2019-04-06] MEDS ORDERED: PT OWN MED DRAWER 7, Y5N ONE (04:05)
[2019-04-06] MEDS: HEPARIN NA (PORCINE) 5,000 UNITS/ML 1ML VIAL SQ SCH ×3 (05:44→21:34)
[2019-04-06 07:07] LABS: BASO % 1.3 % (0-2.0); HEMATOCRIT 31.2 % (35.4-49); HEMOGLOBIN 10.6 GM/dL (11.7-16.9); LYMPH % 16.1 % (8-40); MCH 30.5 pg (25.7-33.7); MCHC 33.9 g/dl (32.0-35.9); MEAN CELL VOLUME 89.8 fl (80-96); MONO % 11.8 % (3.8-10.2); NEUT % 68.8 % (42.8-82.8); PLATELET COUNT 378 K/MM3 (134-434); RBC 3.48 M/mm3 (4.00-5.60); RDW 12.8 % (11.9-15.9); WHITE BLOOD COUNT 8.9 K/mm3 (4.0-10.0)
[2019-04-06 07:38] LABS: ALBUMIN 2.2 g/dl (3.4-5.0); BILIRUBIN,TOTAL 0.1 mg/dL (0.2-1); BLOOD UREA NITROGEN 12.9 mg/dL (7-18); CALCIUM 8.4 mg/dL (8.5-10.1); CREATININE 0.8 mg/dL (0.55-1.3); POTASSIUM 4.4 mmol/L (3.5-5.1); TOT PROT 6.1 g/dl (6.4-8.2)
--- NOTE | 2019-04-06 08:47 | PN ---
Progress Note (short form) - Note Progress Note: GENERAL SURGERY 38 yo male admitted with acute perforated appy, multiple inta-abd collections. Now s/p multiple IR drain placements. Currently, patient supine in bed. Feeling better. No more episodes of SVT. C/o mild pain at drain insertion sites. He cont to get oob and ambulate unassisted. Voiding spontaneously. Remains afebrile. Tolerating PO diet. Denies n/v/f/c, CP, palpitations, SOB or SOTO. Last Vital Signs Temp Pulse Resp BP Pulse Ox 98.4 F 94 H 18 124/67 93 L 04/06/19 05:00 04/06/19 05:00 04/06/19 05:00 04/06/19 05:00 04/05/19 20:57 CBC, BMP 04/06/19 06:50 04/06/19 06:50 24 Hr Drain Output 04/05/19 04/05/19 04/06/19 06:05 18:17 04:40 LLQ TOBY 5 2 3 RLQ TOBY 10 3 3 RUQ TOBY 5 1 2 PE Gen: A&O x3 Resp: non-labored respirations on room air Abd: soft, nontender, nondistended. Drains in place with serosanguinous drainage. Ext: NT. lower compartments soft. No edema/swelling Problem List - Problems (1) Acute appendicitis with generalized peritonitis and abscess Assessment/Plan: 38 yo male with acute perforated appy and multiple abd abscesses. S/p IR drain placement x3. Doing well. Recovering. Had an episode of SVT (symptomatic, CP, palpitations, SOB). Was administered 12mg Adenosine IVP x1. Converted to NSR. Cardiology reviewed and started patient on Diltiazem CD 120 mg qd. Non-toxic appearing. ID / Dr. Ellis --> recommendations for out-pt antibiotics --> he will need a PICC Monitor/record drain output Q shift No need for surgical intervention at this time will need interval outpatient appendectomy Cont medical management No further surgical input needed. f/u with Cardiology as out-patient to determine etiology of his SVT On behalf of Dr. Ramirez, thank you for the opportunity to participate in your patient's care. Code(s): K35.21 - ACUTE APPENDICITIS WITH GEN PERITONITIS, WITH ABSCESS Qualifiers: Appendicitis perforation presence: with perforation
--- NOTE | 2019-04-06 08:56 | PN ---
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 No abd pain, fevers, tolerating diet History of Present Illness: Patient is a 38 year old male with a significant past medical history of ADHD ( has been off his medications for weeks per patient) who presented to the ED on for abdominal pain and found to have a ruptured appendix with abscess formation (drain placed on admission). He has been medically managed since admission on IV Zosyn. Hospitalization complicated on 04/01/2019 when patient developed SVT. Abd/pelvic CT scan/Chest CTA 04/01/2019 showed no evidence of PE, but multiple abscess again seen. Maganged on IV abx with plan for PICC for extended course - Current Medication List Current Medications: Active Medications Aspirin (Ecotrin -) 81 mg PO DAILY [facility] Last Admin: 04/05/19 09:35 Dose: 81 mg Docusate Sodium (Colace -) 100 mg PO BID [facility] Last Admin: 04/05/19 21:48 Dose: 100 mg Heparin Sodium (Porcine) (Heparin -) 5,000 unit SQ TID [facility] Last Admin: 04/06/19 05:44 Dose: 5,000 unit Ampicillin Sodium/Sulbactam (Sodium 3 gm/ Sodium Chloride) 100 mls @ 200 mls/ hr IVPB Q6H-IV [facility] Last Admin: 04/06/19 03:50 Dose: 200 mls/hr Metoprolol Succinate (Toprol Xl -) 50 mg PO DAILY [facility] Last Admin: 04/05/19 10:02 Dose: Not Given Oxycodone HCl (Roxicodone -) 5 mg PO Q6H PRN PRN Reason: PAIN LEVEL 7 - 10 Last Admin: 04/05/19 21:55 Dose: 5 mg Pantoprazole Sodium (Protonix -) 40 mg PO DAILY [facility] Last Admin: 04/05/19 09:35 Dose: 40 mg Zolpidem Tartrate (Ambien -) 5 mg PO HS PRN PRN Reason: INSOMNIA Last Admin: 04/05/19 21:48 Dose: 5 mg - Objective Vital Signs: Vital Signs Temperature 98.4 F 04/06/19 05:00 Pulse Rate 94 H 04/06/19 05:00 Respiratory Rate 18 04/06/19 05:00 Blood Pressure 124/67 04/06/19 05:00 O2 Sat by Pulse Oximetry (%) 93 L 04/05/19 20:57 Constitutional: Yes: Well Nourished, No Distress, Calm Eyes: Yes: WNL, Conjunctiva Clear HENT: Yes: WNL, Atraumatic, Normocephalic Neck: Yes: WNL, Supple, Trachea Midline Cardiovascular: Yes: WNL, Regular Rate and Rhythm Respiratory: Yes: WNL, Regular, CTA Bilaterally Gastrointestinal: Yes: Normal Bowel Sounds, Soft, Other (multiple IV placed drains in abcesses) ...Rectal Exam: Yes: Deferred Genitourinary: Yes: WNL Breast(s): Yes: WNL Musculoskeletal: Yes: WNL Extremities: Yes: WNL Edema: No Peripheral Pulses WNL: Yes Integumentary: Yes: WNL Neurological: Yes: WNL, Alert, Oriented ...Motor Strength: WNL Psychiatric: Yes: WNL Labs: CBC, BMP 04/06/19 06:50 04/06/19 06:50 INR, PTT INR 1.36 (0.83-1.09) H 04/01/19 12:08 Problem List - Problems (1) ADHD Assessment/Plan: c/w radha on dc Code(s): F90.9 - ATTENTION-DEFICIT HYPERACTIVITY DISORDER, UNSPECIFIED TYPE (2) Acute appendicitis with generalized peritonitis and abscess Assessment/Plan: IR managed drains in abcesses to have PICC for longeterm abx Code(s): K35.21 - ACUTE APPENDICITIS WITH GEN PERITONITIS, WITH ABSCESS Qualifiers: Appendicitis perforation presence: with perforation (3) Perforated appendicitis Assessment/Plan: Will need interval appendectomy as out-patient with Dr Ramirez c/w abx Code(s): K35.32 - ACUTE APPENDICITIS WITH PERF AND LOC PERITONITIS, W/O ABSCS (4) Prophylactic measure Assessment/Plan: FEN Fluids: adequate PO intake Electrolytes: monitor & replete as needed Nutrition: regular diet DVT asa ambulation Dispo Maintain as inpatient full code discharge planning Code(s): Z29.9 - ENCOUNTER FOR PROPHYLACTIC MEASURES, UNSPECIFIED (5) SVT (supraventricular tachycardia) Assessment/Plan: resolved maintain on metoprolol outpatient cardiology follow up for EP study and loop recorder Code(s): I47.1 - SUPRAVENTRICULAR TACHYCARDIA Visit type - Emergency Visit Emergency Visit: Yes ED Registration Date: 03/26/19 Care time: The patient presented to the Emergency Department on the above date and was hospitalized for further evaluation of their emergent condition. - New Patient This patient is new to me today: Yes Date on this admission: 04/06/19 - Critical Care Critical Care patient: No - Discharge Referral Referred to [facility] No
[2019-04-06] MEDS: ASPIRIN COATED 81 MG TABLET.EC PO SCH (09:47)
[2019-04-06] MEDS: PANTOPRAZOLE 40 MG TABLET PO SCH (09:47)
[2019-04-06] MEDS: DOCUSATE SODIUM 100 MG CAPSULE (FP) PO SCH ×2 (09:47→21:33)
--- NOTE | 2019-04-06 12:28 | PN ---
Progress Note, Physician History of Present Illness: stable no new issues drains still draining - Current Medication List Current Medications: Active Medications Aspirin (Ecotrin -) 81 mg PO DAILY [facility] BEDS AT [facility] Last Admin: 04/06/19 09:47 Dose: 81 mg Docusate Sodium (Colace -) 100 mg PO BID [facility]CLUDE 234 BEDS AT THE [facility] Last Admin: 04/06/19 09:47 Dose: 100 mg Heparin Sodium (Porcine) (Heparin -) 5,000 unit SQ TID [facility] 234 BEDS AT THE [facility] Last Admin: 04/06/19 05:44 Dose: 5,000 unit Ampicillin Sodium/Sulbactam (Sodium 3 gm/ Sodium Chloride) 100 mls @ 200 mls/ hr IVPB Q6H-IV [facility]CLUDE 234 BEDS AT THE [facility] Last Admin: 04/06/19 09:54 Dose: 200 mls/hr Metoprolol Succinate (Toprol Xl -) 50 mg PO DAILY [facility]CLUDE 234 BEDS AT THE [facility] Last Admin: 04/06/19 09:47 Dose: 50 mg Oxycodone HCl (Roxicodone -) 5 mg PO Q6H PRN PRN Reason: PAIN LEVEL 7 - 10 Last Admin: 04/05/19 21:55 Dose: 5 mg Pantoprazole Sodium (Protonix -) 40 mg PO DAILY [facility] 234 BEDS AT [facility] Last Admin: 04/06/19 09:47 Dose: 40 mg Zolpidem Tartrate (Ambien -) 5 mg PO HS PRN PRN Reason: INSOMNIA Last Admin: 04/05/19 21:48 Dose: 5 mg - Objective Vital Signs: Vital Signs Temperature 98.4 F 04/06/19 05:00 Pulse Rate 94 H 04/06/19 05:00 Respiratory Rate 18 04/06/19 05:00 Blood Pressure 124/67 04/06/19 05:00 O2 Sat by Pulse Oximetry (%) 93 L 04/05/19 20:57 Constitutional: Yes: No Distress, Calm Cardiovascular: Yes: S1, S2 Respiratory: Yes: Regular, CTA Bilaterally Gastrointestinal: Yes: Normal Bowel Sounds, Soft Musculoskeletal: Yes: WNL Extremities: Yes: WNL Wound/Incision: Yes: Dressing Dry and Intact Neurological: Yes: Alert, Oriented Psychiatric: Yes: Alert, Oriented Labs: CBC, BMP 04/06/19 06:50 04/06/19 06:50 INR, PTT INR 1.36 (0.83-1.09) H 04/01/19 12:08 Assessment/Plan 38 M no PMHx, w/ acute ruptured appendicitis with abscess abd pain appensdicitis abd abscess pain leukocytosis - Problems (1) SVT (supraventricular tachycardia) Code(s): I47.1 - SUPRAVENTRICULAR TACHYCARDIA (2) Perforated appendicitis Code(s): K35.32 - ACUTE APPENDICITIS WITH PERF AND LOC PERITONITIS, W/O ABSCS liver abscess plan continue abx will need 4 weeks total will d/w the team
--- NOTE | 2019-04-06 15:42 | PN ---
Progress Note (short form) - Note Progress Note: Coverage for Dr. Juwan Sanchez Chief Complaint: Events noted, notes reviewed, denies any palpitations, dyspnea or chest discomfort, no abdominal discomfort noted- tolerating PO intake, transferred to floor care History of Present Illness: Seen and examined on telemetry. Events noted, notes reviewed, denies any palpitations, dyspnea or chest discomfort, no abdominal discomfort noted- tolerating PO intake, transferred to floor care Medications: Current Medications Aspirin (Ecotrin -) 81 mg PO DAILY [facility] Last Admin: 04/06/19 09:47 Dose: 81 mg Docusate Sodium (Colace -) 100 mg PO BID [facility] Last Admin: 04/06/19 09:47 Dose: 100 mg Heparin Sodium (Porcine) (Heparin -) 5,000 unit SQ TID [facility] Last Admin: 04/06/19 05:44 Dose: 5,000 unit Ertapenem 1 gm/ Sodium (Chloride) 50 mls @ 100 mls/hr IVPB DAILY [facility] Stop: 04/20/19 10:29 Metoprolol Succinate (Toprol Xl -) 50 mg PO DAILY [facility] Last Admin: 04/06/19 09:47 Dose: 50 mg Metronidazole (Flagyl -) 500 mg PO TID [facility] Oxycodone HCl (Roxicodone -) 5 mg PO Q6H PRN PRN Reason: PAIN LEVEL 7 - 10 Last Admin: 04/05/19 21:55 Dose: 5 mg Pantoprazole Sodium (Protonix -) 40 mg PO DAILY [facility] Last Admin: 04/06/19 09:47 Dose: 40 mg Zolpidem Tartrate (Ambien -) 5 mg PO HS PRN PRN Reason: INSOMNIA Last Admin: 04/05/19 21:48 Dose: 5 mg Vital Signs: Last Vital Signs Temp Pulse Resp BP Pulse Ox 98.9 F 85 20 117/65 93 L 04/06/19 14:55 04/06/19 14:55 04/06/19 14:55 04/06/19 14:55 04/05/19 20:57 Intake & Output 04/03/19 04/04/19 04/05/19 04/06/19 23:59 23:59 23:59 23:59 Intake Total 2700 4840 2100 550 Output Total 1040 3158 626 8 Balance 1660 1682 1474 542 Neck: Supple Negative JVD No Bruit Respiratory: Clear to A&P bilaterally Cardiovascular: S1 S2 Regular Rate and Rhythm Gastrointestinal: Soft Benign Normal Bowel Sounds Ext: Negative Edema Labs: CBC, BMP 04/06/19 06:50 04/06/19 06:50 Hepatic Panel Total Bilirubin 0.1 mg/dL (0.2-1) L 04/06/19 06:50 AST 57 U/L (15-37) H 04/06/19 06:50 ALT 78 U/L (13-61) H 04/06/19 06:50 Alkaline Phosphatase 47 U/L (45-117) 04/06/19 06:50 Albumin 2.2 g/dl (3.4-5.0) L 04/06/19 06:50 Assessment/Plan ASSESSMENT: 1. 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 Post appendectomy for acute perforated appendicitis with abscess formation 3. Anemia PLAN: 1. Continue Toprol XL (preferable AV quan blocking agent) 2. Continue ASA for now 3. Continue antibiotics as per the primary team 4. Eventual outpatient evaluation by EP service for possible RFA as opposed to continuation of medical therapy life long, pending complete recovery from the above noted pathology Celina Capellan M.D.
[2019-04-06] MEDS: metroNIDAZOLE 250 MG TABLET PO SCH ×2 (17:16→21:33)
[2019-04-06] MEDS: oxyCODONE HCL 5 MG TABLET PO PRN (19:24)
[2019-04-06] MEDS: ZOLPIDEM TARTRATE 5 MG TABLET PO PRN (21:33)
[2019-04-07] MEDS: metroNIDAZOLE 250 MG TABLET PO SCH ×2 (06:06→13:41)
[2019-04-07] MEDS: HEPARIN NA (PORCINE) 5,000 UNITS/ML 1ML VIAL SQ SCH ×2 (06:06→13:41)
[2019-04-07] MEDS: oxyCODONE HCL 5 MG TABLET PO PRN (06:50)
[2019-04-07] MEDS ORDERED: ERTAPENEM SODIUM 1 GM in SODIUM CHLORIDE 50 ML IVPB SCH (10:00)
[2019-04-07] MEDS: PANTOPRAZOLE 40 MG TABLET PO SCH (11:05)
[2019-04-07] MEDS: DOCUSATE SODIUM 100 MG CAPSULE (FP) PO SCH (11:05)
[2019-04-07] MEDS: ASPIRIN COATED 81 MG TABLET.EC PO SCH (11:05)
--- NOTE | 2019-04-07 12:20 | PN ---
Progress Note, Physician History of Present Illness: stable no new issues - Current Medication List Current Medications: Active Medications Aspirin (Ecotrin -) 81 mg PO DAILY [facility] Last Admin: 04/07/19 11:05 Dose: 81 mg Docusate Sodium (Colace -) 100 mg PO BID [facility] Last Admin: 04/07/19 11:05 Dose: 100 mg Heparin Sodium (Porcine) (Heparin -) 5,000 unit SQ TID [facility] Last Admin: 04/07/19 06:06 Dose: 5,000 unit Ertapenem 1 gm/ Sodium (Chloride) 50 mls @ 100 mls/hr IVPB DAILY [facility] Stop: 04/20/19 10:29 Last Admin: 04/07/19 11:02 Dose: 100 mls/hr Metoprolol Succinate (Toprol Xl -) 50 mg PO DAILY [facility] Last Admin: 04/07/19 11:05 Dose: 50 mg Metronidazole (Flagyl -) 500 mg PO TID [facility] Last Admin: 04/07/19 06:06 Dose: 500 mg Oxycodone HCl (Roxicodone -) 5 mg PO Q6H PRN PRN Reason: PAIN LEVEL 7 - 10 Last Admin: 04/07/19 06:50 Dose: 5 mg Pantoprazole Sodium (Protonix -) 40 mg PO DAILY [facility] Last Admin: 04/07/19 11:05 Dose: 40 mg Zolpidem Tartrate (Ambien -) 5 mg PO HS PRN PRN Reason: INSOMNIA Last Admin: 04/06/19 21:33 Dose: 5 mg - Objective Vital Signs: Vital Signs Temperature 98.3 F 04/07/19 06:00 Pulse Rate 100 H 04/07/19 10:15 Respiratory Rate 18 04/07/19 10:15 Blood Pressure 114/84 04/07/19 10:15 O2 Sat by Pulse Oximetry (%) 97 04/07/19 10:15 Constitutional: Yes: No Distress, Calm Cardiovascular: Yes: S1, S2 Respiratory: Yes: Regular, CTA Bilaterally Gastrointestinal: Yes: Normal Bowel Sounds, Soft, Other (drains) Musculoskeletal: Yes: WNL Extremities: Yes: WNL Neurological: Yes: Alert, Oriented Psychiatric: Yes: Alert, Oriented Labs: CBC, BMP 04/06/19 06:50 04/06/19 06:50 INR, PTT INR 1.36 (0.83-1.09) H 04/01/19 12:08 Assessment/Plan 38 M no PMHx, w/ acute ruptured appendicitis with abscess abd pain appensdicitis abd abscess pain leukocytosis - Problems (1) SVT (supraventricular tachycardia) Code(s): I47.1 - SUPRAVENTRICULAR TACHYCARDIA (2) Perforated appendicitis Code(s): K35.32 - ACUTE APPENDICITIS WITH PERF AND LOC PERITONITIS, W/O ABSCS liver abscess plan continue abx will need 4 weeks total will d/w the team
--- NOTE | 2019-04-07 14:27 | DS ---
Physical Exam: SUBJECTIVE: Patient seen and examined at the bedside. Sitting up in bed, feels well and eager to go home. He has been taught how to manage his drains at home , record the output and advised to practice good hand washing skills. He will be discharged home and will need follow up with IR on Saturday to determine length of time drains will need to remain in place. After antibiotics complete, patient will need to follow up with Dr. Ramirez for scheduling on appendectomy. OBJECTIVE: Patient is a 38 year old male with a significant past medical history of ADHD ( has been off his medications for weeks per patient) who presented to the ED on for abdominal pain and found to have a ruptured appendix with abscess formation (drain placed on admission). He has been medically managed since admission on IV Zosyn. Hospitalization complicated on 04/01/2019 when patient developed SVT, became diaphoretic, c/o of chest pain, difficulty breathing and became hypotensive when on . He was transferred to [address] [place] [address] for cardiac monitoring. EKG/zoll monitor showed SVT. Adenosine 6mg given with no effect, followed by adenosine 12mg which broke the SVT rhythm to ST in 100s, he was then started on PO cardizem 30mg q6 per cardiology. Patient was again a rapid response on same day when he was down at CT scan for abd and cta when heart rate went into the 200s. He was given cardizem 5 iv push with improvement of heart rate. Patient was then sent to the ICU for closer monitoring. He has been transitioned back to [facility] Surg floor monitoring and will be discharged home today with VNS. He will be sent home with Ertapenem 1 gram for 4 more weeks via PICC line placed today. He will also be sent home with Flagyl 500mg TID for 14 more days. He will eventually need an appendectomy as an outpatient with Dr. Ramirez. Patient to follow up with surgery as an outpatient. Imaging: Echo 03/31/2019: ef 65%, trace mr, trace tricuspid regurg, trace pulm heaven regurg. Chest CTA 03/31/2019: negative for PE, right moderate pleural effusion and small left pleural effusion with consolidation/air suspicious for pneumonia Abd/pelvis CT 03/31/2019: findings show acute appendicitis with multiple appendicoliths, significant stranding in the right lower quad. and multiple collections/abscesses in the pelvis. s/p insertion of a pigtail catheter in the collection in the right that has not improved sig. in size. persistent small collection in the right flank, paracolic gutter along inferior margin of the right liver w/o gross interval change. persistent large collection in the mid pelvis. thickening of small bowel loops in the lower abdomen. Vital Signs Period Temp Pulse Resp BP Sys/Thomas Pulse Ox Last 24 Hr 98.3 F-99.7 F 85-102 18-20 103-118/60-84 95-97 PHYSICAL EXAM GENERAL: The patient is awake, alert, and fully oriented, in no acute distress. HEAD: Normal with no signs of trauma. EYES: PERRL, extraocular movements intact, sclera anicteric, conjunctiva clear. ENT: Ears normal, nares patent, oropharynx clear without exudates, moist mucous membranes. NECK: Trachea midline, full range of motion, supple. LUNGS: Breath sounds equal, clear to auscultation bilaterally, no wheezes, no crackles, no accessory muscle use. HEART: Regular rate and rhythm, S1, S2 without murmur, rub or gallop. ABDOMEN: Soft, nontender, nondistended, normoactive bowel sounds, no guarding, no rebound, no hepatosplenomegaly, no masses. EXTREMITIES: 2+ pulses, warm, well-perfused, no edema. NEUROLOGICAL: Cranial nerves II through XII grossly intact. Normal speech, gait not observed. PSYCH: Normal mood, normal affect. SKIN: Warm, dry, normal turgor, no rashes or lesions noted. LABS HOSPITAL COURSE: Date of Admission:03/26/19 Date of Discharge: 04/07/19 Minutes to complete discharge: 60 Discharge Summary Problems reviewed: Yes Reason For Visit: APPENDICITIS Current Active Problems ADHD (Acute) Acute appendicitis (Acute) Acute appendicitis with generalized peritonitis and abscess (Acute) Perforated appendicitis (Acute) Prophylactic measure (Acute) SVT (supraventricular tachycardia) (Acute) Severe sepsis (Acute) Condition: Improved - Instructions Diet, Activity, Other Instructions: Mr. Simental: You were admitted for a perforated appendix and you have been treated with IV antibiotics. You will need to continue antibiotics intravenously and a PICC line was placed. You will need a total of 4 weeks. You were seen by an ID specialist, gyroscope repairer, surgery as well as the hospitalist service. During your hospital stay you developed a rapid heart rate called supraventicular tachycardia and you were evaluated by a gyroscope repairer. Here are our discharge instructions: Perforated appendix You were found to have developed abscess of fluid collections and drains have been placed. You have been taught how to care for your drain. You will need to follow up with Dr Haskins by calling his office for an appointment. You will need to be evaluated to determine how long the drains will need to stay in place. Please follow up with Dr. Ramirez also as you will need to have your appendix removed once your infection is cleared. Antibiotics intravenously: Ertapenem 1 gram once per day and Flagyl 500mg THREE times per day for 14 more days. drains: please keep accurate output on the drains and call Dr. Regalado office on Saturday for a follow up appointment as you may need a repeat CT scan. Elevated heart rate We have started you on a medication called Metoprolol. This will help your heart beat at a normal rhythm. We recommend that you follow up with Dr. Holguin or a gyroscope repairer of your choosing. Pain management: Please take Toradol every 6 hours as needed for pain or discomfort. If your pain is severe, you may take Oxycodone 5mg NEEDED only. Thank you for allowing us to care for you. I am available for questions. Please call me. Deana Alston [place] [employer] [phone] [facility] Referrals: Jean-Paul Ramirez MD [Staff Physician] - Dawood Cuevas MD [Staff Physician] - (PLEASE CALL ON SATURDAY FOR A FOLLOW UP APPOINTMENT) Wilver Romano MD [Staff Physician] - ON STAFF,NOT [Primary Care Provider] - Disposition: HOME - Home Medications Comprehensive Discharge Medication List: Ambulatory Orders Aspirin Coated [Ecotrin -] 81 mg PO DAILY #30 tablet.ec 04/06/19 Ertapenem Sodium [Invanz -] 1 gm IVPB DAILY vial 04/06/19 Lisdexamfetamine Dimesylate [Vyvanse] 50 mg PO DAILY #30 capsule MDD 1 04/06/19 Metoprolol Succinate [Toprol XL -] 50 mg PO DAILY #30 tab.sr.24h 04/06/19 Pantoprazole Sodium [Protonix -] 40 mg PO DAILY #30 tablet.ec 04/06/19 metroNIDAZOLE [Flagyl -] 500 mg PO TID #42 tablet 04/06/19 Ketorolac Tromethamine [Toradol] 10 mg PO TID #30 tablet 04/07/19 Oxycodone HCl 5 mg PO BID PRN #10 tablet MDD 2 tabs 04/07/19 Problem List - Problems (1) Severe sepsis Assessment/Plan: resolved. severe sepsis in the setting of ruptured appendix with abscess collection now resolved. patient to continue on ertapenm 1 gram x 4 more weeks. Flagyl 500mg TID for 14 more days Code(s): A41.9 - SEPSIS, UNSPECIFIED ORGANISM; R65.20 - SEVERE SEPSIS WITHOUT SEPTIC SHOCK (2) SVT (supraventricular tachycardia) Assessment/Plan: resolved on metoprolol outpatient cardiology follow up advised. Code(s): I47.1 - SUPRAVENTRICULAR TACHYCARDIA (3) Chest pain Assessment/Plan: resolved Code(s): R07.9 - CHEST PAIN, UNSPECIFIED (4) Acute appendicitis Assessment/Plan: acute ruptured appendicitis with multiple lower abdominal and pelvic fluid collections suspicious for abscesses. patient with 3 surgical drains. on ertapenem 1 gram, flagyl 500mg tid x 14 days. follow up with surgery as an outpatient for appendectomy. Code(s): K35.80 - UNSPECIFIED ACUTE APPENDICITIS Qualifiers: Acute appendicitis type: with localized peritonitis Appendicitis gangrene presence: without gangrene Appendicitis perforation presence: with perforation Appendicitis abscess presence: with abscess Qualified Code(s): K35.33 - Acute appendicitis with perforation and localized peritonitis, with abscess (5) Acute appendicitis with generalized peritonitis and abscess Assessment/Plan: monitor drain output, patient has been taught to keep a record of output. Code(s): K35.21 - ACUTE APPENDICITIS WITH GEN PERITONITIS, WITH ABSCESS Qualifiers: Appendicitis perforation presence: with perforation (6) Perforated appendicitis Code(s): K35.32 - ACUTE APPENDICITIS WITH PERF AND LOC PERITONITIS, W/O ABSCS (7) Prophylactic measure Assessment/Plan: discharge home. Code(s): Z29.9 - ENCOUNTER FOR PROPHYLACTIC MEASURES, UNSPECIFIED This patient is new to me today: No Emergency Visit: Yes ED Registration Date: 03/26/19 Care time: The patient presented to the Emergency Department on the above date and was hospitalized for further evaluation of their emergent condition. Critical Care patient: No - Discharge Referral Referred to [facility] No
[2019-04-07 15:09] VITALS: BP 114/69; PULSE 92; TEMP 98.4
[2019-04-07 16:36] VITALS: BMI 30.5
== END 2019-04-07 17:17 | disposition home or self-care (01) | DRG 371 ==
LOC: SUPCPDRO 06:15 → JER 06:15 → JERBED 11:52 → J7W 03-27 03:15 → J4S 04-01 08:52 → JICU 04-01 23:30 → J4W 04-02 18:41 → J7W 04-06 01:40
PROVIDERS: ATTEND Nurse Practitioner Family
PROC: 0W9G30Z Drainage of Peritoneal Cavity with Drainage Device, Percutaneous Approach (ICD-10-PCS; principal; 2019-04-01)
PROC: 02HV33Z Insertion of Infusion Device into Superior Vena Cava, Percutaneous Approach (ICD-10-PCS; 2019-04-07)
PROC: B518ZZA Fluoroscopy of Superior Vena Cava, Guidance (ICD-10-PCS; 2019-04-07)
DX: K35.33 Acute appendicitis with perforation, localized peritonitis, and gangrene, with abscess (principal); A40.8 Other streptococcal sepsis; R65.20 Severe sepsis without septic shock; I47.1 Supraventricular tachycardia; J90 Pleural effusion, not elsewhere classified; R10.32 Left lower quadrant pain; R19.7 Diarrhea, unspecified; M54.5 Low back pain; F90.9 Attention-deficit hyperactivity disorder, unspecified type; D64.9 Anemia, unspecified
CPT/HCPCS: 36415; 36569; 49405; 49406; 71275-TC; 74177-TC; 76098-TC-FY; 76380-TC; 77001-TC-FY; 80053; 80307; 81003; 82272; 82550; 82728; 82962; 83540; 83550; 83605; 83690; 83735; 84100; 84484; 85025; 85610; 85730; 86850; 86900; 86901; 87040; 87045; 87046; 87070; 87075; 87086; 87177; 87186; 87205; 87209; 87324; 87449; 87899; 93005; 93010; 93306-TC; 94010; 97116-GP; 97161-GP; 99285-25; C1729; C1751; C1769; G0008; J0131; J1644; J7030; Q2036; Q9967

== ENCOUNTER 2019-04-18 03:48 | Observation (INO) | payer OTHER ==
[2019-04-18 04:00] VITALS: BMI 30.3
[2019-04-18] MEDS ORDERED: SODIUM CHLORIDE 0.9% 500 ML INFUS.BAG IV ONE (04:07)
--- NOTE | 2019-04-18 04:07 | PDOC ---
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 Hannon gave him a clean bill of health. Pt has SVT on arrival HR is slow at 153, due to the fact that he has been taking his metoprolol. Pt says that he had an episode of SVT 2 weeks ago. He was admitted to our hospital and evaluated by cards Dr. Romano; pt has normal exam today after we broke the SVT. Pt also had a full heart eval in house and was told his heart is normal. - Physicial Exam PE: 04/18/19 04:46 Agree with resident exam. Afebrile Pt is tachycardic and dry. Lungs CTAb Abd soft NT ND increased bowel sounds No rashes Ext: no C/C/E 04/18/19 05:30 - Medical Decision Making 04/18/19 05:24 All labs are normal CXR shows increased markings in the right chest. 04/18/19 05:26 Pt will be admitted for observation
[2019-04-18] MEDS ORDERED: ADENOSINE 6 MG/2 ML VIAL IVPUSH ONE ×4 (04:13→04:35)
[2019-04-18 05:00] LABS: BASO % 2.1 % (0-2.0); EOS % 7.6 % (0-4.5); HEMATOCRIT 32.9 % (35.4-49); HEMOGLOBIN 11.3 GM/dL (11.7-16.9); LYMPH % 17.6 % (8-40); MCH 29.9 pg (25.7-33.7); MCHC 34.3 g/dl (32.0-35.9); MEAN CELL VOLUME 87.2 fl (80-96); MEAN PLT VOLUME 8.5 fl (7.5-11.1); MONO % 9.7 % (3.8-10.2); PLATELET COUNT 424 K/MM3 (134-434); RBC 3.77 M/mm3 (4.00-5.60); RDW 12.8 % (11.9-15.9)
[2019-04-18 05:01] LABS: INR 1.19 (0.83-1.09); PROTHROMBIN TIME (PATIENT) 14.1 SEC (9.7-13.0)
[2019-04-18 05:04] LABS: ACTIVATED PTT 35.6 SECONDS (25.2-36.5)
[2019-04-18 05:14] LABS: ALBUMIN 2.5 g/dl (3.4-5.0); ALK PHOS 55 U/L (45-117); ANION GAP 7 MMOL/L (8-16); BILIRUBIN,TOTAL 0.1 mg/dL (0.2-1); BLOOD UREA NITROGEN 19.7 mg/dL (7-18); CHLORIDE 109 mmol/L (98-107); CO2 25 mmol/L (21-32); CREATININE 0.8 mg/dL (0.55-1.3); GLUCOSE,RANDOM 93 mg/dL (74-106); MAGNESIUM 1.8 mg/dL (1.8-2.4); POTASSIUM 4.4 mmol/L (3.5-5.1); SGOT/AST 28 U/L (15-37); SGPT/ALT 49 U/L (13-61); SODIUM 141 mmol/L (136-145); TOT PROT 6.7 g/dl (6.4-8.2)
[2019-04-18] MEDS ORDERED: SODIUM CHLORIDE 1,000 ML IV STA (05:22)
--- NOTE | 2019-04-18 05:22 | PDOC ---
History of Present Illness - General Chief Complaint: Tachycardia Stated Complaint: CHEST PAIN Time Seen by Provider: 04/18/19 03:59 History Source: Patient Exam Limitations: No Limitations - History of Present Illness Initial Comments: 04/18/19 05:44 38 yo male pmh ruptured appendix leading to sepsis and SVT (04/01/2019) presents to the ED for SVT elevated R. Pt states tonight he suddenly felt lightheaded and chest palpitations which felt similar to SVT recently, called EMS. No medications given by EMS. Pt has PICC line in place and is getting IV antibiotics. Pt admits to recent diarrhea otherwise has no new medical complaints. Past History - Past Medical History Allergies/Adverse Reactions: Allergies Allergy/AdvReac Type Severity Reaction Status Date / Time No Known Allergies Allergy Verified 04/18/19 04:00 Home Medications: Ambulatory Orders Aspirin Coated [Ecotrin -] 81 mg PO DAILY #30 tablet.ec 04/06/19 Ertapenem Sodium [Invanz -] 1 gm IVPB DAILY vial 04/06/19 Lisdexamfetamine Dimesylate [Vyvanse] 50 mg PO DAILY #30 capsule MDD 1 04/06/19 Metoprolol Succinate [Toprol XL -] 50 mg PO DAILY #30 tab.sr.24h 04/06/19 Pantoprazole Sodium [Protonix -] 40 mg PO DAILY #30 tablet.ec 04/06/19 metroNIDAZOLE [Flagyl -] 500 mg PO TID #42 tablet 04/06/19 Ketorolac Tromethamine [Toradol] 10 mg PO TID #30 tablet 04/07/19 Oxycodone HCl 5 mg PO BID PRN #10 tablet MDD 2 tabs 04/07/19 COPD: No GI Disorders: No Lung CA: No - Surgical History Cholecystectomy: No - Immunization History Immunization Up to Date: No - Psycho Social/Smoking Cessation Hx Smoking History: Never smoked Have you smoked in the past 12 months: Yes Number of Cigarettes Smoked Daily: 6 'Breaking Loose' booklet given: 03/27/19 Hx Alcohol Use: No Drug/Substance Use Hx: No Substance Use Type: Alcohol Hx Substance Use Treatment: No Review of Systems - Review of Systems Constitutional: No: Chills, Fever Respiratory: No: Shortness of Breath Cardiac (ROS): Yes: Lightheadedness, Palpitations. No: Chest Pain, Edema ABD/GI: No: Constipated, Diarrhea, Nausea, Vomiting : No: Burning, Dysuria Musculoskeletal: No: Back Pain Integumentary: No: Change in Color Neurological: No: Headache, Weakness *Physical Exam - Vital Signs Last Vital Signs Temp Pulse Resp BP Pulse Ox 98.3 F 102 H 16 136/93 100 04/18/19 03:58 04/18/19 04:39 04/18/19 04:39 04/18/19 04:39 04/18/19 04:53 - Physical Exam General Appearance: Yes: Nourished, Appropriately Dressed. No: Apparent Distress HEENT: positive: EOMI Neck: positive: Supple. negative: Carotid bruit Respiratory/Chest: positive: Lungs Clear, Normal Breath Sounds. negative: Respiratory Distress, Accessory Muscle Use, Rapid RR, Crackles, Rales, Rhonchi, Stridor, Wheezing Cardiovascular: positive: Regular Rhythm, Tachycardia (SVT) Vascular Pulses: Dorsalis-Pedis (R): 4+, Doralis-Pedis (L): 4+ Gastrointestinal/Abdominal: positive: Flat, Soft. negative: Pulsatile Mass, Protuberent, Distended, Guarding, Rebound, Tenderness Musculoskeletal: negative: CVA Tenderness Extremity: positive: Normal Capillary Refill, Normal Inspection, Normal Range of Motion Integumentary: positive: Normal Color, Dry, Warm Neurologic: positive: Fully Oriented, Alert, Normal Mood/Affect, Normal Response ED Treatment Course - LABORATORY CBC & Chemistry Diagram: 04/18/19 03:30 04/18/19 03:30 - ADDITIONAL ORDERS Additional order review: Laboratory Results 04/18/19 04/18/19 03:30 03:30 PT with INR 14.10 H INR 1.19 H PTT (Actin FS) 35.6 Sodium 141 Potassium 4.4 Chloride 109 H Carbon Dioxide 25 Anion Gap 7 L BUN 19.7 H Creatinine 0.8 Est GFR (CKD-EPI)AfAm 132.27 Est GFR (CKD-EPI)NonAf 114.12 Random Glucose 93 Calcium 8.0 L Magnesium 1.8 Total Bilirubin 0.1 L AST 28 ALT 49 Alkaline Phosphatase 55 Creatine Kinase 101 Troponin I < 0.02 Total Protein 6.7 Albumin 2.5 L 04/18/19 03:30 RBC 3.77 L MCV 87.2 MCHC 34.3 RDW 12.8 MPV 8.5 Neutrophils % 63.0 Lymphocytes % 17.6 Monocytes % 9.7 Eosinophils % 7.6 H D Basophils % 2.1 H - RADIOLOGY Radiology Studies Ordered: Category Date Time Status CHEST X-RAY PORTABLE* [RAD] Stat Radiology 04/18/19 04:34 Taken - Medications Given in the ED: ED Medications Discontinued Medications Generic Name Dose Route Start Last Admin Trade Name Yovany PRN Reason Stop Dose Admin Adenosine 6 mg 04/18/19 04:13 04/18/19 04:36 Adenocard - IVPUSH 04/18/19 04:14 6 mg ONCE ONE Administration Adenosine 12 mg 04/18/19 04:35 04/18/19 04:37 Adenocard - IVPUSH 04/18/19 04:36 12 mg ONCE ONE Administration Sodium Chloride 1,000 ml 04/18/19 04:07 04/18/19 04:08 Normal Saline - IV 04/18/19 04:08 1,000 ml ONCE ONE Administration Medical Decision Making - Medical Decision Making 04/18/19 05:49 38 yo male pmh ruptured appendix leading to sepsis and SVT (04/01/2019) presents to the ED for SVT elevated R. Pt states tonight he suddenly felt lightheaded and chest palpitations which felt similar to SVT recently, called EMS. No medications given by EMS. Pt has PICC line in place and is getting IV antibiotics. Pt admits to recent diarrhea otherwise has no new medical complaints. Vitals WNL Pt presents with HR in the 150s-160s persistent EKG shows SVT. Noted in SVT run from 04/01/2019 it took 12 mg of adenosine to break Pt on quality assurance monitor chassis, pa attached to zoll, running rhythm strip. After 6 mg adenosine, no break of rhythm. 12 mg given and pt responds to treatment. R in the 80s-90s, reports improvement of symptoms Trops neg pt feels unsafe going home at this time Due to persistent SVT after treatment of infection, pt requires Cardiology evaluation 04/18/19 06:10 Discussed case with hospitalist team, agree to tele obs admission Discharge - Discharge Information Problems reviewed: Yes Clinical Impression/Diagnosis: SVT (supraventricular tachycardia) - Admission Yes - Follow up/Referral - Patient Discharge Instructions - Post Discharge Activity
[2019-04-18] MEDS ORDERED: ENOXAPARIN NA (PORCINE) 40 MG/0.4 ML DISP.SYRIN SQ ONE (09:03)
[2019-04-18] MEDS ORDERED: ENOXAPARIN NA (PORCINE) 40 MG/0.4 ML DISP.SYRIN SQ SCH (10:00)
[2019-04-18] MEDS ORDERED: ERTAPENEM SODIUM 1 GM in SODIUM CHLORIDE 50 ML IVPB SCH (11:30)
--- NOTE | 2019-04-18 11:44 | CON.CARD ---
Consult Consult Specialty:: Cardiology for Dr. Romano Referred by:: Hospitalist Medicine Reason for Consultation:: PSVT - History of Present Illness Chief Complaint: Palpitations and light-headedness History of Present Illness: 38 yo male pmh perforated appendix leading to sepsis, abscess formation, s/p IR drain x 3, abx via PICC line and PSVT (04/01/2019) presents to the ED for recurrent PSVT, with dyspnea, lightheadedness and chest palpitations similar to previous PSVT, did not try vagal maneuvers, converted back to NSR after administration adenosine 6 mg, 12 mg IVP, reports compliance with Toprol XL 50 qd. Pt has PICC line in place and is getting IV antibiotics. - History Source History Provided By: Patient Limitations to Obtaining History: No Limitations - Alcohol/Substance Use Hx Alcohol Use: No - Smoking History Smoking history: Never smoked Have you smoked in the past 12 months: Yes Aproximately how many cigarettes per day: 6 Home Medications - Allergies Allergies/Adverse Reactions: Allergies Allergy/AdvReac Type Severity Reaction Status Date / Time No Known Allergies Allergy Verified 04/18/19 04:00 - Home Medications Home Medications: Ambulatory Orders Aspirin Coated [Ecotrin -] 81 mg PO DAILY #30 tablet.ec 04/06/19 Ertapenem Sodium [Invanz -] 1 gm IVPB DAILY vial 04/06/19 Lisdexamfetamine Dimesylate [Vyvanse] 50 mg PO DAILY #30 capsule MDD 1 04/06/19 Metoprolol Succinate [Toprol XL -] 50 mg PO DAILY #30 tab.sr.24h 04/06/19 Pantoprazole Sodium [Protonix -] 40 mg PO DAILY #30 tablet.ec 04/06/19 metroNIDAZOLE [Flagyl -] 500 mg PO TID #42 tablet 04/06/19 Ketorolac Tromethamine [Toradol] 10 mg PO TID #30 tablet 04/07/19 Oxycodone HCl 5 mg PO BID PRN #10 tablet MDD 2 tabs 04/07/19 Review of Systems - Review of Systems Cardiovascular: reports: Palpitations, Shortness of Breath Neurological: reports: Dizziness Vital Signs: Vital Signs Temperature 98.3 F 04/18/19 03:58 Pulse Rate 90 04/18/19 06:26 Respiratory Rate 16 04/18/19 06:26 Blood Pressure 133/89 04/18/19 06:26 O2 Sat by Pulse Oximetry (%) 98 04/18/19 06:26 Constitutional: Yes: No Distress, Calm Neck: Yes: Supple Respiratory: Yes: Regular, CTA Bilaterally Gastrointestinal: Yes: Normal Bowel Sounds, Soft Cardiovascular: Yes: Regular Rate and Rhythm JVD: No Carotid Bruit: No Heart Sounds: Yes: S1, S2 Edema: No - Other Data Labs, Other Data: CBC, BMP 04/18/19 03:30 04/18/19 03:30 INR, PTT INR 1.19 (0.83-1.09) H 04/18/19 03:30 Troponin, BNP 04/18/19 03:30 Troponin I < 0.02 Troponin, BNP 04/18/19 03:30 Troponin I < 0.02 PSVT @ 167 -> NSR @ 85 Ejection Fraction %: LVEF > or = 40 % Imaging - Results Chest X-ray: Report Reviewed (Right infiltrate) Problem List - Problems (1) SVT (supraventricular tachycardia) Code(s): I47.1 - SUPRAVENTRICULAR TACHYCARDIA (2) Perforated appendicitis Code(s): K35.32 - ACUTE APPENDICITIS WITH PERF AND LOC PERITONITIS, W/O ABSCS Assessment/Plan 04/01/2019 Echo: Normal LV and RV size and fxn LVEF 65%, tr MR, tr-mild TR, RVSP 25 mmHg, tr IN ASSESSMENT: 1. 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 Perforated appendicitis with abscess formation s/p IR drainage on IV abx via PICC line for eventual appendectomy 3. Anemia PLAN: 1. Increase Toprol XL 100 qd, addressed vagal maneuvers to attempt to abort recurrent arrhythmias 2. D/c ASA 81 qd as no evidence of CAD 3. Continue antibiotics course per ID 4. Eventual outpatient evaluation by EP service for possible RFA as opposed to continuation of medical therapy life long, pending complete recovery from the above noted pathology, he should see Dr. Romano in office to arrange, june d/ c from CV-standpoint 5. Outpatient appendectomy 6. Thank you for consultative opportunity
[2019-04-18] MEDS ORDERED: LISDEXAMFETAMINE DIMESYLATE 50 MG PO SCH (11:45)
[2019-04-18] MEDS ORDERED: PANTOPRAZOLE 40 MG TABLET PO SCH (11:45)
[2019-04-18] MEDS ORDERED: ASPIRIN COATED 81 MG TABLET.EC PO SCH (11:45)
--- NOTE | 2019-04-18 11:58 | HP ---
CHIEF COMPLAINT: palpitations PCP: unknown HISTORY OF PRESENT ILLNESS: 38M w/ pmxh of PSVT and recent perforated appendix with abscess formation s/p IR drainage (discharged on 04/07/19 from [facility] currently on IV Ertapanem) presented to the ED with complaints of palpitations. Pt was awoke from sleep around 4am last night due to persistent palpitations called EMS and came to the ED for further evaluation. Of note, during pt's last admission, he was found to be in PSVT where he was given Adenosine after which he converted back to NSR. During the same admission, he again became tachycardic requiring IV cardizem for rate control. Since then, he denied any other episodes of tachycardia or palpitations until his presentation in the ED today. Upon arrival overnight, pt was found to be in SVT. Denies any other symptomatic complaints such as headache , sob, chest pain, chest tightness, abd pain, urinary/bowel symptoms. States he has been taking all of his medications as prescribed since he was discharged from the hospital on 04/07/19. Also states he saw his tester operator earlier that day with no acute findings during his visit. ER course was notable for: (1) EKG showed SVT, given adenosine 6 mg, then 12 mg -- Pt converted to NSR with HR 80-90s. (2) Cardio consulted, ID consulted for continued IV abx use (3) Recent Travel: Denies PAST MEDICAL HISTORY: As per HPI PAST SURGICAL HISTORY: S/p IR drain placement during last hospital admission (04/09) Social History: Smoking: Denies Alcohol: Denies Drugs: Denies Allergies No Known Allergies Allergy (Verified 04/18/19 04:00) HOME MEDICATIONS: Home Medications Medication Instructions Recorded Aspirin Coated [Ecotrin -] 81 mg PO DAILY #30 tablet.ec 04/06/19 Ertapenem Sodium [Invanz -] 1 gm IVPB DAILY vial 04/06/19 Lisdexamfetamine Dimesylate 50 mg PO DAILY #30 capsule MDD 1 04/06/19 [Vyvanse] Metoprolol Succinate [Toprol XL -] 50 mg PO DAILY #30 tab.sr.24h 04/06/19 Pantoprazole Sodium [Protonix -] 40 mg PO DAILY #30 tablet.ec 04/06/19 metroNIDAZOLE [Flagyl -] 500 mg PO TID #42 tablet 04/06/19 Ketorolac Tromethamine [Toradol] 10 mg PO TID #30 tablet 04/07/19 Oxycodone HCl 5 mg PO BID PRN #10 tablet MDD 2 04/07/19 tabs REVIEW OF SYSTEMS CONSTITUTIONAL: Absent: fever, chills, diaphoresis, generalized weakness, malaise, loss of appetite, weight change HEENT: Absent: rhinorrhea, nasal congestion, throat pain, throat swelling, difficulty swallowing, mouth swelling, ear pain, eye pain, visual changes CARDIOVASCULAR: Absent: chest pain, syncope, palpitations, irregular heart rate, lightheadedness , peripheral edema RESPIRATORY: Absent: cough, shortness of breath, dyspnea with exertion, orthopnea, wheezing, stridor, hemoptysis GASTROINTESTINAL: Absent: abdominal pain, abdominal distension, nausea, vomiting, diarrhea, constipation, melena, hematochezia GENITOURINARY: Absent: dysuria, frequency, urgency, hesitancy, hematuria, flank pain, genital pain MUSCULOSKELETAL: Absent: myalgia, arthralgia, joint swelling, back pain, neck pain SKIN: Absent: rash, itching, pallor HEMATOLOGIC/IMMUNOLOGIC: Absent: easy bleeding, easy bruising, lymphadenopathy, frequent infections ENDOCRINE: Absent: unexplained weight gain, unexplained weight loss, heat intolerance, cold intolerance NEUROLOGIC: Absent: headache, focal weakness or paresthesias, dizziness, unsteady gait, seizure, mental status changes, bladder or bowel incontinence PSYCHIATRIC: Absent: anxiety, depression, suicidal or homicidal ideation, hallucinations. PHYSICAL EXAMINATION Vital Signs - 24 hr 04/18/19 04/18/19 04/18/19 03:58 04:35 04:36 Temperature 98.3 F Pulse Rate 152 H Pulse Rate [ 152 H 99 H Radial] Respiratory 16 16 16 Rate Blood Pressure 111/88 Blood Pressure 151/100 121/98 [Left Arm] O2 Sat by Pulse 98 100 100 Oximetry (%) 04/18/19 04/18/19 04/18/19 04:39 04:53 05:24 Temperature Pulse Rate Pulse Rate [ 102 H 95 H Radial] Respiratory 16 16 Rate Blood Pressure Blood Pressure 136/93 128/86 [Left Arm] O2 Sat by Pulse 100 100 100 Oximetry (%) 04/18/19 06:26 Temperature Pulse Rate Pulse Rate [ 90 Radial] Respiratory 16 Rate Blood Pressure Blood Pressure 133/89 [Left Arm] O2 Sat by Pulse 98 Oximetry (%) GENERAL: AAOx3. NAD. Resting comfortably in bed. HEENT: AT/NC. EOMI. MMM. NECK: Normal range of motion, supple without lymphadenopathy, JVD, or masses. LUNGS: CTA B/L. No wheezes or rales noted. Symmetric chest rise. HEART: RRR. Normal S1, S2. No murmurs noted. ABDOMEN: Soft, NT/ND. Normoactive bowel sounds in all 4Qs. No rebound tenderness or guarding. MUSCULOSKELETAL: Normal range of motion at all joints. No bony deformities or tenderness. No CVA tenderness. EXTREMITIES: No peripheral edema noted. RUE PICC line in place. NEUROLOGICAL: Cranial nerves II-XII intact. Normal speech. PSYCHIATRIC: Cooperative. Good eye contact. Appropriate mood and affect. SKIN: Warm, dry, normal turgor, no rashes or lesions noted, normal capillary refill. Laboratory Results - last 24 hr 04/18/19 04/18/19 04/18/19 03:30 03:30 03:30 WBC 12.0 H RBC 3.77 L Hgb 11.3 L Hct 32.9 L MCV 87.2 MCH 29.9 MCHC 34.3 RDW 12.8 Plt Count 424 MPV 8.5 Absolute Neuts (auto) 7.6 Neutrophils % 63.0 Lymphocytes % 17.6 Monocytes % 9.7 Eosinophils % 7.6 H D Basophils % 2.1 H Nucleated RBC % 0 PT with INR 14.10 H INR 1.19 H PTT (Actin FS) 35.6 Sodium 141 Potassium 4.4 Chloride 109 H Carbon Dioxide 25 Anion Gap 7 L BUN 19.7 H Creatinine 0.8 Est GFR (CKD-EPI)AfAm 132.27 Est GFR (CKD-EPI)NonAf 114.12 Random Glucose 93 Calcium 8.0 L Magnesium 1.8 Total Bilirubin 0.1 L AST 28 ALT 49 Alkaline Phosphatase 55 Creatine Kinase 101 Troponin I < 0.02 Total Protein 6.7 Albumin 2.5 L ASSESSMENT/PLAN: 38M w/ pmxh of PSVT and recent perforated appendix with abscess formation s/p IR drainage (discharged on 04/07/19 from [facility] currently on IV Ertapanem) presented to the ED with complaints of palpitations found to be in paroxsymal SVT. #Paroxsymal SVT -In ED, given adenosine 6mg --> 12 mg with successful conversion to NSR, HR ~80s -Cardio consulted for further recs -Pt requires close cardiac outpatient follow up for close monitoring. Per cardio , will need OP evaluation by EP service, can d/c ASA as no evidence of CAD Cont home med: Toprol 100 (per cardio recs) #Recent Perforated Appendix; Resolving. Currently on IV abx. -Pt currently stable, no acute signs of sepsis at this time. -ID consulted (Dr. Ellis) -Will need outpatient surgical follow up Cont home meds: IV Ertapenem 1gm, Flagyl 500 PO TID #Prophylaxis DVT: Lovenox GI: Protonix 40 #FEN -PO hydration -recheck lytes in AM -Regular diet Dispo -Admit to tele obs Visit type - Emergency Visit Emergency Visit: Yes ED Registration Date: 04/18/19 Care time: The patient presented to the Emergency Department on the above date and was hospitalized for further evaluation of their emergent condition. - New Patient This patient is new to me today: Yes Date on this admission: 04/18/19 - Critical Care Critical Care patient: No ATTENDING PHYSICIAN STATEMENT I saw and evaluated the patient. I reviewed the resident's note and discussed the case with the resident. I agree with the resident's findings and plan as documented. SUBJECTIVE: OBJECTIVE: ASSESSMENT AND PLAN:
[2019-04-18] MEDS ORDERED: ERTAPENEM SODIUM 1 GM VIAL ONE (12:01)
[2019-04-18] MEDS ORDERED: ASPIRIN 81 MG CHEWABLE TABLETS ONE (12:01)
[2019-04-18] MEDS ORDERED: PANTOPRAZOLE 40 MG TABLET ONE (12:01)
--- NOTE | 2019-04-18 13:23 | EKG ---
Test Reason : Blood Pressure : / mmHG Vent. Rate : 153 BPM Atrial Rate : 125 BPM P-R Int : 000 ms QRS Dur : 082 ms QT Int : 288 ms P-R-T Axes : 000 050 046 degrees QTc Int : 459 ms SUPRAVENTRICULAR TACHYCARDIA Confirmed by SIMON UGARTE MD ([id number]) on 04/18/2019 1:23:41 PM Referred By: Confirmed By:SIMON UGARTE MD
[2019-04-18] MEDS ORDERED: metroNIDAZOLE 250 MG TABLET PO SCH (14:00)
[2019-04-18 15:02] LABS: BASO % 2.6 % (0-2.0); HEMATOCRIT 32.5 % (35.4-49); HEMOGLOBIN 11.1 GM/dL (11.7-16.9); MCHC 34.1 g/dl (32.0-35.9); MEAN CELL VOLUME 87.9 fl (80-96); MEAN PLT VOLUME 8.3 fl (7.5-11.1); MONO % 9.3 % (3.8-10.2); NEUT % 58.1 % (42.8-82.8); PLATELET COUNT 386 K/MM3 (134-434); RBC 3.69 M/mm3 (4.00-5.60); RDW 12.7 % (11.9-15.9); WHITE BLOOD COUNT 9.2 K/mm3 (4.0-10.0)
[2019-04-18] MEDS ORDERED: metroNIDAZOLE 250 MG TABLET ONE (15:03)
--- NOTE | 2019-04-18 15:10 | CON.ID ---
Consult - History of Present Illness History of Present Illness: Pt seen in the ER. He is a 38 yr old male presenting with episode of SVT. Previous episode a couple of weeks ago and has been followed by Cardiology. Pt was recently hospitalized for Sepsis due to appendiceal rupture and development of intraabdominal/pelvic abscesses. He had drainage catheter placement by IR into the collections and was discharged with a PICC on Ertapenem IV/Flagyl PO to complete total of [address] A/P on 04/16/19 revealed resolving collections. Pt denies any recent fever/chills, abd pain. Had some loose BMs but no persistence of it and no abd cramping. States he has been feeling well otherwise. In the ER, Pt was given Adenosine with convesion to NSR. Antibiotics continued. 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 No: AFIB, Aneurysm, Aortic Insufficiency, Aortic Stenosis, CAD, CHF, Deep Vein Thrombosis, HTN, Hyperlipdemia, WI, Mitral Insufficiency, Mitral Stenosis, Murmur, Pulmonary Hypertension Pulmonary: No: Asthma, Bronchitis, Cancer, COPD, O2 Dependent, Pneumonia, Previously Intubated, Pulmonary Embolus, Pulmonary Fibrosis, Sleep Apnea, Other Gastrointestinal: Yes: Other (Appendicitis/rupture, intra-abdominal abscesses) Hepatobiliary: No: Cirrhosis, Cholelithiasis, Cholecystitis, Choledocholithiasis , Hepatitis A, Hepatitis B, Hepatitis C, Other Renal/: No: Renal Failure, Renal Inusuff, BPH, Cancer, Hematuria, Hemodialysis , Neurogenic Bladder, Renal Calculi, UTI, Other Heme/Onc: No: Anemia, B12 Deficiency, Bleeding Disorder, Cancer, Current Chemotherapy, Current Radiation Therapy, Hemochromatosis, Hypercoaguable State, Myeloproliferative Synd, Sickle Cell Disease, Sickle Cell Trait, Thrombocytopenia, Other Infectious Disease: No: AIDS, C-Diff, Herpes Zoster, HIV, MRSA, STD's, Tuberculosis, VREF, Other Psych: No: Addictions, Anxiety, Bipolar, Depression, Panic, Psychosis, Schizophrenia, Other Musculoskeletal: No: Bursitis, Chronic low back pain, Hemiparesis, Hemiplegia, Osteoarthritis, Paraplegia, Other Rheumatology: No: Fibromyalgia, Gout, Lupus, Rheumatoid Arthritis, Sarcoidosis, Vasculitis, Other ENT: No: Allergic Rhinitis, Sinusitis, Other Endocrine: No: Elmwood's Disease, Yinka's Disease, Diabetes Insipidus, Diabetes Mellitus, Hyperparathyroidism, Hyperthyroidism, Hypothyroidism, Osteopenia, SIADH, Other Dermatology: No: Basal Cell, Cellulitis, Eczema, Melanoma, Psoriasis, Squamous Cell, Other - Past Surgical History Past Surgical History: No: None, AAA Repair, AICD, Amputation, Appendectomy, Arthrosocopy, AV Fistula/Graft, Bariatric Surgery, Breast Biopsy, Bypass, CABG, Carotid Endarterectomy, Cataract Removal, Cholecystectomy, Colectomy, Colonoscopy, Colostomy, Craniotomy, , Cystectomy, Hernia Repair, Hysterectomy, Ileal Conduit, Ileosotomy, Joint Replacement, Kidney Transplant, Laminectomy, Liver Transplant, Mastectomy, Nephrectomy, Oopherectomy, Orchiectomy, Permanent Pacemaker, Prostatectomy, Splenectomy, Stent, Thoracotomy , TURP, Tonsillectomy, Tubal Ligation, Upper Endoscopy, Valve Replacement, Vasectomy, Vein Stripping/Ligation - Alcohol/Substance Use Hx Alcohol Use: No - Smoking History Smoking history: Never smoked Have you smoked in the past 12 months: Yes Aproximately how many cigarettes per day: 6 Home Medications - Allergies Allergies/Adverse Reactions: Allergies Allergy/AdvReac Type Severity Reaction Status Date / Time No Known Allergies Allergy Verified 04/18/19 04:00 - Home Medications Home Medications: Ambulatory Orders Aspirin Coated [Ecotrin -] 81 mg PO DAILY #30 tablet.ec 04/06/19 Ertapenem Sodium [Invanz -] 1 gm IVPB DAILY vial 04/06/19 Lisdexamfetamine Dimesylate [Vyvanse] 50 mg PO DAILY #30 capsule MDD 1 04/06/19 Metoprolol Succinate [Toprol XL -] 50 mg PO DAILY #30 tab.sr.24h 04/06/19 Pantoprazole Sodium [Protonix -] 40 mg PO DAILY #30 tablet.ec 04/06/19 metroNIDAZOLE [Flagyl -] 500 mg PO TID #42 tablet 04/06/19 Ketorolac Tromethamine [Toradol] 10 mg PO TID #30 tablet 04/07/19 Oxycodone HCl 5 mg PO BID PRN #10 tablet MDD 2 tabs 04/07/19 Review of Systems - Review of Systems Constitutional: reports: No Symptoms. denies: Chills, Diaphoresis, Fever, Lethargy, Loss of Appetite, Malaise, Night Sweats, Unintentional Wgt. Loss, Weakness, Other Eyes: reports: No Symptoms. denies: Blind Spots, Blurred Vision, Double Vision , Eye Pain, Floaters, Photophobia, Recent Change in Vision, Other HENT: reports: No Symptoms. denies: Difficult Swallowing, Ear Discharge, Ear Pain, Epistaxis, Gingival Bleeding, Hearing Loss, Mouth Swelling, Nasal Congestion, Ocular Prosthesis, Throat Pain, Toothache, Ringing in Ears, Other Neck: reports: No Symptoms. denies: Decreased ROM, Lumps, Pain on Movement, Stiffness, Swollen Glands, Tenderness, Other Cardiovascular: reports: No Symptoms. denies: Chest Pain, Edema, Palpitations, Shortness of Breath, Other Respiratory: reports: No Symptoms. denies: Cough, Exercise Intolerance, Hemoptysis, Orthopnea, PND, Snoring, SOB, SOB on Exertion, Wheezing, Other Gastrointestinal: reports: No Symptoms. denies: Abdominal Pain, Bloating, Constipation, Diarrhea, Dysphagia, Indigestion, Melena, Nausea, Rectal Bleeding , Vomiting, Vomiting Blood, Other Genitourinary: reports: No Symptoms. denies: Burning, Discharge, Dysuria, Flank Pain, Frequency, Hematuria, Incontinence, Lesions, Menses, Pain, Testicular Mass, Testicular Pain, Testicular Swelling, Urgency, Vaginal Bleeding , Other Musculoskeletal: reports: No Symptoms. denies: Back Pain, Crepitus, Decreased ROM, Extremity Pain, Joint Pain, Joint Swelling, Muscle Pain, Muscle Cramps, Muscle Weakness, Other Integumentary: reports: No Symptoms. denies: Blister, Bruising, Change in Color , Eczema, Erythema, Incision, Lesions, Lump, Pallor, Pruritis, Rash, Wound, Other Neurological: reports: No Symptoms. denies: Change in LOC, Change in Speech, Confusion, Dizziness, Headache, Incoordination, Numbness, Parasthesia, Pre- Existing Deficit, Seizure, Syncope, Tremors, Unsteady Gait, Weakness, Other Endocrine: reports: No Symptoms. denies: Excessive Sweating, Flushing, Increased Hunger, Increased Thirst, Intolerance to Cold, Intolerance to Heat, Unexplained Weight Gain, Unexplained Weight Loss, Other Hematology/Lymphatic: reports: No Symptoms. denies: Easily Bruised, Excessive Bleeding, Swollen Glands, Other Psychiatric: reports: No Symptoms. denies: Altered Sleep Pattern, Anxiety, Depression, Hallucinations, Panic, Paranoia, Suicidal, Other Physical Exam Vital Signs: Vital Signs Temperature 98.3 F 04/18/19 03:58 Pulse Rate 90 04/18/19 06:26 Respiratory Rate 16 04/18/19 06:26 Blood Pressure 133/89 04/18/19 06:26 O2 Sat by Pulse Oximetry (%) 98 04/18/19 06:26 Constitutional: Yes: No Distress, Calm Eyes: Yes: Conjunctiva Clear HENT: No: WNL, Atraumatic, Normocephalic, Drooling, Epistaxis, Hoarseness, Nasal Congestion, Pharyngeal Erythema, Rhinnorhea, Thrush, Tonsillar Exudate, Other Neck: Yes: Supple, Trachea Midline. No: WNL, Decreased ROM, Lymphadenopathy, Rigid, Tenderness, Thyromegaly, Other Cardiovascular: Yes: Regular Rate and Rhythm. No: WNL, Bradycardia, Tachycardia , Pulse Irregular, Bruit, JVD, Gallop, Murmur, Rub, S1, S2, S3, S4, Varicosities , Other Respiratory: Yes: CTA Bilaterally. No: WNL, Regular, Accessory Muscle Use, Bradypnea, Gallito-Ray, Cough, Diminished, Dullness, Hyperresonant, Intubated , Kussmaul, Mechanically Ventilated, On BiPap, On Nasal O2, On Venti-Mask, Orthopnea, Poor Air Entry, Rales, Rhonchi, SOB, SOB on Exertion, Stridor, Tachypnea, Wheezes, Other Gastrointestinal: Yes: Normal Bowel Sounds, Soft Renal/: Yes: WNL. No: Anuria, Bladder Distention, CVA Tenderness - Left, CVA Tenderness - Right, Miller Present, Hematuria, Incontinence, Menses Present, Oliguria, Polyuria, , Scrotal Edema, Urethral Discharge, Vaginal Bleeding, Vaginal Discharge, Other Musculoskeletal: Yes: WNL. No: Back Pain, Joint Stiffness, Joint Swelling, Muscle Pain, Muscle Weakness, Other Extremities: Yes: Other (RUE PICC site without erythema/discharge/pain/ induration, secure in place) Edema: No Integumentary: Yes: WNL Neurological: Yes: Alert, Oriented Psychiatric: Yes: Alert, Oriented Labs: CBC, BMP 04/18/19 03:30 Laboratory Tests 04/18/19 04/18/19 04/18/19 03:30 03:30 03:30 WBC 12.0 H RBC 3.77 L Hgb 11.3 L Hct 32.9 L MCV 87.2 MCH 29.9 MCHC 34.3 RDW 12.8 Plt Count 424 MPV 8.5 Absolute Neuts (auto) 7.6 Neutrophils % 63.0 Lymphocytes % 17.6 Monocytes % 9.7 Eosinophils % 7.6 H D Basophils % 2.1 H Nucleated RBC % 0 PT with INR 14.10 H INR 1.19 H PTT (Actin FS) 35.6 Sodium 141 Potassium 4.4 Chloride 109 H Carbon Dioxide 25 Anion Gap 7 L BUN 19.7 H Creatinine 0.8 Est GFR (CKD-EPI)AfAm 132.27 Est GFR (CKD-EPI)NonAf 114.12 Random Glucose 93 Calcium 8.0 L Magnesium 1.8 Total Bilirubin 0.1 L AST 28 ALT 49 Alkaline Phosphatase 55 Creatine Kinase 101 Troponin I < 0.02 Total Protein 6.7 Albumin 2.5 L 04/18/19 14:40 WBC 9.2 RBC 3.69 L Hgb 11.1 L Hct 32.5 L MCV 87.9 MCH 30.0 MCHC 34.1 RDW 12.7 Plt Count 386 MPV 8.3 Absolute Neuts (auto) 5.3 Neutrophils % 58.1 Lymphocytes % 23.0 D Monocytes % 9.3 Eosinophils % 7.0 H Basophils % 2.6 H Nucleated RBC % 0 PT with INR INR PTT (Actin FS) Sodium Potassium Chloride Carbon Dioxide Anion Gap BUN Creatinine Est GFR (CKD-EPI)AfAm Est GFR (CKD-EPI)NonAf Random Glucose Calcium Magnesium Total Bilirubin AST ALT Alkaline Phosphatase Creatine Kinase Troponin I Total Protein Albumin Imaging - Results Cat Scan: Report Reviewed Problem List - Problems (1) SVT (supraventricular tachycardia) Code(s): I47.1 - SUPRAVENTRICULAR TACHYCARDIA (2) Acute appendicitis with generalized peritonitis and abscess Code(s): K35.21 - ACUTE APPENDICITIS WITH GEN PERITONITIS, WITH ABSCESS Qualifiers: Appendicitis perforation presence: with perforation Assessment/Plan Pt seen in the ER. He is a 38 yr old male presenting with episode of SVT. Recently hospitalized for ruptured appendix/Sepsis with multiple intra- abdominal abscesses and currently on antibiotics. SVT Appendiceal rupture/intra-abdominal abscesses s/p Sepsis -- resume Ertapenem/Flagyl, to complete total of 4 wks of antibiotics as previously instructed -- CT A/P on 04/16/19 results reviewed - resolving collections -- Pt reports recent loose BMs - C. diff testing ordered -- SVT, converted to NSR in ER -- Cardiology following Thank you
[2019-04-18 15:51] VITALS: BP 132/72; PULSE 94; TEMP 98.1
--- NOTE | 2019-04-18 17:23 | DS ---
Physical Exam: SUBJECTIVE: Patient seen and examined. No acute events. OBJECTIVE: Vital Signs Temperature 98.1 F 04/18/19 15:49 Pulse Rate 94 H 04/18/19 15:49 Respiratory Rate 20 04/18/19 15:49 Blood Pressure 132/72 04/18/19 15:49 O2 Sat by Pulse Oximetry (%) 100 04/18/19 15:49 PHYSICAL EXAM GENERAL: AAOx3. NAD. Resting comfortably in bed. HEENT: AT/NC. EOMI. MMM. NECK: Normal range of motion, supple without lymphadenopathy, JVD, or masses. LUNGS: CTA B/L. No wheezes or rales noted. Symmetric chest rise. HEART: RRR. Normal S1, S2. No murmurs noted. ABDOMEN: Soft, NT/ND. Normoactive bowel sounds in all 4Qs. No rebound tenderness or guarding. MUSCULOSKELETAL: Normal range of motion at all joints. No bony deformities or tenderness. No CVA tenderness. EXTREMITIES: No peripheral edema noted. RUE PICC line in place. NEUROLOGICAL: Cranial nerves II-XII intact. Normal speech. PSYCHIATRIC: Cooperative. Good eye contact. Appropriate mood and affect. SKIN: Warm, dry, normal turgor, no rashes or lesions noted, normal capillary refill. LABS CBC, BMP 04/18/19 14:40 04/18/19 03:30 HOSPITAL COURSE: Date of Admission:04/18/19 38M w/ pmxh of PSVT and recent perforated appendix with abscess formation s/p IR drainage (discharged on 04/07/19 from [facility] currently on IV Ertapanem) presented to the ED with complaints of palpitations admitted for paroxsymal SVT. In the ED, pt was found to be in SVT, was subsequently given Adenosine 6 mg , then 12 mg after which he successfully converted back to sinus rhythm. He was seen by the screen making supervisor with recommendation to increase his Metoprolol Succinate dose to 100 QD and to d/c ASA. Additionally, he was seen by infectious disease doctor for continuation of IV Ertapenem as he was currently on IV abx from a previous admission for treatment of perforated appendix w/ abscess formation. Pt remained asymptomatic throughout the rest of his hospital stay. He was discharged home and advised to continue taking his medications with close follow up with his PCP, screen making supervisor, infectious disease doctor, and surgeon (for elective appendectomy). Date of Discharge: 04/18/19 Minutes to complete discharge: 36 Discharge Summary Problems reviewed: Yes Reason For Visit: SUPRAVENTRICULAR TACHYCARDIA Condition: Improved - Instructions Diet, Activity, Other Instructions: You were seen in the hospital for complaints of palpitations. You were found to have paroxsymal supraventricular tachycardia. In the ED, you were given medication to help control your heart rate which worked successfully. Additionally, you were seen by the screen making supervisor who made an adjustment to your medication. He also recommended to follow up as an outpatient for possible ablation. While you were here, you were seen by the infectious disease doctor. You will need to continue taking the rest of your IV and oral antibiotics as prescribed. You are now stable for discharge home. Medications We have made the following changes to your medications: Please STOP taking Metoprolol 50 mg. You may START taking Metoprolol Succinate 100 mg once a day by mouth. Please STOP taking Aspirin 81. Please continue taking the rest of your home medications as prescribed. Follow Up Please follow up with your primary care physician within 1 week. If you do not have one, you may make an appointment at [facility]. Please follow up with your screen making supervisor, Dr. Romano within 1 week. You will need to have close follow up with your screen making supervisor for outpatient evaluation of possible ablation to help resolve your abnormal heart rhythm. Please follow up with your infectious disease doctor, Dr. Ellis within 1 week. Please follow up with your surgeon, Dr. Ramirez, to schedule an outpatient appendectomy. If you experience worsening chest pain, palpitations, shortness of breath, difficulty breathing, fevers/chills or other associated symptoms, please proceed to your nearest emergency room immediately. Referrals: [facility] [place] [facility] [place] [Provider Group] - 1 Week Wilver Romano MD [Staff Physician] - 1 Week Disposition: HOME - Home Medications Comprehensive Discharge Medication List: Ambulatory Orders Ertapenem Sodium [Invanz -] 1 gm IVPB DAILY vial 04/06/19 Lisdexamfetamine Dimesylate [Vyvanse] 50 mg PO DAILY #30 capsule MDD 1 04/06/19 Pantoprazole Sodium [Protonix -] 40 mg PO DAILY #30 tablet.ec 04/06/19 metroNIDAZOLE [Flagyl -] 500 mg PO TID #42 tablet 04/06/19 Metoprolol Succinate [Toprol XL -] 100 mg PO DAILY #30 tab.sr.24h 04/18/19 This patient is new to me today: Yes Date on this admission: 04/18/19 Emergency Visit: Yes ED Registration Date: 04/18/19 Care time: The patient presented to the Emergency Department on the above date and was hospitalized for further evaluation of their emergent condition. Critical Care patient: No - Discharge Referral Referred to [facility] Med [facility] No ATTENDING PHYSICIAN STATEMENT I saw and evaluated the patient. I reviewed the resident's note and discussed the case with the resident. I agree with the resident's findings and plan as documented. SUBJECTIVE: OBJECTIVE: ASSESSMENT AND PLAN:
--- NOTE | 2019-04-18 17:29 | PN ---
Teaching Attending Note Name of Resident: Aura Londono ATTENDING PHYSICIAN STATEMENT I saw and evaluated the patient. I reviewed the resident's note and discussed the case with the resident. I agree with the resident's findings and plan as documented. SUBJECTIVE: Feeling well. No further palpitations/diaphoresis. No associated CP/ lightheadedness/nausea/vomiting OBJECTIVE: Afebrile, Hemodynamically Stable. Last Vital Signs Temp Pulse Resp BP Pulse Ox 98.1 F 94 H 20 132/72 100 04/18/19 15:49 04/18/19 15:49 04/18/19 15:49 04/18/19 15:49 04/18/19 15:49 HEENT - Atraumatic, Normocephalic. HEENT - S1, S2, RRR Lungs - clear to auscultation Abdomen -Soft, non-tender. Bowel Sounds normal. Extremities -no edema, no shelly tenderness. RUE PICC site clean. Neuro - AAO x 3. Tone/Power normal all extremities Laboratory Results - last 24 hr 04/18/19 04/18/19 04/18/19 03:30 03:30 03:30 WBC 12.0 H RBC 3.77 L Hgb 11.3 L Hct 32.9 L MCV 87.2 MCH 29.9 MCHC 34.3 RDW 12.8 Plt Count 424 MPV 8.5 Absolute Neuts (auto) 7.6 Neutrophils % 63.0 Lymphocytes % 17.6 Monocytes % 9.7 Eosinophils % 7.6 H D Basophils % 2.1 H Nucleated RBC % 0 PT with INR 14.10 H INR 1.19 H PTT (Actin FS) 35.6 Sodium 141 Potassium 4.4 Chloride 109 H Carbon Dioxide 25 Anion Gap 7 L BUN 19.7 H Creatinine 0.8 Est GFR (CKD-EPI)AfAm 132.27 Est GFR (CKD-EPI)NonAf 114.12 Random Glucose 93 Calcium 8.0 L Magnesium 1.8 Total Bilirubin 0.1 L AST 28 ALT 49 Alkaline Phosphatase 55 Creatine Kinase 101 Troponin I < 0.02 Total Protein 6.7 Albumin 2.5 L 04/18/19 14:40 WBC 9.2 RBC 3.69 L Hgb 11.1 L Hct 32.5 L MCV 87.9 MCH 30.0 MCHC 34.1 RDW 12.7 Plt Count 386 MPV 8.3 Absolute Neuts (auto) 5.3 Neutrophils % 58.1 Lymphocytes % 23.0 D Monocytes % 9.3 Eosinophils % 7.0 H Basophils % 2.6 H Nucleated RBC % 0 PT with INR INR PTT (Actin FS) Sodium Potassium Chloride Carbon Dioxide Anion Gap BUN Creatinine Est GFR (CKD-EPI)AfAm Est GFR (CKD-EPI)NonAf Random Glucose Calcium Magnesium Total Bilirubin AST ALT Alkaline Phosphatase Creatine Kinase Troponin I Total Protein Albumin Discharge Medications Medication Instructions Recorded Ertapenem Sodium [Invanz -] 1 gm IVPB DAILY vial 04/06/19 Lisdexamfetamine Dimesylate 50 mg PO DAILY #30 capsule MDD 1 04/06/19 [Vyvanse] Pantoprazole Sodium [Protonix -] 40 mg PO DAILY #30 tablet.ec 04/06/19 metroNIDAZOLE [Flagyl -] 500 mg PO TID #42 tablet 04/06/19 Metoprolol Succinate [Toprol XL -] 100 mg PO DAILY #30 tab.sr.24h 04/18/19 ASSESSMENT AND PLAN: 38 year old male with recent history of Appendiceal rupture with abscess and sepsis, discharged on 4 weeks Ertapenem/Flagyl, History of PSVT, presented with palpitations that awoke him from sleep with associated diaphoresis. No CP/ lightheadeness/nausea/vomiting. SVT reverted to NSR after 2nd dose Adenosine 12mg 1. Paroxysmal SVT s/p Adenosine 6mg --> 12mg --> now in SR Seen by Cardiology - Metoprolol XL dose increased from 50mg to 100mg. recent Echo 04/09 normal. Cleared foe discharge by cardiology with recommendation for Cardio out-patient follow up for EP study. 2. Recent history of Appendiceal rupture with abscess s/p IR guided drainage, currently receiving 4 weeks PO Flagyl and IV Ertapenem via RUE PICC Seen by ID- to continue Abx 3. Diarrhea - does not appear infective Leukocytosis resolved. No diarrhea since presentation to the ED. Advised to seek medical attention if any further diarrheal episodes. Will discharge on Probiotics. Medically and Cardiovascularly Stable for discharge with Cardio follow up.
--- NOTE | 2019-04-21 10:35 | EKG ---
Test Reason : Blood Pressure : / mmHG Vent. Rate : 112 BPM Atrial Rate : 112 BPM P-R Int : 146 ms QRS Dur : 084 ms QT Int : 324 ms P-R-T Axes : 045 060 049 degrees QTc Int : 442 ms SINUS TACHYCARDIA OTHERWISE NORMAL ECG WHEN COMPARED WITH ECG OF 18-APR-2019 03:53, NO SIGNIFICANT CHANGE WAS FOUND Confirmed by Dion Coreas MD ([id number]) on 04/21/2019 10:34:44 AM Referred By: Confirmed By:Dion Coreas MD
== END 2019-04-18 15:49 | disposition home or self-care (01) ==
LOC: JER 03:48 → JERBED 06:09
PROC: 3E03329 Introduction of Other Anti-infective into Peripheral Vein, Percutaneous Approach (ICD-10-PCS; principal; 2019-04-18)
PROC: 3E0337Z Introduction of Electrolytic and Water Balance Substance into Peripheral Vein, Percutaneous Approach (ICD-10-PCS; 2019-04-18)
PROC: 3E033GC Introduction of Other Therapeutic Substance into Peripheral Vein, Percutaneous Approach (ICD-10-PCS; 2019-04-18)
PROC: 3E013GC Introduction of Other Therapeutic Substance into Subcutaneous Tissue, Percutaneous Approach (ICD-10-PCS; 2019-04-18)
DX: I47.1 Supraventricular tachycardia (principal); Z87.19 Personal history of other diseases of the digestive system; Z79.82 Long term (current) use of aspirin
CPT/HCPCS: 36415; 71045-TC-FY; 80053; 82550; 83735; 84484; 85025; 85610; 85730; 93005; 93010; 99285-25; G0378; J7030

== ENCOUNTER 2019-05-04 08:46 | Day surgery (SDC) | payer OTHER ==
[2019-05-01 10:13] VITALS: BMI 30.3
[2019-05-04 12:14] VITALS: TEMP 98.3
[2019-05-04 12:31] VITALS: BP 140/75; PULSE 90
[2019-05-04 12:50] LABS: BF WBC & OTHER NUCLEATED CELLS 1607 /mm3
[2019-05-04 13:49] LABS: BODY FLUID MACROPHAGES 6 %; BODY FLUID MESOTHELIAL 3 %; BODY FLUID MONOCYTE 2 %; BODYL FLD EOSINOPHIL 2 %
== END 2019-05-04 13:50 | disposition home or self-care (01) ==
LOC: JRADIR 08:46 → JASU-SURG 08:46 → JRADIR 13:50
PROVIDERS: ATTEND Radiology Diagnostic Radiology
PROC: 0W993ZZ Drainage of Right Pleural Cavity, Percutaneous Approach (ICD-10-PCS; principal; 2019-05-04)
PROC: BB4BZZZ Ultrasonography of Pleura (ICD-10-PCS; 2019-05-04)
DX: J90 Pleural effusion, not elsewhere classified (principal)
CPT/HCPCS: 36415; 71045-TC-FY; 76942; 82042; 82150; 82465; 82945; 83615; 83986; 84157; 87070; 87075; 87102; 87116; 87205; 87206; 87210; 88108; 88305-TC